=== PATIENT | female | born 1985 | race African-American/Black ===

== ENCOUNTER 2016-09-26 10:37 | Emergency (ER) | payer MEDICAID ==
--- NOTE | 2016-09-26 10:47 | ER Document Report ---
ED Medical Screen (RME) - General Stated Complaint: FLU LIKE SYMPTOMS Mode of Arrival: Ambulatory Information source: Patient Notes: Patient presents with congested cough for a day and a half. Reports nausea denies fever vomiting diarrhea. Reports body aches TRAVEL OUTSIDE OF THE [place] IN LAST 30 DAYS: No - Related Data Allergies/Adverse Reactions: NSAIDS (Non-Steroidal Anti-Inflamma [Nsaids] Allergy (Mild, Verified 01/09/16 16 :29) prednisone [Prednisone] Allergy (Mild, Verified 01/09/16 16:29) Past Medical History - Past Medical History Cardiac Medical History: Denies: Hx Atrial Fibrillation, Hx Congestive Heart Failure, Hx Heart Attack , Hx Hypercholesterolemia, Hx Hypertension Pulmonary Medical History: Reports: Hx Bronchitis, Hx Pneumonia Denies: Hx Asthma, Hx COPD Neurological Medical History: Reports: Hx Migraine, Hx Seizures - Increased frequency with stress Endocrine Medical History: Denies: Hx Diabetes Mellitus Type 1. Comment Only: Hx Diabetes Mellitus Type 2 - Gestational Diabetes GI Medical History: Reports: Hx Gastroesophageal Reflux Disease Psychiatric Medical History: Reports: Hx Anxiety, Hx Depression, Hx Personality Disorder Past Surgical History: Reports: Hx Abdominal Surgery, Hx Cholecystectomy, Hx Gastric Bypass Surgery, Hx Oral Surgery, Hx Tonsillectomy - Immunizations Hx Diphtheria, Pertussis, Tetanus Vaccination: Yes - 2011
[2016-09-26] MEDS ORDERED: ALBUTEROL SULFATE HFA (90 MCG/PUFF) 8 GM MDI (1 MDI/ER DISP) IH PRN (11:40)
--- NOTE | 2016-09-26 11:43 | ER Document Report ---
ED General - General Chief Complaint: Congestion Stated Complaint: FLU LIKE SYMPTOMS Mode of Arrival: Ambulatory Information source: Patient Notes: 31 yr old female who is breast feeding presents with ough of 2 day duration intermittently productive white. pt denies any fevers or chills., admits to sob. TRAVEL OUTSIDE OF THE [place] IN LAST 30 DAYS: No - HPI Onset: Other - 2 day duration Onset/Duration: Persistent Quality of pain: Achy Severity: Mild Pain Level: 1 Associated symptoms: Productive cough, Shortness of breath Exacerbated by: Denies Relieved by: Denies Similar symptoms previously: No Recently seen / treated by doctor: No - Related Data Allergies/Adverse Reactions: NSAIDS (Non-Steroidal Anti-Inflamma [Nsaids] Allergy (Mild, Verified 01/09/16 16 :29) prednisone [Prednisone] Allergy (Mild, Verified 01/09/16 16:29) Past Medical History - General Information source: Patient - Social History Smoking Status: Never Smoker Cigarette use (# per day): No Chew tobacco use (# tins/day): No Smoking Education Provided: No Frequency of alcohol use: None Family History: Reviewed & Not Pertinent Patient has suicidal ideation: No Patient has homicidal ideation: No - Past Medical History Cardiac Medical History: Denies: Hx Atrial Fibrillation, Hx Congestive Heart Failure, Hx Heart Attack , Hx Hypercholesterolemia, Hx Hypertension Pulmonary Medical History: Reports: Hx Bronchitis, Hx Pneumonia Denies: Hx Asthma, Hx COPD Neurological Medical History: Reports: Hx Migraine, Hx Seizures - Increased frequency with stress Endocrine Medical History: Denies: Hx Diabetes Mellitus Type 1. Comment Only: Hx Diabetes Mellitus Type 2 - Gestational Diabetes Renal/ Medical History: Denies: Hx Peritoneal Dialysis GI Medical History: Reports: Hx Gastroesophageal Reflux Disease Psychiatric Medical History: Reports: Hx Anxiety, Hx Depression, Hx Personality Disorder Past Surgical History: Reports: Hx Abdominal Surgery, Hx Cholecystectomy, Hx Gastric Bypass Surgery, Hx Oral Surgery, Hx Tonsillectomy - Immunizations Hx Diphtheria, Pertussis, Tetanus Vaccination: Yes - 2011 Review of Systems - Review of Systems Notes: REVIEW OF SYSTEMS: CONSTITUTIONAL : Denies fever, chills, or sweats. Denies recent illness. EENT: Denies eye, ear, throat, or mouth pain or symptoms. Denies nasal or sinus congestion or discharge. Denies throat, tongue, or mouth swelling or difficulty swallowing. CARDIOVASCULAR: Denies chest pain. Denies palpitations or racing or irregular heart beat. Denies ankle edema. RESPIRATORY: admits to sob, productive cough GASTROINTESTINAL: Denies abdominal pain or distention. Denies nausea, vomiting , or diarrhea. Denies blood in vomitus, stools, or per rectum. Denies black, tarry stools. Denies constipation. GENITOURINARY: Denies difficulty urinating, painful urination, burning, frequency, blood in urine, or discharge. FEMALE GENITOURINARY: Denies vaginal bleeding, heavy or abnormal periods, irregular periods. Denies vaginal discharge or odor. MUSCULOSKELETAL: Denies back or neck pain or stiffness. Denies joint pain or swelling. SKIN: Denies rash, lesions or sores. HEMATOLOGIC : Denies easy bruising or bleeding. LYMPHATIC: Denies swollen, enlarged glands. NEUROLOGICAL: Denies confusion or altered mental status. Denies passing out or loss of consciousness. Denies dizziness or lightheadedness. Denies headache. Denies weakness or paralysis or loss of use of either side. Denies problems with gait or speech. Denies sensory loss, numbness, or tingling. Denies seizures. PSYCHIATRIC: Denies anxiety or stress. Denies depression, suicidal ideation, or homicidal ideation. ALL OTHER SYSTEMS REVIEWED AND NEGATIVE. Dictation was performed using [employer] voice recognition software PHYSICAL EXAMINATION: GENERAL: Well-appearing, well-nourished and in no acute distress. HEAD: Atraumatic, normocephalic. EYES: Pupils equal round and reactive to light, extraocular movements intact, conjunctiva are normal. ENT: Nares patent, oropharynx clear without exudates. Moist mucous membranes. NECK: Normal range of motion, supple without lymphadenopathy LUNGS: coarse rhonchi in the left upper lobe HEART: Regular rate and rhythm without murmurs ABDOMEN: Soft, nontender, nondistended abdomen. No guarding, no rebound. No masses appreciated. Female : deferred Musculoskeletal: Normal range of motion, no pitting or edema. No cyanosis. NEUROLOGICAL: Cranial nerves grossly intact. Normal speech, normal gait. Normal sensory, motor exams PSYCH: Normal mood, normal affect. SKIN: Warm, Dry, normal turgor, no rashes or lesions noted. Physical Exam - Vital signs Vitals: Temp Pulse Resp BP Pulse Ox 98.0 F 82 16 128/90 H 100 09/26/16 10:42 09/26/16 10:42 09/26/16 10:42 09/26/16 10:42 09/26/16 10:42 Course - Re-evaluation Re-evalutation: 09/26/16 11:42 pt to be given albuterol inhaler, xray is pending 09/26/16 12:03 Chest x-ray was negative, patient will be treated as uri bronchitis After performing a Medical Screening Examination, I estimate there is LOW risk for ACUTE CORONARY SYNDROME, RESPIRATORY FAILURE, SEPSIS OR MENINGITIS, thus I consider the discharge disposition reasonable. The patient and I have discussed the diagnosis and risks, and we agree with discharging home with close follow- up. We also discussed returning to the Emergency Department immediately if new or worsening symptoms occur. We have discussed the symptoms which are most concerning (e.g., changing or worsening pain, trouble swallowing or breathing, neck stiffness, fever) that necessitate immediate return. - Vital Signs Vital signs: Temp Pulse Resp BP Pulse Ox 98.0 F 82 16 128/90 H 100 09/26/16 10:42 09/26/16 10:42 09/26/16 10:42 09/26/16 10:42 09/26/16 10:42 - Diagnostic Test Radiology reviewed: Image reviewed, Reports reviewed Discharge - Discharge Clinical Impression: Cough URI (upper respiratory infection) Qualifiers: URI type: unspecified viral URI Qualified Code(s): J06.9 - Acute upper respiratory infection, unspecified; B97.89 - Other viral agents as the cause of diseases classified elsewhere Condition: Stable Disposition: HOME, SELF-CARE Instructions: Upper Respiratory Illness ([facility]) Referrals: FRANK BROWER MD [Primary Care Provider] - Follow up in 3-5 days
[2016-09-26 12:47] VITALS: BP 128/81
== END 2016-09-26 12:47 | disposition home or self-care (01) ==
LOC: ER 10:37
DX: J06.9 Acute upper respiratory infection, unspecified (principal); B97.89 Other viral agents as the cause of diseases classified elsewhere; R06.02 Shortness of breath; Z90.49 Acquired absence of other specified parts of digestive tract; Z98.84 Bariatric surgery status
CPT/HCPCS: 99283; 87804; 71020; J3490

== ENCOUNTER 2017-03-16 13:53 | Emergency (ER) | payer MEDICAID ==
[2017-03-16] MEDS ORDERED: LORAZEPAM 0.5 MG TABLET PO ONE (14:08)
--- NOTE | 2017-03-16 14:14 | ER Document Report ---
ED Medical Screen (RME) - General Chief Complaint: Seizure Stated Complaint: FALL/WEAK, BACK PAIN Time Seen by Provider: 03/16/17 14:05 Mode of Arrival: Wheelchair Information source: Patient, Relative TRAVEL OUTSIDE OF THE [place] IN LAST 30 DAYS: No - HPI Onset: This morning Onset/Duration: Sudden Quality of pain: Dull - LOW BACK Severity: Mild Associated Symptoms: Dizzy/lightheaded, Leg swelling, Nausea, Weakness. denies : Abdominal pain, Fever Exacerbated by: Movement Relieved by: Remaining still Similar symptoms previously: Yes - SZS. THOUGHT TO BE STRESS-RELATED Recently seen / treated by doctor: No - Related Data Smoking: Non-smoker Frequency of alcohol use: None Drug Abuse: None Allergies/Adverse Reactions: NSAIDS (Non-Steroidal Anti-Inflamma [Nsaids] Allergy (Mild, Verified 03/16/17 14 :01) prednisone [Prednisone] Allergy (Mild, Verified 03/16/17 14:01) Past Medical History - General Information source: Patient - Social History Cigarette use (# per day): No Chew tobacco use (# tins/day): No Frequency of alcohol use: None Drug Abuse: None Lives with: Spouse/Significant other - Past Medical History Cardiac Medical History: Denies: Hx Atrial Fibrillation, Hx Congestive Heart Failure, Hx Heart Attack , Hx Hypercholesterolemia, Hx Hypertension Pulmonary Medical History: Reports: Hx Bronchitis, Hx Pneumonia Denies: Hx Asthma, Hx COPD Neurological Medical History: Reports: Hx Migraine, Hx Seizures - Increased frequency with stress Endocrine Medical History: Denies: Hx Diabetes Mellitus Type 1. Comment Only: Hx Diabetes Mellitus Type 2 - Gestational Diabetes Renal/ Medical History: Denies: Hx Peritoneal Dialysis GI Medical History: Reports: Hx Gastroesophageal Reflux Disease Psychiatric Medical History: Reports: Hx Anxiety, Hx Attention Deficit Hyperactivity Disorder, Hx Depression, Hx Personality Disorder Past Surgical History: Reports: Hx Abdominal Surgery, Hx Cholecystectomy, Hx Gastric Bypass Surgery, Hx Oral Surgery, Hx Tonsillectomy - Immunizations Hx Diphtheria, Pertussis, Tetanus Vaccination: Yes - 2011 Review of Systems - Review of Systems Constitutional: See HPI EENT: No symptoms reported Cardiovascular: See HPI, Edema Respiratory: No symptoms reported Gastrointestinal: See HPI Female Genitourinary: No symptoms reported Musculoskeletal: No symptoms reported Neurological/Psychological: See HPI Physical Exam - Vital signs Vitals: Temp Pulse Resp BP Pulse Ox 98.5 F 96 18 105/61 100 07/16/17 14:00 03/16/17 14:00 03/16/17 14:00 03/16/17 14:00 03/16/17 14:00 Interpretation: Normal. No: Tachycardic, Tachypneic, Febrile - General General appearance: Appears well, Alert In distress: None Course - Vital Signs Vital signs: Temp Pulse Resp BP Pulse Ox 98.5 F 96 18 105/61 100 03/16/17 14:00 03/16/17 14:00 03/16/17 14:00 03/16/17 14:00 03/16/17 14:00
[2017-03-16 14:33] LABS: ABSOLUTE BASOPHILS # (AUTO) 0.1 10^3/uL (0.0-0.2); ABSOLUTE EOSINOPHILS # (AUTO) 0.2 10^3/uL (0.0-0.6); ABSOLUTE LYMPHOCYTES (AUTO) 2.3 10^3/uL (0.5-4.7); ABSOLUTE MONOCYTES (AUTO) 0.4 10^3/uL (0.1-1.4); ABSOLUTE NEUT (AUTO) 3.3 10^3/uL (1.7-8.2); BASOPHILS % (AUTO) 0.8 % (0-2); EOSINOPHILS % (AUTO) 2.5 % (0-6); HEMATOCRIT 26.9 % (36.0-47.0); HGB HCT DIFFERENCE -2.9; LYMPHOCYTES % (AUTO) 37.2 % (13-45); MEAN CORPUSCULAR HEMOGLOBIN 18.6 pg (27.0-33.4); MEAN CORPUSCULAR HGB CONC 29.8 g/dL (32.0-36.0); MONOCYTES % (AUTO) 6.4 % (3-13); RED CELL DISTRIBUTION WIDTH 18.1 % (11.5-14.0); SEGMENTED NEUTROPHILS % (AUTO) 53.1 % (42-78); WHITE BLOOD COUNT 6.3 10^3/uL (4.0-10.5)
--- NOTE | 2017-03-16 14:33 | ER Document Report ---
ED General - General Chief Complaint: Seizure Stated Complaint: FALL/WEAK, BACK PAIN Time Seen by Provider: 03/16/17 14:05 Mode of Arrival: Wheelchair Information source: Patient Notes: 32 yo female with hx fibromyalgia, anemic, seizures (anxiety or stress), depression, ADD, borderine personality disorder,chronic low back pain with sciatica, migraines, gastric bypass, gestational DM, jas, tonsillectomy, wisdom teeth out, c/o lightheaded while in shower 10 am, after sitting down, had a seizure (witnessed by spouse eyes rolled back in head, body and arms shaking while in chair) unresponsive, tried to get up and go to [employer], remembers falling but caught my head at 10:15am. Normally after a seizure can go back to normal after 30 minutes but not today. Still feels shakey , migraine posterior occiput and forhead, tongue feels deena, inside of body shakey, very weak. c/o lega,feet, ankle swelling for a few days. Neurologist Dr. Sagastume-[place] 1000mg bid, Vimpat 200mg bid, Lyrica, fioricet, oxycodone, viibryd, adderall, xanax. No change in doses.. Last seizure few months ago. No recent illness. Her concern is that she feels so drained and has increased ( more than usual) low back pain with radiation into right buttocks. [facility] pain management. Pt denies oxycodone today. TRAVEL OUTSIDE OF THE [place] IN LAST 30 DAYS: No - Related Data Allergies/Adverse Reactions: NSAIDS (Non-Steroidal Anti-Inflamma [Nsaids] Allergy (Mild, Verified 03/16/17 14 :01) prednisone [Prednisone] Allergy (Mild, Verified 03/16/17 14:01) Past Medical History - General Information source: Patient - Social History Smoking Status: Never Smoker Cigarette use (# per day): No Chew tobacco use (# tins/day): No Frequency of alcohol use: None Drug Abuse: None Lives with: Spouse/Significant other Family History: Reviewed & Not Pertinent Patient has suicidal ideation: No Patient has homicidal ideation: No Pulmonary Medical History: Reports: Hx Bronchitis, Hx Pneumonia Neurological Medical History: Reports: Hx Migraine, Hx Seizures - Increased frequency with stress Endocrine Medical History: Comment Only: Hx Diabetes Mellitus Type 2 - Gestational Diabetes Renal/ Medical History: Denies: Hx Peritoneal Dialysis GI Medical History: Reports: Hx Gastroesophageal Reflux Disease Musculoskeltal Medical History: Reports Hx Fibromyalgia Psychiatric Medical History: Reports: Hx Anxiety, Hx Attention Deficit Hyperactivity Disorder, Hx Depression, Hx Personality Disorder Past Surgical History: Reports: Hx Cholecystectomy, Hx Gastric Bypass Surgery, Hx Oral Surgery, Hx Tonsillectomy - Immunizations Hx Diphtheria, Pertussis, Tetanus Vaccination: Yes - 2011 Review of Systems - Review of Systems Constitutional: See HPI EENT: No symptoms reported Cardiovascular: No symptoms reported Respiratory: No symptoms reported Gastrointestinal: No symptoms reported Genitourinary: No symptoms reported Female Genitourinary: No symptoms reported Musculoskeletal: See HPI Skin: No symptoms reported Hematologic/Lymphatic: No symptoms reported Neurological/Psychological: See HPI Physical Exam - Vital signs Vitals: Temp Pulse Resp BP Pulse Ox 98.5 F 96 18 105/61 100 03/16/17 14:00 03/16/17 14:00 03/16/17 14:00 03/16/17 14:00 03/16/17 14:00 Interpretation: Normal - Notes Notes: sleepy - General General appearance: Appears well, Alert In distress: None - HEENT Head: Normocephalic, Atraumatic Eyes: Normal Conjunctiva: Normal Pupils: PERRL Mucous membranes: Normal Pharynx: Normal Neck: Supple. No: Lymphadenopathy - Respiratory Respiratory status: No respiratory distress Chest status: Nontender Breath sounds: Normal Chest palpation: Normal - Cardiovascular Rhythm: Regular Heart sounds: Normal auscultation Murmur: No - Abdominal Inspection: Normal Distension: No distension Bowel sounds: Normal Tenderness: Nontender. No: Tender Organomegaly: No organomegaly - Back Back: Normal, Tender - lumbar paraspinal muscles. No: Vertebra tenderness - Extremities General upper extremity: Normal inspection, Nontender, Normal color, Normal ROM , Normal temperature General lower extremity: Normal inspection, Nontender, Normal color, Normal ROM , Normal temperature, Normal weight bearing. No: Zahida's sign Ankle: Edema - mild bilateral - Neurological Neuro grossly intact: Yes Cognition: Normal Orientation: AAOx4 Sarah Coma Scale Eye Opening: Spontaneous Sarah Coma Scale Verbal: Oriented Sarah Coma Scale Motor: Obeys Commands Sarah Coma Scale Total: 15 Speech: Normal Motor strength normal: LUE, RUE, LLE, RLE Sensory: Normal Knee - Reflex grade: 1 = Hypoactive - pooja Ankle - Reflex grade: 1 = Hypoactive - pooja - Psychological Associated symptoms: Excessive sleeping, Flat affect - Skin Skin Temperature: Warm Skin Moisture: Dry Skin Color: Normal Skin irregularity: negative: Rash Course - Re-evaluation Re-evalutation: 03/16/17 15:34 falls asleep while taliking with her. HBG 8, lowest recorded at [facility] (8.6). supposed to take iron, not taking it. 03/16/17 15:[address] quintero, give 500ml NS fluid, no blood needed to be transfused. 03/16/17 16:13 neg hem stool. 03/16/17 17:42 dr quintero states OK to go home with iron po. pt feels better, walked to the bathroom. tongue tingling is gone. vitals stable - Vital Signs Vital signs: Temp Pulse Resp BP Pulse Ox 98.5 F 96 18 105/61 100 03/16/17 14:00 03/16/17 14:00 03/16/17 14:00 03/16/17 14:00 03/16/17 14:00 - Laboratory Result Diagrams: 03/16/17 14:10 03/16/17 14:10 Laboratory results interpreted by me: 03/16/17 03/16/17 14:10 14:10 Hgb 8.0 L Hct 26.9 L MCV 63 L MCH 18.6 L MCHC 29.8 L RDW 18.1 H Chloride 109 H Glucose 126 H AST 43 H ALT 80 H Total Protein 6.1 L Albumin 3.2 L Discharge - Discharge Clinical Impression: Elevated liver enzymes, Somnolence, Seizure Anemia Qualifiers: Anemia type: iron deficiency Iron deficiency anemia type: unspecified iron deficiency Qualified Code(s): D50.9 - Iron deficiency anemia, unspecified Chronic back pain Qualifiers: Back pain location: low back pain Back pain laterality: right Sciatica presence : without sciatica Qualified Code(s): M54.5 - Low back pain; G89.29 - Other chronic pain Condition: Good Disposition: HOME, SELF-CARE Instructions: Anemia, Iron Deficiency ([facility]), Seizure, Known Epileptic ([facility]), Fatigue ([facility]) Additional Instructions: take the iron to restore your iron levels and increase your circulating hemaglobin copy of labs given to you for dr. oscar to er if worse see your neurologist dr. sagastume. Please complete the patient satisfaction survey if you get one, and return it.. If you do not receive a survey, then you can go to the [facility] website, [email or web address] and place your comments about your very good care. Thank you very much. It was a pleasure being your medical provider today. Prescriptions: Ferrous Sulfate [Iron] 325 mg PO BID #60 tablet Referrals: PERLA OSCAR MD [Primary Care Provider] - Follow up tomorrow
[2017-03-16 14:37] LABS: APPEARANCE,URINE SLIGHTLY-CLOUDY; BILIRUBIN,URINE NEGATIVE (NEGATIVE); GLUCOSE, URINE NEGATIVE (NEGATIVE); KETONES,URINE NEGATIVE (NEGATIVE); LEUKOCYTE ESTERASE,URINE NEGATIVE (NEGATIVE); NITRITE,URINE NEGATIVE (NEGATIVE); PROTEIN,URINE NEGATIVE (NEGATIVE); URINE SPECIFIC GRAVITY 1.029; UROBILINOGEN,URINE NEGATIVE mg/dL (<2.0)
[2017-03-16 14:50] LABS: ALANINE AMINOTRANSFERASE 80 U/L (9-52); ALBUMIN 3.2 g/dL (3.5-5.0); ALKALINE PHOSPHATASE 92 U/L (38-126); ANION GAP 8 (5-19); ASPARTATE AMINO TRANSFERASE 43 U/L (14-36); BILIRUBIN,DIRECT 0.2 mg/dL (0.0-0.4); BILIRUBIN,TOTAL 0.3 mg/dL (0.2-1.3); BLOOD UREA NITROGEN 9 mg/dL (7-20); CALCIUM 8.9 mg/dL (8.4-10.2); CARBON DIOXIDE 26 mmol/L (22-30); CHLORIDE 109 mmol/L (98-107); CREATININE RESULT 0.81 mg/dL (0.52-1.25); GLUCOSE 126 mg/dL (75-110); MAGNESIUM 1.8 mg/dL (1.6-2.3); POTASSIUM 4.2 mmol/L (3.6-5.0); SODIUM 142.5 mmol/L (137-145); TOTAL PROTEIN 6.1 g/dL (6.3-8.2)
[2017-03-16 14:57] LABS: ANISOCYTOSIS 2+; HELMET CELLS SLIGHT; HYPOCHROMASIA 3+; MICROCYTOSIS 3+; POIKILOCYTOSIS 2+; POLYCHROMASIA SLIGHT
[2017-03-16 14:58] LABS: MEAN CORPUSCULAR VOLUME 63 fl (80-97); OVALOCYTES SLIGHT; TARGET CELLS SLIGHT; TEAR DROP CELLS SLIGHT
[2017-03-16 15:26] LABS: URINE BARBITURATES SCREEN UNCONFIRMED POSITIVE; URINE METHADONE SCREEN NEGATIVE; URINE OPIATES LOW NEGATIVE; URINE PHENCYCLIDINE SCREEN NEGATIVE
[2017-03-16] MEDS ORDERED: NORMAL SALINE 1000 ML 500 ML IV ONE (15:53)
[2017-03-16] MEDS ORDERED: FERROUS SULFATE LIQUID 300 MG/5 ML UDC PO ONE (17:55)
[2017-03-16] MEDS ORDERED: FERROUS SULFATE 325 MG TABLET PO ONE (18:29)
[2017-03-16 20:03] VITALS: BP 123/87
[2017-03-17 15:36] LABS: PATH REVIEW PATHOLOGIST REVIEWED
== END 2017-03-16 20:03 | disposition home or self-care (01) ==
LOC: ER 13:53
DX: D50.9 Iron deficiency anemia, unspecified (principal); M54.5 Low back pain; R74.8 Abnormal levels of other serum enzymes; R40.0 Somnolence; R56.9 Unspecified convulsions; R53.1 Weakness; G89.29 Other chronic pain
CPT/HCPCS: 99284; 36415; 83735; 84703; 85025; 82272; 80053; 81001; 80307; J3490; J7030

== ENCOUNTER 2017-05-25 17:33 | Emergency (ER) | payer MEDICAID ==
[2017-05-25 17:38] VITALS: BP 122/70
[2017-05-25] MEDS ORDERED: LORAZEPAM 1 MG TABLET PO ONE (17:58)
--- NOTE | 2017-05-25 18:01 | ER Document Report ---
ED General - General Chief Complaint: Chest Pain Stated Complaint: CHEST PAIN Time Seen by Provider: 05/25/17 17:52 Mode of Arrival: Ambulatory Information source: Patient Notes: 32-year-old female presents with complaints of left-sided chest pain sharp that comes on all of a sudden when she is stressed. Patient notes when she is relaxed there is no pain but when her kids are anxious that the pain worsens. Patient denies any fevers or chills denies any DVT or PE risk factors. Patient denies any cardiac family history TRAVEL OUTSIDE OF THE [place] IN LAST 30 DAYS: No - HPI Onset: Other - 3 day duration Onset/Duration: Intermittent Quality of pain: Sharp Severity: Mild Pain Level: 1 Associated symptoms: Chest pain Exacerbated by: Other - Anxiety stress Relieved by: Denies Similar symptoms previously: No Recently seen / treated by doctor: No - Related Data Allergies/Adverse Reactions: NSAIDS (Non-Steroidal Anti-Inflamma [Nsaids] Allergy (Mild, Verified 05/25/17 17 :36) prednisone [Prednisone] Allergy (Mild, Verified 05/25/17 17:36) Past Medical History - Social History Smoking Status: Never Smoker Cigarette use (# per day): No Chew tobacco use (# tins/day): No Smoking Education Provided: No Frequency of alcohol use: None Drug Abuse: None Family History: Reviewed & Not Pertinent - Past Medical History Cardiac Medical History: Denies: Hx Atrial Fibrillation, Hx Congestive Heart Failure, Hx Heart Attack , Hx Hypercholesterolemia, Hx Hypertension Pulmonary Medical History: Reports: Hx Bronchitis, Hx Pneumonia Denies: Hx Asthma, Hx COPD Neurological Medical History: Reports: Hx Migraine, Hx Seizures - Increased frequency with stress Endocrine Medical History: Denies: Hx Diabetes Mellitus Type 1. Comment Only: Hx Diabetes Mellitus Type 2 - Gestational Diabetes Renal/ Medical History: Denies: Hx Peritoneal Dialysis GI Medical History: Reports: Hx Gastroesophageal Reflux Disease Musculoskeltal Medical History: Reports Hx Fibromyalgia Psychiatric Medical History: Reports: Hx Anxiety, Hx Attention Deficit Hyperactivity Disorder, Hx Depression, Hx Personality Disorder Past Surgical History: Reports: Hx Abdominal Surgery, Hx Cholecystectomy, Hx Gastric Bypass Surgery, Hx Oral Surgery, Hx Tonsillectomy - Immunizations Hx Diphtheria, Pertussis, Tetanus Vaccination: Yes - 2011 Review of Systems - Review of Systems Notes: REVIEW OF SYSTEMS: CONSTITUTIONAL : Denies fever, chills, or sweats. Denies recent illness. EENT: Denies eye, ear, throat, or mouth pain or symptoms. Denies nasal or sinus congestion or discharge. Denies throat, tongue, or mouth swelling or difficulty swallowing. CARDIOVASCULAR: Admits to chest pain RESPIRATORY: Denies cough, cold, or chest congestion. Denies shortness of breath, difficulty breathing, or wheezing. GASTROINTESTINAL: Denies abdominal pain or distention. Denies nausea, vomiting , or diarrhea. Denies blood in vomitus, stools, or per rectum. Denies black, tarry stools. Denies constipation. GENITOURINARY: Denies difficulty urinating, painful urination, burning, frequency, blood in urine, or discharge. FEMALE GENITOURINARY: Denies vaginal bleeding, heavy or abnormal periods, irregular periods. Denies vaginal discharge or odor. MUSCULOSKELETAL: Denies back or neck pain or stiffness. Denies joint pain or swelling. SKIN: Denies rash, lesions or sores. HEMATOLOGIC : Denies easy bruising or bleeding. LYMPHATIC: Denies swollen, enlarged glands. NEUROLOGICAL: Denies confusion or altered mental status. Denies passing out or loss of consciousness. Denies dizziness or lightheadedness. Denies headache. Denies weakness or paralysis or loss of use of either side. Denies problems with gait or speech. Denies sensory loss, numbness, or tingling. Denies seizures. PSYCHIATRIC: Anxious ALL OTHER SYSTEMS REVIEWED AND NEGATIVE. PHYSICAL EXAMINATION: GENERAL: Well-appearing, well-nourished and in no acute distress. HEAD: Atraumatic, normocephalic. EYES: Pupils equal round and reactive to light, extraocular movements intact, conjunctiva are normal. ENT: Nares patent, oropharynx clear without exudates. Moist mucous membranes. NECK: Normal range of motion, supple without lymphadenopathy LUNGS: Breath sounds clear to auscultation bilaterally and equal. No wheezes rales or rhonchi. HEART: Tachycardic s reproducible chest pain on palpation of the left anterior chest wall ABDOMEN: Soft, nontender, nondistended abdomen. No guarding, no rebound. No masses appreciated. Female : deferred Musculoskeletal: Normal range of motion, no pitting or edema. No cyanosis. NEUROLOGICAL: Cranial nerves grossly intact. Normal speech, normal gait. Normal sensory, motor exams PSYCH: Anxious SKIN: Warm, Dry, normal turgor, no rashes or lesions noted. Dictation was performed using [employer] voice recognition software Physical Exam - Vital signs Vitals: Temp Pulse Resp BP Pulse Ox 99.0 F 112 H 18 122/70 98 05/25/17 17:37 05/25/17 17:37 05/25/17 17:37 05/25/17 17:37 05/25/17 17:37 Course - Re-evaluation Re-evalutation: 05/25/17 18:01 I have very low suspicion for a pulmonary emboli given the symptoms come and go 05/25/17 19:39 lab work imaging noted no significantly abnomality pt notes it is probably anxiety related and i agree álvaro ltreat with decadron (pt ntoes allergy to prednisone is disposition to ulcers, agrees with trying decadron) After performing a Medical Screening Examination, I estimate there is LOW risk for RUPTURED ESOPHAGUS, PNEUMOTHORAX, PULMONARY EMBOLISM, ACUTE CORONARY SYNDROME, OR THORACIC AORTIC DISSECTION, thus I consider the discharge disposition reasonable. I have reevaluated this patient multiple times and no significant life threatening changes are noted. The patient and I have discussed the diagnosis and risks, and we agree with discharging home with close follow-up. We also discussed returning to the Emergency Department immediately if new or worsening symptoms occur. We have discussed the symptoms which are most concerning (e.g., bloody sputum, worsening pain or shortness of breath) that necessitate immediate return. - Vital Signs Vital signs: Temp Pulse Resp BP Pulse Ox 99.0 F 112 H 18 122/70 98 05/25/17 17:37 05/25/17 17:37 05/25/17 17:37 05/25/17 17:37 05/25/17 17:37 - Laboratory Result Diagrams: 05/25/17 18:48 05/25/17 18:48 Laboratory results interpreted by me: 05/25/17 05/25/17 18:48 18:48 WBC 11.3 H Hgb 10.0 L Hct 33.0 L MCV 67 L MCH 20.4 L MCHC 30.4 L RDW 23.9 H Chloride 108 H - Diagnostic Test Radiology reviewed: Image reviewed, Reports reviewed - EKG Interpretation by Al EKG shows normal: Sinus rhythm, Matthews, Intervals, QRS Complexes Rate: Tachycardia Discharge - Discharge Clinical Impression: Anxiety Chest pain Qualifiers: Chest pain type: unspecified Qualified Code(s): R07.9 - Chest pain, unspecified Condition: Stable Disposition: HOME, SELF-CARE Instructions: Chest Pain of Unclear Cause ([facility]) Additional Instructions: Follow up with your physician tomorrow for further care or return to the ED IMMEDIATELY if symptoms worsen or new concerns occur. If you cannot afford to follow up with your primary care physician a list of low cost clinics have been provided at the end of your discharge papers as well. Prescriptions: Lorazepam [Ativan 1 mg Tablet] 1 mg PO Q4 PRN #14 tab PRN Reason:
[2017-05-25] MEDS ORDERED: HYDROCODONE/ACETAMINOPHEN 5-325 MG TABLET PO ONE (18:32)
[2017-05-25 19:00] LABS: ABSOLUTE BASOPHILS # (AUTO) 0.1 10^3/uL (0.0-0.2); ABSOLUTE EOSINOPHILS # (AUTO) 0.1 10^3/uL (0.0-0.6); ABSOLUTE MONOCYTES (AUTO) 0.8 10^3/uL (0.1-1.4); ABSOLUTE NEUT (AUTO) 7.4 10^3/uL (1.7-8.2); BASOPHILS % (AUTO) 0.7 % (0-2); EOSINOPHILS % (AUTO) 0.5 % (0-6); LYMPHOCYTES % (AUTO) 26.4 % (13-45); MEAN CORPUSCULAR HEMOGLOBIN 20.4 pg (27.0-33.4); MEAN CORPUSCULAR HGB CONC 30.4 g/dL (32.0-36.0); MEAN CORPUSCULAR VOLUME 67 fl (80-97); MONOCYTES % (AUTO) 6.9 % (3-13); RED BLOOD COUNT 4.91 10^6/uL (3.72-5.28); RED CELL DISTRIBUTION WIDTH 23.9 % (11.5-14.0); SEGMENTED NEUTROPHILS % (AUTO) 65.5 % (42-78); WHITE BLOOD COUNT 11.3 10^3/uL (4.0-10.5)
--- NOTE | 2017-05-25 19:14 | RADIOLOGY REPORT (SQ) ---
EXAM DESCRIPTION: CHEST PA/LAT COMPLETED DATE/TIME: 05/25/2017 7:02 pm REASON FOR STUDY: chest pain COMPARISON: 09/26/2016 EXAM PARAMETERS: NUMBER OF VIEWS: two views TECHNIQUE: Digital Frontal and Lateral radiographic views of the chest acquired. RADIATION DOSE: NA LIMITATIONS: none FINDINGS: LUNGS AND PLEURA: No opacities, masses or pneumothorax. No pleural effusion. MEDIASTINUM AND HILAR STRUCTURES: No masses or contour abnormalities. HEART AND VASCULAR STRUCTURES: Heart normal size. No evidence for failure. BONES: No acute findings. HARDWARE: None in the chest. OTHER: No other significant finding. IMPRESSION: NO SIGNIFICANT RADIOGRAPHIC FINDING IN THE CHEST. TECHNICAL DOCUMENTATION: JOB ID: [id number] [employer]- All Rights Reserved
[2017-05-25 19:17] LABS: ALANINE AMINOTRANSFERASE 39 U/L (9-52); ALBUMIN 3.8 g/dL (3.5-5.0); ALKALINE PHOSPHATASE 76 U/L (38-126); ANION GAP 9 (5-19); ASPARTATE AMINO TRANSFERASE 23 U/L (14-36); BILIRUBIN,DIRECT 0.2 mg/dL (0.0-0.4); BILIRUBIN,TOTAL 0.2 mg/dL (0.2-1.3); BLOOD UREA NITROGEN 17 mg/dL (7-20); CALCIUM 9.4 mg/dL (8.4-10.2); CARBON DIOXIDE 26 mmol/L (22-30); CHLORIDE 108 mmol/L (98-107); CREATINE KINASE 60 U/L (30-135); CREATININE RESULT 0.77 mg/dL (0.52-1.25); GLUCOSE 84 mg/dL (75-110); POTASSIUM 4.8 mmol/L (3.6-5.0); SODIUM 143.4 mmol/L (137-145); TOTAL PROTEIN 6.8 g/dL (6.3-8.2)
[2017-05-25 19:30] LABS: CREATINE KINASE MB < 0.22 ng/mL (<4.55); TROPONIN I < 0.012 ng/mL
[2017-05-25] MEDS ORDERED: DEXAMETHASONE SOD PHOS INJ 10 MG/1 ML VIAL IM ONE (19:38)
--- NOTE | 2017-05-25 19:54 | EKG REPORT ---
SEVERITY:- OTHERWISE NORMAL ECG - SINUS TACHYCARDIA : Confirmed by: César Joseph MD 25-May-2017 19:53:42
== END 2017-05-25 19:47 | disposition home or self-care (01) ==
LOC: ER 17:33
DX: F41.9 Anxiety disorder, unspecified (principal); R07.9 Chest pain, unspecified; Z90.49 Acquired absence of other specified parts of digestive tract; Z98.84 Bariatric surgery status
CPT/HCPCS: 93005; 99285; 96372; 36415; 82553; 82550; 85025; 80053; 84484; 85379; 71020; 93010; J1100

== ENCOUNTER 2017-06-10 21:10 | Emergency (ER) | payer OTHER ==
[2017-06-10 21:45] VITALS: BP 136/72
--- NOTE | 2017-06-10 22:59 | ER Document Report ---
ED Extremity Problem, Lower - General Chief Complaint: Feet Swelling Stated Complaint: FEET SWOLLEN Time Seen by Provider: 06/10/17 22:50 Notes: The patient is a 32-year-old female, past medical history fibromyalgia, sciatica , presents with 2 days of bilateral ankle swelling that is worse at the end of the day and improves with elevation. She has compression stockings at home, but has not used them. She said that she does not eat a high salt diet. Patient also said that she noticed mild bleeding from the tongue, but this has stopped. Denies shortness of breath, chest pain, nausea, vomiting, fevers, difficulty walking, ankle injury, calf tenderness or back pain. TRAVEL OUTSIDE OF THE [place] IN LAST 30 DAYS: No - Related Data Allergies/Adverse Reactions: NSAIDS (Non-Steroidal Anti-Inflamma [Nsaids] Allergy (Mild, Verified 06/10/17 21 :42) prednisone [Prednisone] Allergy (Mild, Verified 06/10/17 21:42) Past Medical History - General Information source: Patient - Social History Smoking Status: Unknown if Ever Smoked Family History: Reviewed & Not Pertinent Patient has suicidal ideation: No Patient has homicidal ideation: No - Past Medical History Cardiac Medical History: Denies: Hx Atrial Fibrillation, Hx Congestive Heart Failure, Hx Heart Attack , Hx Hypercholesterolemia, Hx Hypertension Pulmonary Medical History: Reports: Hx Bronchitis, Hx Pneumonia Denies: Hx Asthma, Hx COPD Neurological Medical History: Reports: Hx Migraine, Hx Seizures - Increased frequency with stress Endocrine Medical History: Denies: Hx Diabetes Mellitus Type 1. Comment Only: Hx Diabetes Mellitus Type 2 - Gestational Diabetes Renal/ Medical History: Denies: Hx Peritoneal Dialysis GI Medical History: Reports: Hx Gastroesophageal Reflux Disease Musculoskeltal Medical History: Reports Hx Fibromyalgia Psychiatric Medical History: Reports: Hx Anxiety, Hx Attention Deficit Hyperactivity Disorder, Hx Depression, Hx Personality Disorder Past Surgical History: Reports: Hx Abdominal Surgery, Hx Cholecystectomy, Hx Gastric Bypass Surgery, Hx Oral Surgery, Hx Tonsillectomy - Immunizations Hx Diphtheria, Pertussis, Tetanus Vaccination: Yes - 2011 Review of Systems - Review of Systems Notes: REVIEW OF SYSTEMS: CONSTITUTIONAL: -fevers, -chills EENT: -eye pain, -difficulty swallowing, -nasal congestion CARDIOVASCULAR: -chest pain, -syncope. RESPIRATORY: -cough, -SOB GASTROINTESTINAL: -abdominal pain, -nausea, -vomiting, -diarrhea GENITOURINARY: -dysuria, -hematuria MUSCULOSKELETAL: +B/L ankle swelling, -back pain, -neck pain SKIN: -rash or skin lesions. HEMATOLOGIC: -easy bruising or bleeding. LYMPHATIC: -swollen, enlarged glands. NEUROLOGICAL: -altered mental status or loss of consciousness, -headache, - neurologic symptoms PSYCHIATRIC: -anxiety, -depression. ALL OTHER SYSTEMS REVIEWED AND NEGATIVE. Physical Exam - Vital signs Vitals: Temp Pulse Resp BP Pulse Ox 98.6 F 102 H 18 136/72 H 100 06/10/17 21:42 06/10/17 21:42 06/10/17 21:42 06/10/17 21:42 06/10/17 21:42 - Notes Notes: PHYSICAL EXAMINATION: GENERAL: Well-appearing, well-nourished and in no acute distress. HEAD: Atraumatic, normocephalic. EYES: Pupils equal round and reactive to light, extraocular movements intact, sclera anicteric, conjunctiva are normal. Tongue appears dry without active bleeding or thrush. ENT: nares patent, oropharynx clear without exudates. Moist mucous membranes. NECK: Normal range of motion, supple without lymphadenopathy LUNGS: Breath sounds clear to auscultation bilaterally and equal. No wheezes rales or rhonchi. HEART: Regular rate and rhythm without murmurs ABDOMEN: Soft, nontender, normoactive bowel sounds. No guarding, no rebound. No masses appreciated. EXTREMITIES: Normal range of motion. Non-tender ankle. 1+ pitting edema around B /L ankles. No cyanosis. NEUROLOGICAL: Cranial nerves grossly intact. Normal speech, normal gait. Normal sensory and motor exams. PSYCH: Angry affect. SKIN: Warm, Dry, normal turgor, no rashes or lesions noted. Course - Re-evaluation Re-evalutation: Patient appears very well and her vitals are stable. With the mild ankle edema worsening at the end of the day and improving with elevation, she was likely has dependent edema. Instructed her about treatment with low-salt diet, leg elevation and compression socks. She does not require blood work at this time because she is not having any shortness of breath or chest pain to suggest pulmonary edema. She has no bleeding or thrush from her tongue and it appears normal. Patient became angry when I instructed her about symptomatic treatment for the dependent edema. When I asked what her concerns were, she would not provide a straight answer and continued to repeat that her ankles were swollen. No emergent condition identified at this time and patient will follow-up with her primary care physician. Patient presents with multiple vague complaints that did not appear to be concerning for any acute life-threatening pathology. Vitals are within normal limits at triage and at time of discharge. Physical examination is unremarkable. Patient has tolerated oral intake without difficulty. Patient was not noted to be in distress at any point during their ER visit. At this time, based on the reassuring evaluation, I do not suspect an acute [place], pulmonary embolus, aortic dissection, acute intra-abdominal pathology, stroke, DVT or sepsis. Will discharge with return precautions and follow-up recommendations. Verbal discharge instructions given a the bedside and opportunity for questions given. Medication warnings reviewed. Patient is in agreement with this plan and has verbalized understanding of return precautions and the need for primary care follow-up in the next 24-72 hours. - Vital Signs Vital signs: Temp Pulse Resp BP Pulse Ox 98.6 F 102 H 18 136/72 H 100 06/10/17 21:42 06/10/17 21:42 06/10/17 21:42 06/10/17 21:42 06/10/17 21:42 Discharge - Discharge Clinical Impression: Mild peripheral edema Condition: Stable Disposition: HOME, SELF-CARE Additional Instructions: Edema, Peripheral You have swelling in your legs. This is called peripheral edema. It can be caused by "leaky capillaries," inflammation, disease of the leg veins, or excess salt and water in your body. Avoid prolonged standing. If you must sit for a long time, occasionally get up and walk around or elevate your legs. Support stockings can be helpful in limiting swelling. Often diuretic or water pills are used to remove excess salt and water from your body. Call the doctor or return if you develop increased swelling, pain, or redness, shortness of breath, chest pain, or any other significant change.
== END 2017-06-10 23:22 | disposition home or self-care (01) ==
LOC: ER 21:10
DX: R60.9 Edema, unspecified (principal); Z90.49 Acquired absence of other specified parts of digestive tract; Z98.84 Bariatric surgery status
CPT/HCPCS: 99283

== ENCOUNTER → 2017-06-12 | Outpatient (CLI) | payer MEDICAID, OTHER ==
[2017-06-12 21:24] LABS: ABSOLUTE BASOPHILS # (AUTO) 0.1 10^3/uL (0.0-0.2); ABSOLUTE LYMPHOCYTES (AUTO) 2.7 10^3/uL (0.5-4.7); ABSOLUTE MONOCYTES (AUTO) 0.7 10^3/uL (0.1-1.4); ABSOLUTE NEUT (AUTO) 13.2 10^3/uL (1.7-8.2); BASOPHILS % (AUTO) 0.4 % (0-2); EOSINOPHILS % (AUTO) 0.2 % (0-6); HEMATOCRIT 31.4 % (36.0-47.0); HEMOGLOBIN 9.6 g/dL (12.0-15.5); HGB HCT DIFFERENCE -2.6; MEAN CORPUSCULAR HEMOGLOBIN 20.5 pg (27.0-33.4); MEAN CORPUSCULAR HGB CONC 30.5 g/dL (32.0-36.0); MEAN CORPUSCULAR VOLUME 67 fl (80-97); MONOCYTES % (AUTO) 4.2 % (3-13); RED BLOOD COUNT 4.68 10^6/uL (3.72-5.28); RED CELL DISTRIBUTION WIDTH 24.2 % (11.5-14.0); SEGMENTED NEUTROPHILS % (AUTO) 79.2 % (42-78); WHITE BLOOD COUNT 16.7 10^3/uL (4.0-10.5)
[2017-06-12 21:36] LABS: BLOOD UREA NITROGEN 21 mg/dL (7-20); CALCIUM 9.1 mg/dL (8.4-10.2); CARBON DIOXIDE 28 mmol/L (22-30); CHLORIDE 107 mmol/L (98-107); CREATININE RESULT 1.17 mg/dL (0.52-1.25); GLUCOSE 118 mg/dL (75-110); POTASSIUM 4.4 mmol/L (3.6-5.0); SODIUM 144.6 mmol/L (137-145)
[2017-06-12 21:37] LABS: ALANINE AMINOTRANSFERASE 65 U/L (9-52); ALBUMIN 3.5 g/dL (3.5-5.0); ALKALINE PHOSPHATASE 68 U/L (38-126); ANION GAP 10 (5-19); ASPARTATE AMINO TRANSFERASE 46 U/L (14-36); BILIRUBIN,DIRECT 0.2 mg/dL (0.0-0.4); BILIRUBIN,TOTAL 0.2 mg/dL (0.2-1.3); TOTAL PROTEIN 6.1 g/dL (6.3-8.2)
[2017-06-12 21:54] LABS: FREE T3 2.08 pg/mL (2.77-5.27)
[2017-06-12 22:02] LABS: ERYTHROCYTE SEDIMENTATION RATE 10 mm/hr (0-20)
[2017-06-12 22:05] LABS: ANISOCYTOSIS 3+; MICROCYTOSIS 2+; POIKILOCYTOSIS 2+; SCHISTOCYTES SLIGHT; TARGET CELLS 1+; TEAR DROP CELLS 2+
[2017-06-12 22:07] LABS: SMUDGE CELLS PRESENT
[2017-06-12 22:08] LABS: THYROID STIMULATING HORMONE 1.02 uIU/mL (0.47-4.68)
== END ==
LOC: LAB 20:54
PROVIDERS: ATTEND Physician Assistant
DX: K91.2 Postsurgical malabsorption, not elsewhere classified (principal); R60.0 Localized edema; Z98.84 Bariatric surgery status
CPT/HCPCS: 36415; 80053; 82607; 82746; 83036; 83540; 83550; 83880; 84439; 84443; 84481; 85025; 85652

== ENCOUNTER → 2017-06-12 | Outpatient (CLI) | payer SELFPAY ==
--- NOTE | 2017-06-12 22:50 | RADIOLOGY REPORT (SQ) ---
EXAM DESCRIPTION: CHEST PA/LAT COMPLETED DATE/TIME: 06/12/2017 10:05 pm REASON FOR STUDY: CHEST PAIN ; PERIPHERAL EDEMA COMPARISON: 05/25/2017 EXAM PARAMETERS: NUMBER OF VIEWS: two views TECHNIQUE: Digital Frontal and Lateral radiographic views of the chest acquired. RADIATION DOSE: NA LIMITATIONS: none FINDINGS: LUNGS AND PLEURA: No acute opacities, masses or pneumothorax. No pleural effusion. MEDIASTINUM AND HILAR STRUCTURES: 5 cm hiatus hernia. HEART AND VASCULAR STRUCTURES: Heart normal size. No evidence for failure. BONES: No acute findings. HARDWARE: None in the chest. OTHER: No other significant finding. IMPRESSION: New 5 cm hiatus hernia. TECHNICAL DOCUMENTATION: JOB ID: [id number] [email or web address]- All Rights Reserved
--- NOTE | 2017-06-13 00:02 | RADIOLOGY REPORT (SQ) ---
EXAM DESCRIPTION: VENOUS BILATERAL LOWER COMPLETED DATE/TIME: 06/12/2017 11:50 pm REASON FOR STUDY: EDEMA COMPARISON: None. TECHNIQUE: Dynamic and static obrien scale and color images acquired of both lower extremity venous sy stems. Selected spectral images acquired with additional compression and augmentation maneuvers. Imag es stored on PACS. LIMITATIONS: None. FINDINGS: RIGHT LEG COMMON FEMORAL AND FEMORAL: Normal phasicity, compression and augmentation. No visualized echogenic m aterial on obrien scale. No defects on color images. POPLITEAL: Normal compression and augmentation. No visualized echogenic material on obrien scale. No de fects on color images. CALF VESSELS: Normal compression and augmentation. No visualized echogenic material on obrien scale. No defects on color image. GSV AND SSV: Normal compression. No visualized echogenic material on obrien scale. No defects on color images. ANY DEEP VENOUS INSUFFICIENCY: Not evaluated. ANY EVIDENCE OF POPLITEAL CYST: No. OTHER: No other significant finding. LEFT LEG COMMON FEMORAL AND FEMORAL: Normal phasicity, compression and augmentation. No visualized echogenic m aterial on obrien scale. No defects on color images. POPLITEAL: Normal compression and augmentation. No visualized echogenic material on obrien scale. No de fects on color images. CALF VESSELS: Normal compression and augmentation. No visualized echogenic material on obrien scale. No defects on color images. GSV AND SSV: Normal compression. No visualized echogenic material on obrien scale. No defects on color images. ANY DEEP VENOUS INSUFFICIENCY: Not evaluated. ANY EVIDENCE POPLITEAL CYST: No. OTHER: No other significant finding. IMPRESSION: NO EVIDENCE DVT OR SVT IN EITHER LEG. TECHNICAL DOCUMENTATION: JOB ID: [id number] [email or web address]- All Rights Reserved
== END ==
LOC: RAD 21:24
PROVIDERS: ATTEND Physician Assistant
DX: R60.0 Localized edema (principal); M79.604 Pain in right leg; M79.605 Pain in left leg
CPT/HCPCS: 71020; 93970

== ENCOUNTER 2017-06-26 23:26 | Emergency (ER) | payer MEDICAID ==
--- NOTE | 2017-06-27 01:16 | ER Document Report ---
ED General - General Chief Complaint: Cold Symptoms Stated Complaint: CONGESTION Time Seen by Provider: 06/27/17 00:38 Mode of Arrival: Ambulatory Information source: Patient Notes: 32-year-old female presents with complaints of one-week duration of a productive cough intermittent dark green. She denies any fevers or chills denies any nausea vomiting or diarrhea patient notes no shortness of breath Patient denies any DVT or PE risk factors TRAVEL OUTSIDE OF THE [place] IN LAST 30 DAYS: No - HPI Onset: Last week Onset/Duration: Persistent Quality of pain: Achy Severity: Mild Pain Level: 1 Associated symptoms: Body/muscle aches, Productive cough Exacerbated by: Coughing Relieved by: Denies Similar symptoms previously: No Recently seen / treated by doctor: No - Related Data Allergies/Adverse Reactions: NSAIDS (Non-Steroidal Anti-Inflamma [Nsaids] Allergy (Mild, Verified 06/10/17 21 :42) prednisone [Prednisone] Allergy (Mild, Verified 06/10/17 21:42) Past Medical History - Social History Smoking Status: Never Smoker Cigarette use (# per day): No Chew tobacco use (# tins/day): No Smoking Education Provided: No Family History: Reviewed & Not Pertinent Patient has suicidal ideation: No Patient has homicidal ideation: No - Past Medical History Cardiac Medical History: Denies: Hx Atrial Fibrillation, Hx Congestive Heart Failure, Hx Heart Attack , Hx Hypercholesterolemia, Hx Hypertension Pulmonary Medical History: Reports: Hx Bronchitis, Hx Pneumonia Denies: Hx Asthma, Hx COPD Neurological Medical History: Reports: Hx Migraine, Hx Seizures - Increased frequency with stress Endocrine Medical History: Denies: Hx Diabetes Mellitus Type 1. Comment Only: Hx Diabetes Mellitus Type 2 - Gestational Diabetes Renal/ Medical History: Denies: Hx Peritoneal Dialysis GI Medical History: Reports: Hx Gastroesophageal Reflux Disease Musculoskeltal Medical History: Reports Hx Fibromyalgia Psychiatric Medical History: Reports: Hx Anxiety, Hx Attention Deficit Hyperactivity Disorder, Hx Depression, Hx Personality Disorder Past Surgical History: Reports: Hx Abdominal Surgery, Hx Cholecystectomy, Hx Gastric Bypass Surgery, Hx Oral Surgery, Hx Tonsillectomy - Immunizations Hx Diphtheria, Pertussis, Tetanus Vaccination: Yes - 2011 Review of Systems - Review of Systems Notes: REVIEW OF SYSTEMS: CONSTITUTIONAL : Denies fever, chills, or sweats. Denies recent illness. EENT: Denies eye, ear, throat, or mouth pain or symptoms. Denies nasal or sinus congestion or discharge. Denies throat, tongue, or mouth swelling or difficulty swallowing. CARDIOVASCULAR: Denies chest pain. Denies palpitations or racing or irregular heart beat. Denies ankle edema. RESPIRATORY: Admits to productive cough GASTROINTESTINAL: Denies abdominal pain or distention. Denies nausea, vomiting , or diarrhea. Denies blood in vomitus, stools, or per rectum. Denies black, tarry stools. Denies constipation. GENITOURINARY: Denies difficulty urinating, painful urination, burning, frequency, blood in urine, or discharge. FEMALE GENITOURINARY: Denies vaginal bleeding, heavy or abnormal periods, irregular periods. Denies vaginal discharge or odor. MUSCULOSKELETAL: Denies back or neck pain or stiffness. Denies joint pain or swelling. SKIN: Denies rash, lesions or sores. HEMATOLOGIC : Denies easy bruising or bleeding. LYMPHATIC: Denies swollen, enlarged glands. NEUROLOGICAL: Denies confusion or altered mental status. Denies passing out or loss of consciousness. Denies dizziness or lightheadedness. Denies headache. Denies weakness or paralysis or loss of use of either side. Denies problems with gait or speech. Denies sensory loss, numbness, or tingling. Denies seizures. PSYCHIATRIC: Denies anxiety or stress. Denies depression, suicidal ideation, or homicidal ideation. ALL OTHER SYSTEMS REVIEWED AND NEGATIVE. PHYSICAL EXAMINATION: GENERAL: Well-appearing, well-nourished and in no acute distress. HEAD: Atraumatic, normocephalic. EYES: Pupils equal round and reactive to light, extraocular movements intact, conjunctiva are normal. ENT: Nares patent, oropharynx clear without exudates. Moist mucous membranes. NECK: Normal range of motion, supple without lymphadenopathy LUNGS: Intermittent rhonchi noted at the bases bilateral HEART: Regular rate and rhythm without murmurs ABDOMEN: Soft, nontender, nondistended abdomen. No guarding, no rebound. No masses appreciated. Female : deferred Musculoskeletal: Normal range of motion, no pitting or edema. No cyanosis. NEUROLOGICAL: Cranial nerves grossly intact. Normal speech, normal gait. Normal sensory, motor exams PSYCH: Normal mood, normal affect. SKIN: Warm, Dry, normal turgor, no rashes or lesions noted. Dictation was performed using [employer] recognition software Physical Exam - Vital signs Vitals: Temp Pulse Resp BP Pulse Ox 98.2 F 113 H 18 132/82 H 95 06/26/17 23:52 06/26/17 23:52 06/26/17 23:52 06/26/17 23:52 06/26/17 23:52 Course - Re-evaluation Re-evalutation: 06/27/17 01:15 Patient looks extremely well vital signs are stable she is in no distress at this time, chest x-ray is pending 06/27/17 02:31 Chest x-ray noted no significant abnormality however given patient's symptoms I will treat as an occult pneumonia. Patient upon discharge notes nausea and will be sent with a dispensed pack of Zofran at home Patient otherwise looks well is in no distress her daughter was taking care of as well After performing a Medical Screening Examination, I estimate there is LOW risk for ACUTE CORONARY SYNDROME, RESPIRATORY FAILURE, SEPSIS OR MENINGITIS, thus I consider the discharge disposition reasonable. I have reevaluated this patient multiple times and no significant life threatening changes are noted. The patient and I have discussed the diagnosis and risks, and we agree with discharging home with close follow-up. We also discussed returning to the Emergency Department immediately if new or worsening symptoms occur. We have discussed the symptoms which are most concerning (e.g., changing or worsening pain, trouble swallowing or breathing, neck stiffness, fever) that necessitate immediate return. - Vital Signs Vital signs: Temp Pulse Resp BP Pulse Ox 98.2 F 113 H 18 132/82 H 95 06/26/17 23:52 06/26/17 23:52 06/26/17 23:52 06/26/17 23:52 06/26/17 23:52 - Diagnostic Test Radiology reviewed: Image reviewed, Reports reviewed Discharge - Discharge Clinical Impression: Pneumonia Qualifiers: Pneumonia type: due to unspecified organism Laterality: unspecified laterality Lung location: unspecified part of lung Qualified Code(s): J18.9 - Pneumonia, unspecified organism Condition: Stable Disposition: HOME, SELF-CARE Instructions: Pneumonia ([facility]) Additional Instructions: Follow up with your physician tomorrow for further care or return to the ED IMMEDIATELY if symptoms worsen or new concerns occur. If you cannot afford to follow up with your primary care physician a list of low cost clinics have been provided at the end of your discharge papers as well. Prescriptions: Azithromycin 250 mg PO ASDIR PRN #6 tablet PRN Reason:
--- NOTE | 2017-06-27 01:52 | RADIOLOGY REPORT (SQ) ---
EXAM DESCRIPTION: CHEST PA/LAT COMPLETED DATE/TIME: 06/27/2017 1:08 am REASON FOR STUDY: cough productive COMPARISON: 06/12/2017. EXAM PARAMETERS: NUMBER OF VIEWS: two views TECHNIQUE: Digital Frontal and Lateral radiographic views of the chest acquired. RADIATION DOSE: NA LIMITATIONS: none FINDINGS: LUNGS AND PLEURA: No opacities, masses or pneumothorax. No pleural effusion. Mild hyperin flation. MEDIASTINUM AND HILAR STRUCTURES: No masses or contour abnormalities. HEART AND VASCULAR STRUCTURES: Heart normal size. No evidence for failure. BONES: No acute findings. Mild upper lumbar levo convexity. HARDWARE: None in the chest. OTHER: No other significant finding. IMPRESSION: NO SIGNIFICANT RADIOGRAPHIC FINDING IN THE CHEST. TECHNICAL DOCUMENTATION: JOB ID: [id number] [employer]- All Rights Reserved
[2017-06-27] MEDS ORDERED: ONDANSETRON ODT 4 MG TAB (6 TAB/DSPK) PO PRN (02:30)
[2017-06-27 02:56] VITALS: BP 130/80
== END 2017-06-27 02:25 | disposition home or self-care (01) ==
LOC: ER 23:26
DX: J18.9 Pneumonia, unspecified organism (principal); R05 Cough; M79.1 Myalgia; Z88.8 Allergy status to other drugs, medicaments and biological substances
CPT/HCPCS: 71020; 99283

== ENCOUNTER 2017-10-18 13:05 | Emergency (ER) | payer MEDICAID ==
[2017-10-18] MEDS ORDERED: ACETAMINOPHEN 325 MG TABLET PO ONE (14:03)
[2017-10-18] MEDS ORDERED: DIPH/PERTUSS(ACELL)/TETANUS VAC/PF 0.5 ML SYR (>=10YO) IM ONE (14:03)
[2017-10-18] MEDS ORDERED: LIDOCAINE 4%/TETRACAINE 0.5%/EPI 0.18% 5 ML TOPICAL SOLN TOP ONE (14:03)
--- NOTE | 2017-10-18 14:09 | ER Document Report ---
HPI - HPI Patient complains to provider of: Facial laceration Onset: This afternoon Onset/Duration: Sudden Quality of pain: Achy Pain Level: 4 Context: Patient states she was vacuuming and accidentally hit her head on a mantle. Patient denies any loss of consciousness, nausea or vomiting. Patient with laceration to left side of forehead. Associated Symptoms: Other - Facial laceration. denies: Nausea, Vomiting Exacerbated by: Denies Relieved by: Denies Similar symptoms previously: Yes Recently seen / treated by doctor: No - ROS ROS below otherwise negative: Yes Systems Reviewed and Negative: Yes All other systems reviewed and negative - NEURO Neurology: REPORTS: Headache - GASTROINTESTINAL Gastrointestinal: DENIES: Nausea, Patient vomiting - REPRODUCTIVE Reproductive: DENIES: : - MUSCULOSKELETAL Musculoskeletal: DENIES: Back Pain, Neck Pain - DERM Skin Color: Normal Skin Problems: Laceration Past Medical History - General Information source: Patient - Social History Smoking Status: Never Smoker Frequency of alcohol use: None Drug Abuse: None Occupation: None Family History: Reviewed & Not Pertinent - Past Medical History Cardiac Medical History: Denies: Hx Atrial Fibrillation, Hx Congestive Heart Failure, Hx Heart Attack , Hx Hypercholesterolemia, Hx Hypertension Pulmonary Medical History: Reports: Hx Bronchitis, Hx Pneumonia Denies: Hx Asthma, Hx COPD Neurological Medical History: Reports: Hx Migraine, Hx Seizures - Increased frequency with stress Endocrine Medical History: Denies: Hx Diabetes Mellitus Type 1. Comment Only: Hx Diabetes Mellitus Type 2 - Gestational Diabetes Renal/ Medical History: Denies: Hx Peritoneal Dialysis GI Medical History: Reports: Hx Gastroesophageal Reflux Disease Musculoskeltal Medical History: Reports Hx Fibromyalgia Psychiatric Medical History: Reports: Hx Anxiety, Hx Attention Deficit Hyperactivity Disorder, Hx Depression, Hx Personality Disorder Past Surgical History: Reports: Hx Abdominal Surgery, Hx Cholecystectomy, Hx Gastric Bypass Surgery, Hx Oral Surgery, Hx Tonsillectomy - Immunizations Hx Diphtheria, Pertussis, Tetanus Vaccination: Yes - 2011 Vertical Provider Document - CONSTITUTIONAL Agree With Documented VS: Yes Exam Limitations: No Limitations General Appearance: WD/WN, No Apparent Distress - INFECTION CONTROL TRAVEL OUTSIDE OF THE [place] IN LAST 30 DAYS: No - HEENT HEENT: Normocephalic - NECK Neck: Normal Inspection - RESPIRATORY Respiratory: No Respiratory Distress O2 Sat by Pulse Oximetry: 100 - MUSCULOSKELETAL/EXTREMETIES Musculoskeletal/Extremeties: MAEW - NEURO Level of Consciousness: Awake, Alert, Appropriate Motor/Sensory: No Motor Deficit Notes: No focal neurologic deficit - DERM Integumentary: Warm, Dry, Laceration - 1.5 cm lac to forehead Course - Vital Signs Vital signs: Temp Pulse Resp BP Pulse Ox 98.6 F 79 20 131/72 H 100 10/18/17 13:16 10/18/17 13:16 10/18/17 13:16 10/18/17 13:16 10/18/17 13:16 Procedures - Laceration/Wound Repair Face Wound length (cm): 1.5 Wound's Depth, Shape: Linear Laceration pre-procedure: Shur-Clens applied Wound explored: Clean Wound Repaired With: Dermabond Post-procedure NV exam normal: Yes Complications: No Adult Head Front/Back picture: 1 - lac Discharge - Discharge Clinical Impression: Head injury Qualifiers: Encounter type: initial encounter Qualified Code(s): S09.90XA - Unspecified injury of head, initial encounter Facial laceration Qualifiers: Encounter type: initial encounter Qualified Code(s): S01.81XA - Laceration without foreign body of other part of head, initial encounter Condition: Stable Disposition: HOME, SELF-CARE Instructions: Acetaminophen, Facial Laceration ([facility]), Skin Adhesive Closure ( [facility]), Tetanus Immunization Given ([facility]) Additional Instructions: Return immediately for any new or worsening symptoms Followup with your primary care provider, call tomorrow to make a followup appointment Referrals: VIRIDIANA READ MD [ACTIVE STAFF] - Follow up as needed
[2017-10-18 15:22] VITALS: BP 128/71
== END 2017-10-18 15:22 | disposition home or self-care (01) ==
LOC: ER 13:05
PROC: 0HQ1XZZ Repair Face Skin, External Approach (ICD-10-PCS; principal; 2017-10-18)
DX: S09.90XA Unspecified injury of head, initial encounter (principal); S01.81XA Laceration without foreign body of other part of head, initial encounter; W22.09XA Striking against other stationary object, initial encounter; Y93.E3 Activity, vacuuming; Y92.009 Unspecified place in unspecified non-institutional (private) residence as the place of occurrence of the external cause; Z90.49 Acquired absence of other specified parts of digestive tract; Z98.84 Bariatric surgery status; Z23 Encounter for immunization
CPT/HCPCS: 99282; 90715; 12011; J3490

== ENCOUNTER 2018-02-17 23:20 | Emergency (ER) | payer MEDICAID ==
[2018-02-18] MEDS ORDERED: DIPHENHYDRAMINE HCL 50 MG/ML VIAL IV ONE (02:01)
[2018-02-18] MEDS ORDERED: PROCHLORPERAZINE EDISYLATE INJ 10 MG/2 ML VIAL IV ONE (02:01)
[2018-02-18] MEDS ORDERED: KETOROLAC TROMETHAMINE INJ/PF 30 MG/1 ML SDV IV ONE (02:01)
[2018-02-18] MEDS ORDERED: NORMAL SALINE 1000 ML 1,000 ML IV ONE (02:01)
--- NOTE | 2018-02-18 02:08 | ER Document Report ---
ED General - General Mode of Arrival: Ambulatory Information source: Patient TRAVEL OUTSIDE OF THE [place] IN LAST 30 DAYS: No - General Chief Complaint: Headache Stated Complaint: HEADACHES Time Seen by Provider: 02/18/18 01:46 Notes: Patient is a 33 year old female with ADHD, depression, fibromyalgia and a history of migraines presents to the emergency department complaining of a headache for the last several days. Patient states the pain is located on her right worship and on the left side of her head. She states she has taken Tylenol in attempt to relieve her pain but states it has not helped. Patient's associated symptoms include photosensitivity, nausea and sensitivity to noise. Patient denies any vomiting. Patient mentions that she is also having some chest tightness that has been onset for approximately 1 week. She states her chest tightness is exacerbated with deep breathing. Patient is currently taking Adderall, trintellix and using hemp oil. (DARRIAN MORE) - Related Data Allergies/Adverse Reactions: NSAIDS (Non-Steroidal Anti-Inflamma [Nsaids] Allergy (Mild, Verified 10/18/17 13 :06) prednisone [Prednisone] Allergy (Mild, Verified 10/18/17 13:06) Past Medical History - General Information source: Patient - Social History Smoking Status: Never Smoker Cigarette use (# per day): No Chew tobacco use (# tins/day): No Smoking Education Provided: No Frequency of alcohol use: None Family History: Reviewed & Not Pertinent Pulmonary Medical History: Reports: Hx Bronchitis, Hx Pneumonia Neurological Medical History: Reports: Hx Migraine, Hx Seizures - Increased frequency with stress Endocrine Medical History: Comment Only: Hx Diabetes Mellitus Type 2 - Gestational Diabetes GI Medical History: Reports: Hx Gastroesophageal Reflux Disease Musculoskeltal Medical History: Reports Hx Fibromyalgia Psychiatric Medical History: Reports: Hx Anxiety, Hx Attention Deficit Hyperactivity Disorder, Hx Depression, Hx Personality Disorder Past Surgical History: Reports: Hx Abdominal Surgery, Hx Cholecystectomy, Hx Gastric Bypass Surgery, Hx Oral Surgery, Hx Tonsillectomy - Immunizations Hx Diphtheria, Pertussis, Tetanus Vaccination: Yes - 2011 Review of Systems - Review of Systems Constitutional: No symptoms reported EENT: See HPI Cardiovascular: See HPI, Chest pain Respiratory: No symptoms reported Gastrointestinal: No symptoms reported Genitourinary: No symptoms reported Female Genitourinary: No symptoms reported Musculoskeletal: No symptoms reported Skin: No symptoms reported Hematologic/Lymphatic: No symptoms reported Neurological/Psychological: See HPI, Headaches -: Yes All other systems reviewed and negative Physical Exam - General General appearance: Appears well, Alert In distress: None - HEENT Head: Normocephalic, Atraumatic, Tenderness - Right worship tender to palpation Eyes: Normal Conjunctiva: Normal Extraocular movements intact: Yes Pupils: PERRL Neck: Other - posterior cervical muscles tender to palpation - Respiratory Respiratory status: No respiratory distress Chest status: Nontender Breath sounds: Normal Chest palpation: Normal - Cardiovascular Rhythm: Regular Heart sounds: Normal auscultation Murmur: No Friction rub: No Gallop: None auscultated - Abdominal Inspection: Morbidly Obese Distension: No distension - Back Back: Normal - Extremities General upper extremity: Normal ROM General lower extremity: Normal ROM - Neurological Neuro grossly intact: Yes Cognition: Normal Orientation: AAOx4 Sarah Coma Scale Eye Opening: Spontaneous [place] Coma Scale Verbal: Oriented Sarah Coma Scale Motor: Obeys Commands [place] Coma Scale Total: 15 Speech: Normal - Psychological Associated symptoms: Normal affect, Normal mood - Vital signs Vitals: Temp Pulse Resp BP Pulse Ox 97.8 F 86 16 136/97 H 100 02/18/18 01:18 02/18/18 01:18 02/18/18 01:18 02/18/18 01:18 02/18/18 01:18 Course - Re-evaluation Re-evalutation: 02/18/18 03:26 Patient is resting comfortably, that the headache is much better and she feels comfortable going home to sleep. (CLAUDE RVIERA) - Vital Signs Vital signs: Temp Pulse Resp BP Pulse Ox 97.8 F 86 16 136/97 H 100 02/18/18 01:18 02/18/18 01:18 02/18/18 01:18 02/18/18 01:18 02/18/18 01:18 Discharge - Discharge Clinical Impression: Headache Qualifiers: Headache type: tension-type Headache chronicity pattern: episodic headache Intractability: not intractable Qualified Code(s): G44.219 - Episodic tension- type headache, not intractable Condition: Stable Disposition: HOME, SELF-CARE Additional Instructions: Tension Headache Your problem has been diagnosed as muscle tension headache. This very common type of headache occurs because of tightness in the muscles of the head and neck. The cause may be neck or jaw joint problems, but most commonly the cause is emotional stress. The headache may last hours or days. The treatment of uncomplicated tension headaches is rest and pain medication. Often, the newer antiinflammatory pain medications are prescribed, as these also decrease the irritability of the painful tissues. Muscle relaxers , cold packs, or warm packs are sometimes helpful. Anti-anxiety medication or narcotics are sometimes needed temporarily, but are best avoided in the long run. Your doctor has evaluated your headache problem, and finds no evidence of a serious health problem as a cause for the headache. If your headache becomes more severe, or if new symptoms develop (such as fever, stiff neck, vomiting, or decreasing alertness) you should be re-examined by the physician. Follow-up with your doctor this week if not improving. Discharge warning Scribe Attestation: 02/18/18 03:27 I personally performed the services described in the documentation, reviewed and edited the documentation which was dictated to the scribe in my presence, and it accurately records my words and actions. (CLAUDE RIVERA) Scribe Documentation - Scribe Written by Caryl:: Caryl Beltran, 02/18/2018 02:14 acting as scribe for :: Josi
[2018-02-18 03:36] VITALS: BP 110/66
== END 2018-02-18 03:41 | disposition home or self-care (01) ==
LOC: ER 23:20
DX: G44.219 Episodic tension-type headache, not intractable (principal); R07.9 Chest pain, unspecified; Z90.49 Acquired absence of other specified parts of digestive tract; Z98.84 Bariatric surgery status
CPT/HCPCS: 99283; 96361; 96374; 96375; J1200; J1885; J0780; J7030

== ENCOUNTER → 2018-04-17 | Outpatient (CLI) | payer MEDICAID ==
[2018-04-17 16:10] LABS: BACTERIA (WET MOUNT) 3+ BACTERIA SEEN; EPITHELIALS (WET MOUNT) 4+ EPITHELIALS SEEN; RBCS (WET MOUNT) RARE RBCS SEEN; T.VAGINALIS (WET MOUNT) NO TRICHOMONAS SEEN; WBCS (WET MOUNT) 2+ WBCS SEEN; YEAST (WET MOUNT) NO YEAST SEEN
[2018-04-17 17:30] LABS: CHLAM PCR NOT DETECTED (NOT DETECT); GON PCR NOT DETECTED (NOT DETECT)
== END ==
LOC: LAB 15:47
PROVIDERS: ATTEND Nurse Practitioner Family
DX: N89.8 Other specified noninflammatory disorders of vagina (principal); R30.0 Dysuria
CPT/HCPCS: 87086; 87210; 87491; 87591

== ENCOUNTER 2018-05-03 14:42 | Emergency (ER) | payer MEDICAID ==
--- NOTE | 2018-05-03 14:59 | EKG REPORT ---
SEVERITY:- NORMAL ECG - SINUS RHYTHM : Confirmed by: César Joseph MD 03-May-2018 14:58:32
[2018-05-03] MEDS ORDERED: LIDOCAINE 2% VISCOUS SOLN 20 ML UDCUP PO ONE (15:48)
[2018-05-03] MEDS ORDERED: MAG HYDROX/AL HYDROX/SIMETH SUSP 30 ML UDCUP PO ONE (15:48)
[2018-05-03] MEDS ORDERED: METOCLOPRAMIDE HCL ORAL SOLN 10 MG/10 ML UDCUP PO ONE (15:48)
--- NOTE | 2018-05-03 15:48 | ER Document Report ---
ED Medical Screen (RME) - General Chief Complaint: Epigastric Pain Stated Complaint: ABDOMEN PAIN Time Seen by Provider: 05/03/18 15:33 TRAVEL OUTSIDE OF THE [place] IN LAST 30 DAYS: No - HPI Notes: 05/03/18 15:48 History of GI bypass increasing epigastric pain/substernal chest pain for the last 2 3 days. History of stomach ulcers 05/03/18 15:48 - Related Data Allergies/Adverse Reactions: NSAIDS (Non-Steroidal Anti-Inflamma [Nsaids] Allergy (Mild, Verified 05/03/18 14 :44) prednisone [Prednisone] Allergy (Mild, Verified 05/03/18 14:44) Past Medical History - Past Medical History Cardiac Medical History: Denies: Hx Atrial Fibrillation, Hx Congestive Heart Failure, Hx Heart Attack , Hx Hypercholesterolemia, Hx Hypertension Pulmonary Medical History: Reports: Hx Bronchitis, Hx Pneumonia Denies: Hx Asthma, Hx COPD Neurological Medical History: Reports: Hx Migraine, Hx Seizures - Increased frequency with stress Endocrine Medical History: Denies: Hx Diabetes Mellitus Type 1. Comment Only: Hx Diabetes Mellitus Type 2 - Gestational Diabetes Renal/ Medical History: Denies: Hx Peritoneal Dialysis GI Medical History: Reports: Hx Gastroesophageal Reflux Disease Musculoskeltal Medical History: Reports Hx Fibromyalgia Psychiatric Medical History: Reports: Hx Anxiety, Hx Attention Deficit Hyperactivity Disorder, Hx Depression, Hx Personality Disorder Past Surgical History: Reports: Hx Abdominal Surgery, Hx Cholecystectomy, Hx Gastric Bypass Surgery, Hx Oral Surgery, Hx Tonsillectomy - Immunizations Hx Diphtheria, Pertussis, Tetanus Vaccination: Yes - 2011 Review of Systems - Review of Systems Gastrointestinal: Abdominal pain Physical Exam - Vital signs Vitals: Temp Pulse Resp BP Pulse Ox 97.9 F 100 17 126/80 H 100 05/03/18 14:47 05/03/18 14:47 05/03/18 14:47 05/03/18 14:47 05/03/18 14:47 - General General appearance: Appears well In distress: None - Respiratory Respiratory status: No respiratory distress Chest status: Nontender Breath sounds: Normal Chest palpation: Normal Course - Vital Signs Vital signs: Temp Pulse Resp BP Pulse Ox 97.9 F 100 17 126/80 H 100 05/03/18 14:47 05/03/18 14:47 05/03/18 14:47 05/03/18 14:47 09/02/18 14:47 Doctor's Discharge - Discharge Referrals: DERRICK PRECIADO, CAR JOCKEY-C [Primary Care Provider] - Follow up as needed
[2018-05-03] MEDS ORDERED: PROCHLORPERAZINE EDISYLATE INJ 10 MG/2 ML VIAL IV ONE (16:07)
[2018-05-03] MEDS ORDERED: ONDANSETRON HCL INJ/PF 4 MG/2 ML SDV IV ONE (16:07)
[2018-05-03 16:26] LABS: ABSOLUTE BASOPHILS # (AUTO) 0.1 10^3/uL (0.0-0.2); ABSOLUTE EOSINOPHILS # (AUTO) 0.3 10^3/uL (0.0-0.6); ABSOLUTE LYMPHOCYTES (AUTO) 3.5 10^3/uL (0.5-4.7); ABSOLUTE MONOCYTES (AUTO) 0.7 10^3/uL (0.1-1.4); ABSOLUTE NEUT (AUTO) 4.9 10^3/uL (1.7-8.2); BASOPHILS % (AUTO) 1.1 % (0-2); EOSINOPHILS % (AUTO) 3.5 % (0-6); HEMATOCRIT 37.3 % (36.0-47.0); HEMOGLOBIN 11.7 g/dL (12.0-15.5); LYMPHOCYTES % (AUTO) 36.5 % (13-45); MEAN CORPUSCULAR HEMOGLOBIN 22.6 pg (27.0-33.4); MEAN CORPUSCULAR HGB CONC 31.2 g/dL (32.0-36.0); MEAN CORPUSCULAR VOLUME 73 fl (80-97); MONOCYTES % (AUTO) 7.4 % (3-13); PLATELET COUNT 373 10^3/uL (150-450); RED BLOOD COUNT 5.15 10^6/uL (3.72-5.28); RED CELL DISTRIBUTION WIDTH 18.5 % (11.5-14.0); SEGMENTED NEUTROPHILS % (AUTO) 51.5 % (42-78); TOTAL CELLS COUNTED % (AUTO) 100 %; WHITE BLOOD COUNT 9.5 10^3/uL (4.0-10.5)
--- NOTE | 2018-05-03 17:11 | RADIOLOGY REPORT (SQ) ---
EXAM DESCRIPTION: CHEST 2 VIEWS COMPLETED DATE/TIME: 05/03/2018 4:54 pm REASON FOR STUDY: epigastric pain/cp hx gi bypas COMPARISON: Two-view chest 02/21/2018 EXAM PARAMETERS: NUMBER OF VIEWS: two views TECHNIQUE: Digital Frontal and Lateral radiographic views of the chest acquired. RADIATION DOSE: NA LIMITATIONS: none FINDINGS: LUNGS AND PLEURA: No opacities, masses or pneumothorax. No pleural effusion. MEDIASTINUM AND HILAR STRUCTURES: No masses or contour abnormalities. HEART AND VASCULAR STRUCTURES: Heart normal size. No evidence for failure. BONES: No acute findings. HARDWARE: None in the chest. OTHER: No other significant finding. IMPRESSION: NO ACUTE RADIOGRAPHIC FINDING IN THE CHEST. TECHNICAL DOCUMENTATION: JOB ID: [id number] [employer]- All Rights Reserved Reading location - IP/workstation name: [email or web address]
[2018-05-03 18:26] LABS: ALANINE AMINOTRANSFERASE 31 U/L (9-52); ALBUMIN 4.3 g/dL (3.5-5.0); ALKALINE PHOSPHATASE 62 U/L (38-126); ANION GAP 12 (5-19); ASPARTATE AMINO TRANSFERASE 23 U/L (14-36); BILIRUBIN,DIRECT 0.3 mg/dL (0.0-0.4); BILIRUBIN,TOTAL 0.3 mg/dL (0.2-1.3); BLOOD UREA NITROGEN 13 mg/dL (7-20); CALCIUM 9.6 mg/dL (8.4-10.2); CARBON DIOXIDE 25 mmol/L (22-30); CHLORIDE 108 mmol/L (98-107); GLUCOSE 87 mg/dL (75-110); LIPASE 129.4 U/L (23-300); POTASSIUM 4.4 mmol/L (3.6-5.0); SODIUM 145.1 mmol/L (137-145); TOTAL PROTEIN 7.5 g/dL (6.3-8.2)
[2018-05-03] MEDS ORDERED: SUCRALFATE 1 GM TABLET PO ONE (19:28)
[2018-05-03] MEDS ORDERED: FAMOTIDINE 20 MG TABLET PO ONE (19:28)
[2018-05-03] MEDS ORDERED: ONDANSETRON ODT 4 MG TAB (6 TAB/ER DISP) PO PRN (19:31)
--- NOTE | 2018-05-03 19:31 | ER Document Report ---
ED General - General Chief Complaint: Epigastric Pain Stated Complaint: ABDOMEN PAIN Time Seen by Provider: 05/03/18 15:33 Notes: Patient is a 33-year-old female without chronic medical problems who presents with 2 distinct complaints. Her first complaint is pain in her "gastric pouch" . The patient reports that for the past 1 week she has had a burning, aching, constant pain to her upper abdomen worsened by eating. She notes that acidic foods seem to cause worsening of the pain. She states that this feels very similar to when she has had gastric ulcers in the past since having gastric bypass. She used to be on omeprazole 40 mg twice daily but recently transitioned to 40 mg daily within the past 1 month. She is scheduled to see her GI doctor within the next 1 week regarding this issue. Her second complaint is of 2-3 days of a left-sided throbbing, pulsating headache. She states this feels similar to migraine headaches that she has had in the past. She is notes that the pain is gotten worse and since on facet. Worsened by lights and sounds. She has tried [id number] medications with no improvement. She denies any associated fever, weakness, numbness or confusion. She denies rapid onset of headache. TRAVEL OUTSIDE OF THE [place] IN LAST 30 DAYS: No - Related Data Allergies/Adverse Reactions: NSAIDS (Non-Steroidal Anti-Inflamma [Nsaids] Allergy (Mild, Verified 05/03/18 14 :44) prednisone [Prednisone] Allergy (Mild, Verified 05/03/18 14:44) Past Medical History - General Information source: Patient - Social History Smoking Status: Never Smoker Frequency of alcohol use: None Drug Abuse: None Lives with: Spouse/Significant other Family History: Reviewed & Not Pertinent Patient has suicidal ideation: No Patient has homicidal ideation: No - Past Medical History Cardiac Medical History: Denies: Hx Atrial Fibrillation, Hx Congestive Heart Failure, Hx Heart Attack , Hx Hypercholesterolemia, Hx Hypertension Pulmonary Medical History: Reports: Hx Bronchitis, Hx Pneumonia Denies: Hx Asthma, Hx COPD Neurological Medical History: Reports: Hx Migraine, Hx Seizures - Increased frequency with stress Endocrine Medical History: Denies: Hx Diabetes Mellitus Type 1. Comment Only: Hx Diabetes Mellitus Type 2 - Gestational Diabetes Renal/ Medical History: Denies: Hx Peritoneal Dialysis GI Medical History: Reports: Hx Gastroesophageal Reflux Disease Musculoskeletal Medical History: Reports Hx Fibromyalgia Psychiatric Medical History: Reports: Hx Anxiety, Hx Attention Deficit Hyperactivity Disorder, Hx Depression, Hx Personality Disorder Past Surgical History: Reports: Hx Abdominal Surgery, Hx Cholecystectomy, Hx Gastric Bypass Surgery, Hx Oral Surgery, Hx Tonsillectomy - Immunizations Hx Diphtheria, Pertussis, Tetanus Vaccination: Yes - 2011 Review of Systems - Review of Systems Notes: Constitutional: Negative for fever. HENT: Negative for sore throat. Eyes: Negative for visual changes. Cardiovascular: Negative for chest pain. Respiratory: Negative for shortness of breath. Gastrointestinal: Positive for upper abdominal pain and nausea Genitourinary: Negative for dysuria. Musculoskeletal: Negative for back pain. Skin: Negative for rash. Neurological: Positive for headache 10 point ROS negative except as marked above and in HPI. Physical Exam - Vital signs Vitals: Temp Pulse Resp BP Pulse Ox 97.9 F 100 17 126/80 H 100 05/03/18 14:47 05/03/18 14:47 05/03/18 14:47 05/03/18 14:47 05/03/18 14:47 Interpretation: Normal Notes: PHYSICAL EXAMINATION: GENERAL: Well-appearing, well-nourished and in no acute distress. HEAD: Atraumatic, normocephalic. EYES: Pupils equal round and reactive to light, extraocular movements intact, sclera anicteric, conjunctiva are normal. ENT: nares patent, oropharynx clear without exudates. Moist mucous membranes. NECK: Normal range of motion, supple without lymphadenopathy LUNGS: Breath sounds clear to auscultation bilaterally and equal. No wheezes rales or rhonchi. HEART: Regular rate and rhythm without murmurs ABDOMEN: Soft, mild epigastric abdominal pain but no other localized abdominal tenderness on palpation, normoactive bowel sounds. No guarding, no rebound. No masses appreciated. EXTREMITIES: Normal range of motion, no pitting or edema. No cyanosis. NEUROLOGICAL: Face symmetric. Tongue protrudes midline. Extraocular motions intact. Pupils are 2 mm and equally reactive. Normal speech, normal gait. 5 out of 5 strength in both the distal and proximal upper and lower extremities bilaterally. Sensation is grossly intact throughout. Finger to nose testing normal. Pronator drift normal. PSYCH: Normal mood, normal affect. SKIN: Warm, Dry, normal turgor, no rashes or lesions noted. Course - Re-evaluation Re-evalutation: 05/03/18 19:29 Patient presents with 2 distinct complaints. 1.) Upper abdominal pain: Patient presents with epigastric abdominal pain with associated reflux symptoms most consistent with likely gastritis in the setting of a gastric bypass. Patient has only minimal epigastric abdominal tenderness on palpation but no other localized areas of abdominal pain. Patient has a remote history of a cholecystectomy removing biliary pathology from the differential. Lipase is normal. No LFT changes. Based on history and exam, I do not suspect ACS, pulmonary embolus, SBO, mesenteric ischemia, acute pancreatitis, biliary pathology, or an abdominal aortic dissection. Patient has had improvement of symptoms here with a GI cocktail. She will be started on Carafate, famotidine, and dietary recommendations have been reviewed. She is scheduled to follow-up with her GI physician in the next 5 days. 2.) Headache: Presentation of a headache that appears to be most consistent with tension versus migrainous type headache. Headache was not maximal in onset , patient has no focal neurologic deficits, no nuchal rigidity, vital signs within normal limits, no papilledema, and patient is overall well in appearance. Based on clinical history and examination I do not suspect an acute subarachnoid hemorrhage, dural venous sinus thrombosis, acute meningitis, or intercranial mass. Given my low clinical suspicion for any acute life- threatening etiology, I do not feel advanced neuro imaging is indicated at this time. Patient had complete resolution of her headache after receiving a migraine cocktail. At this time will discharge with return precautions and follow-up recommendations. Verbal discharge instructions given a the bedside and opportunity for questions given. Medication warnings reviewed. Patient is in agreement with this plan and has verbalized understanding of return precautions and the need for primary care follow-up in the next 24-72 hours. - Vital Signs Vital signs: Temp Pulse Resp BP Pulse Ox 97.6 F 82 16 109/65 97 05/03/18 19:50 05/03/18 19:50 05/03/18 19:50 05/03/18 19:50 05/03/18 19:50 - Laboratory Result Diagrams: 05/03/18 16:10 05/03/18 17:55 Laboratory results interpreted by me: 05/03/18 05/03/18 16:10 17:55 Hgb 11.7 L MCV 73 L MCH 22.6 L MCHC 31.2 L RDW 18.5 H Sodium 145.1 H Chloride 108 H Discharge - Discharge Clinical Impression: Epigastric abdominal pain Headache Qualifiers: Headache type: unspecified Headache chronicity pattern: acute headache Intractability: not intractable Qualified Code(s): R51 - Headache Gastritis Qualifiers: Gastritis type: unspecified gastritis Chronicity: acute Gastritis bleeding: presence of bleeding unspecified Qualified Code(s): K29.00 - Acute gastritis without bleeding Condition: Good Disposition: HOME, SELF-CARE Additional Instructions: You have been seen in the Emergency Department (ED) for a headache. Please use Tylenol (acetaminophen) as needed for symptoms, but only as written on the box. As we have discussed, please follow up with your primary care doctor as soon as possible regarding today's ED visit and your headache symptoms. Call your doctor or return to the ED if you have a worsening headache, sudden and severe headache, confusion, slurred speech, facial droop, weakness or numbness in any arm or leg, extreme fatigue, or other symptoms that concern you. Your symptoms appear to be most consistent with stomach or upper intestinal irritation. Please begin taking famotidine 40 mg in the morning and 40 mg at night. Please also take Carafate as prescribed. You may also take medicine such as Pepto-Bismol or Tums to assist with your pain. Please return to emergency department immediately if you have worsening of your pain, shortness of breath, vomiting, become unable to exert yourself due to pain or difficulty breathing, you pass out, or have any pain that radiates into your arms, jaw, or back. Please also return if you have any additional symptoms that are concerning to you. As we have discussed, the most important thing is lifestyle changes. You need to avoid smoking, sodas, tea, coffee, alcohol, spicy foods, and acidic foods such as citrus fruits, tomato based products, berries, and most fruit juices. Prescriptions: Famotidine 40 mg PO BID #60 tablet Sucralfate [Carafate 1 gm Tablet] 1 gm PO ACHS #120 tablet Referrals: DERRICK PRECIADO FNP-C [NURSE PRACTITIONER] - Follow up as needed
[2018-05-03 19:51] VITALS: BP 109/65
== END 2018-05-03 19:54 | disposition home or self-care (01) ==
LOC: ER 14:42
DX: K29.00 Acute gastritis without bleeding (principal); K27.9 Peptic ulcer, site unspecified, unspecified as acute or chronic, without hemorrhage or perforation; K21.9 Gastro-esophageal reflux disease without esophagitis; Z79.899 Other long term (current) drug therapy; R51 Headache; R10.13 Epigastric pain; R11.0 Nausea; Z98.84 Bariatric surgery status; Z88.8 Allergy status to other drugs, medicaments and biological substances; Z90.49 Acquired absence of other specified parts of digestive tract
CPT/HCPCS: 93005; 99284; 96374; 96375; 36415; 84702; 83690; 85025; 80053; 84484; 71046; 93010; J3490 ×5; J0780; J2405

== ENCOUNTER 2018-09-28 23:17 | Emergency (ER) | payer MEDICAID, OTHER ==
--- NOTE | 2018-09-29 01:54 | ER Document Report ---
ED GI/ - General Chief Complaint: Abdominal Pain Stated Complaint: ABDOMINAL PAIN Time Seen by Provider: 09/29/18 01:53 Primary Care Provider: PERLA OSCAR MD [Primary Care Provider] - Follow up as needed Mode of Arrival: Ambulatory Information source: Patient Notes: HISTORY OF PRESENT ILLNESS: Patient is a 33-year-old female with a past medical history of gastric bypass, chronic abdominal pain, peptic ulcer disease,, fibromyalgia, and migraines who presents with 2-3 days of migraine headaches along with 1-2 days of abdominal pain. Patient reports mild nausea but no vomiting, headache is global that is throbbing in nature and exacerbated by both loud noises and bright lights. Patient denies fevers or chills, no confusion or disorientation, no vision changes, no ataxia, no head injuries. Onset: 2-3 days ago Provocation: Bright lights/loud noises for headache, movement for abdominal pain Quality: Head is a throbbing sensation whereas abdomen is an aching pain Radiation: None Severity: Moderate Timing: Constant REVIEW OF SYSTEMS: CONSTITUTIONAL : Denies fever or chills, no sweats. Denies recent illness. EENT: Denies eye, ear, throat, or mouth pain or symptoms. Denies nasal or sinus congestion. CARDIOVASCULAR: Denies chest pain. RESPIRATORY: Denies cough, cold, or chest congestion. Denies shortness of breath, difficulty breathing, or wheezing. GASTROINTESTINAL: Positive abdominal pain. Positive nausea but no vomiting or diarrhea. Denies constipation. GENITOURINARY: Denies difficulty urinating, painful urination, burning, frequency, or blood in urine. FEMALE GENITOURINARY: Denies vaginal bleeding, abnormal or irregular periods. Last menstrual period MUSCULOSKELETAL: Denies neck or back pain or joint pain or swelling. SKIN: Denies rash or skin lesions. HEMATOLOGIC : Denies easy bruising or bleeding. LYMPHATIC: Denies swollen, enlarged glands. NEUROLOGICAL: Denies altered mental status or loss of consciousness. Positive headache. Denies weakness or paralysis or loss of use of either side. Denies problems with gait or speech. Denies sensory or motor loss. PSYCHIATRIC: Denies anxiety or stress or depression. All other systems reviewed and negative. PHYSICAL EXAMINATION: GENERAL: Well-appearing, well-nourished and in no acute distress. HEAD: Atraumatic, normocephalic. No scalp deformity, depression, or crepitance. EYES: Pupils are 3 mm and equal/round/reactive to light, extraocular movements intact, sclera anicteric, conjunctiva are normal. ENT: Nares patent bilaterally, oropharynx clear without exudates or palatal petechia. Moist mucous membranes. No tonsil hypertrophy. NECK: Normal range of motion, supple without lymphadenopathy. LUNGS: Breath sounds present, equal, and clear to auscultation bilaterally. No wheezes, rales, or rhonchi. HEART: Regular rate and rhythm without murmurs, rubs, or gallops. 2+ peripheral pulses. Normal capillary refill. ABDOMEN: Mild epigastric abdominal pain without distention. Normoactive bowel sounds. No guarding, no rebound. No masses appreciated. BACK: Normal contour, no midline tenderness. Rectal exam deferred. PELVC: Deferred. EXTREMITIES: Normal range of motion, no pitting or edema. No cyanosis. NEUROLOGICAL: No focal neurological deficits. Moves all extremities spontaneously and on command. PSYCH: Normal mood, normal affect. No suicidal thoughts/ideations. No homocidal thoughts/ideations. No hallucinations. SKIN: Warm, dry, normal turgor, no rashes or lesions noted. ASSESSMENT AND PLAN: This patient is a 33-year-old female who presents with acute on chronic abdominal pain that could be related to history of peptic ulcer disease. Headache is likely tension headache versus migraine in etiology and consistent with her known history. 1. Will obtain labs and reassess after Fioricet, Reglan, and Benadryl. 2. Will plan to reassess and likely discharge patient if improved and labs are normal. TRAVEL OUTSIDE OF THE [place] IN LAST 30 DAYS: No - Related Data Allergies/Adverse Reactions: NSAIDS (Non-Steroidal Anti-Inflamma [Nsaids] Allergy (Mild, Verified 05/03/18 14:44) prednisone [Prednisone] Allergy (Mild, Verified 05/03/18 14:44) Past Medical History - General Information source: Patient - Social History Smoking Status: Never Smoker Chew tobacco use (# tins/day): No Frequency of alcohol use: None Drug Abuse: None Lives with: Alone Family History: Reviewed & Not Pertinent Patient has suicidal ideation: No Patient has homicidal ideation: No - Past Medical History Cardiac Medical History: Reports: None Denies: Hx Atrial Fibrillation, Hx Congestive Heart Failure, Hx Heart Attack, Hx Hypercholesterolemia, Hx Hypertension Pulmonary Medical History: Reports: Hx Bronchitis, Hx Pneumonia Denies: Hx Asthma, Hx COPD EENT Medical History: Reports: None Neurological Medical History: Reports: Hx Migraine, Hx Seizures - Increased frequency with stress Endocrine Medical History: Reports: None. Denies: Hx Diabetes Mellitus Type 1. Comment Only: Hx Diabetes Mellitus Type 2 - Gestational Diabetes Renal/ Medical History: Reports: None. Denies: Hx Peritoneal Dialysis Malignancy Medical History: Reports: None GI Medical History: Reports: Hx Gastroesophageal Reflux Disease Musculoskeletal Medical History: Reports Hx Fibromyalgia Skin Medical History: Reports None Psychiatric Medical History: Reports: Hx Anxiety, Hx Attention Deficit Hyperactivity Disorder, Hx Depression, Hx Personality Disorder Traumatic Medical History: Reports: None Infectious Medical History: Reports: None Past Surgical History: Reports: Hx Abdominal Surgery, Hx Cholecystectomy, Hx Gastric Bypass Surgery, Hx Oral Surgery, Hx Tonsillectomy - Immunizations Immunizations up to date: Yes Hx Diphtheria, Pertussis, Tetanus Vaccination: Yes - 2011 Physical Exam - Vital signs Vitals: Temp Pulse Resp BP Pulse Ox 98.3 F 99 16 115/70 100 09/28/18 23:33 09/28/18 23:33 09/28/18 23:33 09/28/18 23:33 09/28/18 23:33 Course - Re-evaluation Re-evalutation: 09/29/18 06:13 The patient's headache and abdominal pain have improved and patient has requested to be discharged. She will be discharged home with return precautions and follow-up. Patient voices understanding and agreeing with the plan. - Vital Signs Vital signs: Temp Pulse Resp BP Pulse Ox 98.3 F 99 16 115/70 100 09/28/18 23:33 09/28/18 23:33 09/28/18 23:33 09/28/18 23:33 09/28/18 23:33 Discharge - Discharge Clinical Impression: Migraine headache without aura Qualifiers: Status migrainosus presence: without status migrainosus Intractability: not intractable Qualified Code(s): G43.009 - Migraine without aura, not intractable, without status migrainosus Abdominal pain Qualifiers: Abdominal location: epigastric Qualified Code(s): R10.13 - Epigastric pain Condition: Good Disposition: HOME, SELF-CARE Instructions: Abdominal Pain ([facility]), Migraine Headache ([facility]) Additional Instructions: You have been evaluated in the Emergency Department for migraine headache and abdominal pain. Please follow-up with your [primary physician] as instructed in 1-2 weeks as needed. Return to the Emergency Department if you experience worsening headaches, vision changes, difficulty walking, confusion, or any other concerning symptoms. Prescriptions: Butalbital/Aspirin/Caffeine [Nuyasd-Nytnwpj-Zujpc 50-325-40] 1 each PO Q6H PRN #30 tablet PRN Reason: For headache Omeprazole 20 mg PO DAILY #30 tablet. Ondansetron [Zofran Odt 4 mg Tablet] 4 mg PO Q8H PRN #30 tab.rapdis PRN Reason: For Nausea/Vomiting Sucralfate [Carafate 1 gm Tablet] 1 gm PO ACHS #120 tablet Referrals: PERLA OSCAR MD [Primary Care Provider] - Follow up as needed Print Language: Bahraini
[2018-09-29] MEDS ORDERED: DIPHENHYDRAMINE HCL 50 MG/ML VIAL IV ONE (02:46)
[2018-09-29] MEDS ORDERED: METOCLOPRAMIDE HCL INJ/PF 10 MG/2 ML SDV IV ONE (02:46)
[2018-09-29] MEDS ORDERED: BUTALB/ACETAMINOPHEN/CAFFEINE 1 TAB EACH PO ONE (02:46)
[2018-09-29] MEDS ORDERED: DIPHENHYDRAMINE HCL 25 MG CAPSULE PO ONE (03:13)
[2018-09-29] MEDS ORDERED: METOCLOPRAMIDE HCL 10 MG TABLET PO ONE (03:15)
[2018-09-29 06:42] VITALS: BP 100/58
== END 2018-09-29 06:49 | disposition home or self-care (01) ==
LOC: ER 23:17
DX: G43.009 Migraine without aura, not intractable, without status migrainosus (principal); R10.13 Epigastric pain; G89.29 Other chronic pain; R10.9 Unspecified abdominal pain; Z98.84 Bariatric surgery status; Z90.49 Acquired absence of other specified parts of digestive tract
CPT/HCPCS: 99283; J3490

== ENCOUNTER 2018-11-19 20:13 | Emergency (ER) | payer MEDICAID, OTHER ==
[2018-11-19] MEDS ORDERED: DIPHENHYDRAMINE HCL 50 MG/ML VIAL IV ONE (23:03)
[2018-11-19] MEDS ORDERED: NORMAL SALINE 1000 ML 1,000 ML IV ONE (23:03)
[2018-11-19] MEDS ORDERED: METOCLOPRAMIDE HCL INJ/PF 10 MG/2 ML SDV IV ONE (23:03)
[2018-11-19] MEDS ORDERED: IPRATROPIUM/ALBUTEROL 0.5-2.5 MG/3 ML AMPUL NEB ONE (23:04)
[2018-11-19] MEDS ORDERED: BUTALB/ACETAMINOPHEN/CAFFEINE 1 TAB EACH PO ONE (23:04)
--- NOTE | 2018-11-19 23:14 | ER Document Report ---
ED General - General Chief Complaint: Headache Stated Complaint: POSS BRONCHITIS Time Seen by Provider: 11/19/18 22:53 Primary Care Provider: PERLA OSCAR MD [Primary Care Provider] - Follow up as needed Mode of Arrival: Ambulatory Information source: Parent TRAVEL OUTSIDE OF THE [place] IN LAST 30 DAYS: No - HPI Patient complains to provider of: Migraine, bronchitis, low back pain Onset: Other - Past couple of days Onset/Duration: Gradual Quality of pain: Sharp, Stabbing Severity: Severe Pain Level: 4 Associated symptoms: denies: Chills, Fever Exacerbated by: Denies Relieved by: Denies Similar symptoms previously: No Recently seen / treated by doctor: No Notes: 33-year-old -[place] female migraineur here with severe migraine that started this morning. Typical left right alternating headache with sound and light exacerbating features. Some nausea without vomiting. Also during the past 24 hours is developed a cough with tightness in her chest. Also with back pain. History of fibromyalgia. No fevers or shaking chills. - Related Data Allergies/Adverse Reactions: NSAIDS (Non-Steroidal Anti-Inflamma [Nsaids] Allergy (Mild, Verified 05/03/18 14:44) prednisone [Prednisone] Allergy (Mild, Verified 05/03/18 14:44) Past Medical History - General Information source: Patient - Social History Smoking Status: Never Smoker Chew tobacco use (# tins/day): No Frequency of alcohol use: None Drug Abuse: None Family History: Reviewed & Not Pertinent Patient has suicidal ideation: No Patient has homicidal ideation: No - Past Medical History Cardiac Medical History: Denies: Hx Atrial Fibrillation, Hx Congestive Heart Failure, Hx Heart Attack, Hx Hypercholesterolemia, Hx Hypertension Pulmonary Medical History: Reports: Hx Bronchitis, Hx Pneumonia Denies: Hx Asthma, Hx COPD Neurological Medical History: Reports: Hx Migraine, Hx Seizures - Increased frequency with stress Endocrine Medical History: Reports: Hx Diabetes Mellitus Type 2 - Gestational Diabetes. Denies: Hx Diabetes Mellitus Type 1 Renal/ Medical History: Denies: Hx Peritoneal Dialysis GI Medical History: Reports: Hx Gastroesophageal Reflux Disease Musculoskeletal Medical History: Reports Hx Fibromyalgia Psychiatric Medical History: Reports: Hx Anxiety, Hx Attention Deficit Hyperactivity Disorder, Hx Depression, Hx Personality Disorder Past Surgical History: Reports: Hx Abdominal Surgery, Hx Cholecystectomy, Hx Gastric Bypass Surgery, Hx Oral Surgery, Hx Tonsillectomy - Immunizations Immunizations up to date: Yes Hx Diphtheria, Pertussis, Tetanus Vaccination: Yes - 2011 Review of Systems - Review of Systems Notes: Constitutional: No fevers. No chills. EENT: No eye redness. No eye pain. No ear pain. No sore throat. Cardiovascular: No chest pain. No palpitations. Respiratory: Positive for cough. Positive for shortness of breath. No respiratory distress. Gastrointestinal: No abdominal pain. No nausea, vomiting, or diarrhea. Genitourinary: Atraumatic. No lesions. No pain. No discharge. Musculoskeletal: Atraumatic. No swelling. No deformities. Positive for low back pain Skin: No rash or lesions. Lymphatic: No swollen lymph nodes. Neurologic: Positive for headache. No syncope. Psychiatric: No suicidal or homicidal ideation. Physical Exam - Vital signs Vitals: Temp Pulse Resp BP Pulse Ox 98.5 F 85 20 149/95 H 100 11/19/18 20:40 11/19/18 20:40 11/19/18 20:40 11/19/18 20:40 11/19/18 20:40 - Notes Notes: General: Well-developed, well-nourished. In no acute distress. Non-toxic appearing. Cardiac: Well-perfused. Regular rate and rhythm. No murmurs, rubs, or gallops. Pulmonary: No respiratory distress. No cyanosis. Bilateral lung fiels are clear to auscultation. Abdominal: Non-distended. Non-rigid. Bowels sounds are present in all four quadrants. No guarding or rebound. HEENT: Head is atraumatic. Conjunctivae not reddened. No tearing. PERRL. EOMI. Orbits atraumatic. No periorbital swelling or erythema. Oropharynx is without erythema, swelling, or exudates. Neck: Supple. No adenopathy. No meningismus. Dermatologic: Warm with good turgor. No rash. Atraumatic. Chest: Atraumatic. No chest wall tenderness to palpation. Musculoskeletal: Moves all extremities well. No range of motion deficits. no muscular or joint tenderness. No paraspinal muscle tenderness. no midline spinal tenderness or step-off. Genitourinary: Examination deferred Neurologic: No gross neurologic deficits. Psychiatric: Normal mood. Course - Re-evaluation Re-evalutation: 11/19/18 23:14 We will go ahead and try to treat the migraine with some IV fluids some right on some Benadryl and some Fioricet. Patient says that she is allergic to prednisone and NSAIDs. She does have a little bit of diminished breath sounds. Suspect a little bit of bronchospasm with a typical URI. Will order some breathing treatments for that. 11/19/18 23:58 Patient evidently refused Reglan, and Fioricet which typically work really well and migraine with IV fluid. She is requesting aN "IV version of Percocet" 11/20/18 01:14 Patient says that her breathing is better. She states she is got some dyspepsia since she got the Dilaudid shot. She is requesting a dose of Carafate here an additional pain medication by mouth. She requests prescription for Carafate to go home with. That is fine with me we will write her for the next 3 days. We will also write her a metered-dose inhaler for her bronchitis. We will send her home with a 3 Four 5 Group sixpack to go - Vital Signs Vital signs: Temp Pulse Resp BP Pulse Ox 98.5 F 85 20 149/95 H 100 11/19/18 20:40 11/19/18 20:40 11/19/18 20:40 11/19/18 20:40 11/19/18 20:40 Discharge - Discharge Clinical Impression: Dyspepsia, Bronchitis Headache Qualifiers: Headache type: unspecified Headache chronicity pattern: unspecified pattern Intractability: not intractable Qualified Code(s): R51 - Headache Condition: Good Disposition: HOME, SELF-CARE Instructions: Oral Narcotic Medication ([facility]), Headache ([facility]), Dyspepsia ([facility]) Additional Instructions: Please use the albuterol inhaler 2 puffs every 4 hours as needed for cough and shortness of breath. You have been given a pack of pain medication to use as needed for your headache. Carafate can be taken as needed. Please follow-up with your primary care doctor tomorrow Prescriptions: Sucralfate [Carafate 1 gm Tablet] 1 gm PO Q6HP PRN #12 tablet PRN Reason: Referrals: PERLA OSCAR MD [Primary Care Provider] - Follow up tomorrow
[2018-11-19] MEDS ORDERED: HYDROMORPHONE HCL INJ/PF 2 MG/ML AMPULE SUBCUT ONE (23:58)
[2018-11-19] MEDS ORDERED: ONDANSETRON 4 MG TAB.RAPDIS PO ONE (23:58)
[2018-11-20] MEDS ORDERED: SUCRALFATE 1 GM TABLET PO ONE (01:17)
[2018-11-20] MEDS ORDERED: HYDROCODONE/ACETAMINOPHEN 5-325 MG (6 TAB/ER DISP) PO PRN (01:17)
[2018-11-20] MEDS ORDERED: HYDROCODONE/ACETAMINOPHEN 5-325 MG TABLET PO ONE (01:17)
[2018-11-20 01:43] VITALS: BP 148/89
== END 2018-11-20 02:05 | disposition home or self-care (01) ==
LOC: ER 20:13
DX: R10.13 Epigastric pain (principal); J40 Bronchitis, not specified as acute or chronic; R51 Headache; M54.5 Low back pain; R11.0 Nausea; E11.9 Type 2 diabetes mellitus without complications
CPT/HCPCS: 94640; 99283; 96372; 96360; S0119; J1170; J7030; J7620

== ENCOUNTER 2019-03-31 10:06 | Emergency (ER) | payer SELFPAY ==
[2019-03-31 10:15] VITALS: BP 112/62
--- NOTE | 2019-03-31 10:26 | ER Document Report ---
ED Skin Rash/Insect Bite/Abscs - General Chief Complaint: Abscess Stated Complaint: POSSIBLE ABSCESS Time Seen by Provider: 03/31/19 10:15 Primary Care Provider: PERLA OSCAR MD [Primary Care Provider] - Follow up as needed Mode of Arrival: Ambulatory Information source: Patient TRAVEL OUTSIDE OF THE [place] IN LAST 30 DAYS: No - HPI Notes: 40-year-old female presents the ED with complaints of having small boils into her lower abdomen for the last 2 weeks has tried heat and squeezing it out for relief, states pain is 6 out of 10, take Tylenol for complete relief. Has not seen her primary care provider for this issue. Denies history of MRSA as far she knows. States only clear fluid comes out when she squeezes, patient is not using a clean razor when she shaves that area. Denies fevers, chills, chest pain,palpitations, shortness of breath, dyspnea, nausea, vomiting, diarrhea, abdominal pain, hematuria, LH, dizziness, syncope, headaches, vaginal or pelvic pain, vaginal discharge, weakness, bowel or bladder dysfunction, saddle anesthesia, numbness or tingling in bilateral upper or lower extremities equally, muscle paralysis, weakness in bilateral upper or lower extremities equally or rash. - Related Data Allergies/Adverse Reactions: NSAIDS (Non-Steroidal Anti-Inflamma [Nsaids] Allergy (Mild, Verified 03/31/19 10:07) prednisone [Prednisone] Allergy (Mild, Verified 03/31/19 10:07) Past Medical History - General Information source: Patient - Social History Smoking Status: Unknown if Ever Smoked Family History: Reviewed & Not Pertinent - Past Medical History Cardiac Medical History: Denies: Hx Atrial Fibrillation, Hx Congestive Heart Failure, Hx Heart Attack, Hx Hypercholesterolemia, Hx Hypertension Pulmonary Medical History: Reports: Hx Bronchitis, Hx Pneumonia Denies: Hx Asthma, Hx COPD Neurological Medical History: Reports: Hx Migraine, Hx Seizures - Increased frequency with stress Endocrine Medical History: Reports: Hx Diabetes Mellitus Type 2 - Gestational Diabetes. Denies: Hx Diabetes Mellitus Type 1 Renal/ Medical History: Denies: Hx Peritoneal Dialysis GI Medical History: Reports: Hx Gastroesophageal Reflux Disease Musculoskeletal Medical History: Reports Hx Fibromyalgia Psychiatric Medical History: Reports: Hx Anxiety, Hx Attention Deficit Hyperactivity Disorder, Hx Depression, Hx Personality Disorder Past Surgical History: Reports: Hx Abdominal Surgery, Hx Cholecystectomy, Hx Gastric Bypass Surgery, Hx Oral Surgery, Hx Tonsillectomy - Immunizations Immunizations up to date: Yes Hx Diphtheria, Pertussis, Tetanus Vaccination: Yes - 2011 Review of Systems - Review of Systems Constitutional: No symptoms reported EENT: No symptoms reported Cardiovascular: No symptoms reported Respiratory: No symptoms reported Gastrointestinal: No symptoms reported Genitourinary: No symptoms reported Female Genitourinary: No symptoms reported Musculoskeletal: No symptoms reported Skin: See HPI Hematologic/Lymphatic: No symptoms reported Neurological/Psychological: No symptoms reported Physical Exam - Vital signs Vitals: Temp Pulse Resp BP Pulse Ox 97.8 F 78 16 112/62 97 03/31/19 10:14 03/31/19 10:14 03/31/19 10:14 03/31/19 10:14 03/31/19 10:14 - Notes Notes: PHYSICAL EXAMINATION: GENERAL: Well-appearing, well-nourished and in no acute distress. HEAD: Atraumatic, normocephalic. EYES: Pupils equal round and reactive to light, extraocular movements intact, conjunctiva are normal. ENT: Nares patent, oropharynx clear without exudates. Moist mucous membranes. NECK: Normal range of motion, supple without lymphadenopathy LUNGS: Breath sounds clear to auscultation bilaterally and equal. No wheezes rales or rhonchi. HEART: Regular rate and rhythm without murmurs ABDOMEN: Soft, nontender, nondistended abdomen. No guarding, no rebound. No masses appreciated. Female : deferred Musculoskeletal: Normal range of motion, no pitting or edema. No cyanosis. NEUROLOGICAL: Cranial nerves grossly intact. Normal speech, normal gait. Normal sensory, motor exams PSYCH: Normal mood, normal affect. SKIN: Warm, Dry, normal turgor, no rashes or lesions noted. noted along waist line, 3 non-fluctuate area of erythema approx [id number], no surrounding erythema, induration or warmth to touch. no surrounding lymphadenopathy. Course - Re-evaluation Re-evalutation: 03/31/19 10:32 34-year-old female afebrile, vitals stable. Nurse's notes reviewed. Area appears to be folliculitis/cellulitis, will start her on oral antibiotics, she requested Diflucan for antibiotic induced yeast infection that she gets every time she takes antibiotics, advised to apply heat 20 minutes on 20 minutes off several times a day, return to the ED for reevaluation or her primary care provider within the next 48 hours for reevaluation, sooner if her symptoms become worse. Patient presents with symptoms most consistent with an acute cellulitis. Vitals within normal limits. Patient does not meet sepsis criteria is overall very well in appearance.. Patient will be started on coverage for both staph and strep. At this time will discharge with return precautions and follow-up recommendations. Verbal discharge instructions given a the bedside and opportunity for questions given. Medication warnings reviewed. Patient is in agreement with this plan and has verbalized understanding of return precautions and the need for primary care follow-up in the next 24-72 hours. - Vital Signs Vital signs: Temp Pulse Resp BP Pulse Ox 97.8 F 78 16 112/62 97 03/31/19 10:14 03/31/19 10:14 03/31/19 10:14 03/31/19 10:14 03/31/19 10:14 Discharge - Discharge Clinical Impression: Cellulitis, Folliculitis Condition: Stable Disposition: HOME, SELF-CARE Instructions: Cellulitis ([facility]), Clindamycin ([facility]) Additional Instructions: The rash is likely due to infection of your skin. You need to take the antibiotics as prescribed. Do not stop even if the rash goes away until you have completed all the antibiotics. The area of redness was traced out here in the emergency department with a marking pen. You need to return to emergency department if the redness spreads outside of this area by more than 2 cm in any direction. You should also return if you develop fevers with temperature greater than 101, persistent vomiting, worsening pain, or have any other symptoms that are concerning to you. Return immediately for any new or worsening symptoms. Follow up with primary care provider, call tomorrow to make followup appointment. Prescriptions: Clindamycin HCl 300 mg PO Q6H #28 capsule Fluconazole [Diflucan] 150 mg PO ONCE PRN #2 tablet PRN Reason: Lidocaine/Menthol [Lidall 4%-1% Patch] 1 each TP TIDP PRN #20 adh..patch PRN Reason: Forms: Return to Work Referrals: PERLA OSCAR MD [Primary Care Provider] - Follow up as needed
== END 2019-03-31 10:30 | disposition home or self-care (01) ==
LOC: ER 10:06
DX: L73.9 Follicular disorder, unspecified (principal); L03.90 Cellulitis, unspecified; Z88.8 Allergy status to other drugs, medicaments and biological substances
CPT/HCPCS: 99283

== ENCOUNTER 2019-05-12 13:01 | Emergency (ER) | payer SELFPAY ==
[2019-05-12] MEDS ORDERED: NORMAL SALINE 1000 ML 1,000 ML IV ONE (15:11)
--- NOTE | 2019-05-12 15:13 | ER Document Report ---
ED Medical Screen (RME) - General Chief Complaint: Syncope Stated Complaint: POSSIBLE RASH Time Seen by Provider: 05/12/19 14:51 Mode of Arrival: Ambulatory Information source: Patient Notes: Patient presents complaining of feeling lightheaded and dizzy today followed by a syncopal episode thereafter. Patient states that she did have chest pain yesterday although denies any chest pain today. Patient denies any shortness of breath. Patient does complain of headache pain as well. Patient also reports a facial rash for the past month. I have greeted and performed a rapid initial assessment of this patient. A comprehensive ED assessment and evaluation of the patient, analysis of test results and completion of the medical decision making process will be conducted by additional ED providers. TRAVEL OUTSIDE OF THE [place] IN LAST 30 DAYS: No - Related Data Allergies/Adverse Reactions: NSAIDS (Non-Steroidal Anti-Inflamma [Nsaids] Allergy (Mild, Verified 05/12/19 13:02) prednisone [Prednisone] Allergy (Mild, Verified 05/12/19 13:02) Past Medical History - Past Medical History Cardiac Medical History: Denies: Hx Atrial Fibrillation, Hx Congestive Heart Failure, Hx Heart Attack, Hx Hypercholesterolemia, Hx Hypertension Pulmonary Medical History: Reports: Hx Bronchitis, Hx Pneumonia Denies: Hx Asthma, Hx COPD Neurological Medical History: Reports: Hx Migraine, Hx Seizures - Increased nisha quency with stress Endocrine Medical History: Reports: Hx Diabetes Mellitus Type 2 - Gestational Diabetes. Denies: Hx Diabetes Mellitus Type 1 Renal/ Medical History: Denies: Hx Peritoneal Dialysis GI Medical History: Reports: Hx Gastroesophageal Reflux Disease Musculoskeltal Medical History: Reports Hx Fibromyalgia Psychiatric Medical History: Reports: Hx Anxiety, Hx Attention Deficit Hyperactivity Disorder, Hx Depression, Hx Personality Disorder Past Surgical History: Reports: Hx Abdominal Surgery, Hx Cholecystectomy, Hx Gastric Bypass Surgery, Hx Oral Surgery, Hx Tonsillectomy - Immunizations Immunizations up to date: Yes Hx Diphtheria, Pertussis, Tetanus Vaccination: Yes - 2011 Physical Exam - Vital signs Vitals: Temp Pulse Resp BP Pulse Ox 97.9 F 79 18 132/83 H 100 05/12/19 13:06 05/12/19 13:06 05/12/19 13:06 05/12/19 13:06 05/12/19 13:06 - Cardiovascular Rhythm: Regular Heart sounds: S1 appreciated, S2 appreciated - Neurological Neuro grossly intact: Yes Cognition: Normal [place] Coma Scale Eye Opening: Spontaneous [place] Coma Scale Verbal: Oriented Sarah Coma Scale Motor: Obeys Commands Sarah Coma Scale Total: 15 Course - Vital Signs Vital signs: Temp Pulse Resp BP Pulse Ox 97.9 F 79 18 132/83 H 100 05/12/19 13:06 05/12/19 13:06 05/12/19 13:06 05/12/19 13:06 05/12/19 13:06
--- NOTE | 2019-05-12 15:41 | RADIOLOGY REPORT (SQ) ---
EXAM DESCRIPTION: CHEST 2 VIEWS COMPLETED DATE/TIME: 05/12/2019 3:33 pm REASON FOR STUDY: syncope COMPARISON: PA and lateral views of the chest from 05/03/2018. EXAM PARAMETERS: NUMBER OF VIEWS: two views TECHNIQUE: Digital Frontal and Lateral radiographic views of the chest acquired. RADIATION DOSE: NA LIMITATIONS: none FINDINGS: LUNGS AND PLEURA: No consolidation, pleural effusion or pneumothorax. MEDIASTINUM AND HILAR STRUCTURES: No mediastinal or hilar contour abnormality. HEART AND VASCULAR STRUCTURES: The cardiac silhouette and pulmonary vasculature are within normal bravo its. BONES: No acute findings. HARDWARE: None in the chest. OTHER: No other finding. IMPRESSION: No acute cardiopulmonary process. TECHNICAL DOCUMENTATION: JOB ID: [id number] [employer]- All Rights Reserved Reading location - IP/workstation name: [email or web address]
[2019-05-12] MEDS: PROCHLORPERAZINE EDISYLATE INJ 10 MG/2 ML VIAL IV ONE ×2 (16:49→17:25)
[2019-05-12] MEDS: DIPHENHYDRAMINE HCL 50 MG/ML VIAL IV ONE ×2 (16:49→17:26)
[2019-05-12 17:13] LABS: ABSOLUTE BASOPHILS # (AUTO) 0.1 10^3/uL (0.0-0.2); ABSOLUTE EOSINOPHILS # (AUTO) 0.2 10^3/uL (0.0-0.6); ABSOLUTE MONOCYTES (AUTO) 0.5 10^3/uL (0.1-1.4); ABSOLUTE NEUT (AUTO) 4.9 10^3/uL (1.7-8.2); BASOPHILS % (AUTO) 0.7 % (0-2); EOSINOPHILS % (AUTO) 2.6 % (0-6); HEMATOCRIT 36.3 % (36.0-47.0); HEMOGLOBIN 11.3 g/dL (12.0-15.5); LYMPHOCYTES % (AUTO) 34.8 % (13-45); MEAN CORPUSCULAR HEMOGLOBIN 22.8 pg (27.0-33.4); MEAN CORPUSCULAR HGB CONC 31.2 g/dL (32.0-36.0); MEAN CORPUSCULAR VOLUME 73 fl (80-97); MONOCYTES % (AUTO) 5.5 % (3-13); PLATELET COUNT 316 10^3/uL (150-450); RED BLOOD COUNT 4.98 10^6/uL (3.72-5.28); RED CELL DISTRIBUTION WIDTH 17.2 % (11.5-14.0); SEGMENTED NEUTROPHILS % (AUTO) 56.4 % (42-78); TOTAL CELLS COUNTED % (AUTO) 100 %; WHITE BLOOD COUNT 8.7 10^3/uL (4.0-10.5)
[2019-05-12 17:39] LABS: ALBUMIN 4.2 g/dL (3.5-5.0); ALKALINE PHOSPHATASE 58 U/L (38-126); ANION GAP 7 (5-19); ASPARTATE AMINO TRANSFERASE 28 U/L (14-36); BILIRUBIN,DIRECT 0.1 mg/dL (0.0-0.4); BILIRUBIN,TOTAL 0.2 mg/dL (0.2-1.3); BLOOD UREA NITROGEN 14 mg/dL (7-20); CALCIUM 9.4 mg/dL (8.4-10.2); CARBON DIOXIDE 27 mmol/L (22-30); CHLORIDE 104 mmol/L (98-107); CREATINE KINASE 213 U/L (30-135); GLUCOSE 89 mg/dL (75-110); POTASSIUM 4.2 mmol/L (3.6-5.0); TOTAL PROTEIN 6.8 g/dL (6.3-8.2)
[2019-05-12 18:28] LABS: APPEARANCE,URINE CLEAR; BILIRUBIN,URINE NEGATIVE (NEGATIVE); COLOR,URINE YELLOW; GLUCOSE, URINE NEGATIVE (NEGATIVE); KETONES,URINE NEGATIVE (NEGATIVE); LEUKOCYTE ESTERASE,URINE NEGATIVE (NEGATIVE); NITRITE,URINE NEGATIVE (NEGATIVE); PROTEIN,URINE NEGATIVE (NEGATIVE); URINE SPECIFIC GRAVITY 1.016; UROBILINOGEN,URINE NEGATIVE mg/dL (<2.0)
[2019-05-12 19:23] LABS: ALCOHOL < 10 mg/dL (NONE DETECTED)
--- NOTE | 2019-05-12 20:34 | ER Document Report ---
HPI - HPI Patient complains to provider of: syncope, rash Time Seen by Provider: 05/12/19 14:51 Onset: This morning Onset/Duration: Sudden, Better, Gone Quality of pain: Achy Severity: Mild Pain Level: 2 Context: 34 yr old female pt, with the listed pmh, here for mult complaints to include: intermittent episodes of syncope for along time with one happening many hours ago this morning about 12 hrs ago, that was witnessed by pt's . pts states she bent down to get something off the floor after she had been sitting/lying down for a while and then got up rather quickly and then had a brief what appeared to be <5 seconds of a pass out spell upon which he was able to catch her and not let her fall or hit her head. he was able to sit her down and then lay her down. she had no one sided weakness, facial droop, or slurred speech. states felt usual of her prior chronic syncope spells when she gets up too quick. she isn't on blood thinners and only takes adderal and xanax prn. she has a hx of POTS earlier in life as well and isn't on any meds. no other changes in meds or diabetes. no recent illness, abx or steroids. no recent head trauma. no ams, intoxication, or . she hasn't taken anything for her sx. she states he then also several hours after she passed out while lying down she had one of her typical tonic clonic seizures that only lasted a minute or two or less and she was sleepy and post ictal afterwards-also witnessed by . all of this is typical of her usual seizures per pt and at bedside. she complains of a mild post ictal stratton that is just like her usual post ictal stratton's and nothing different. she was otherwise acting her baseline pre and post syncope and seizure and has done her usual adl's without complication otherwise today. some nausea. no vomiting. no other changes in neurologic, dizziness, photophobia, tinnitus, vision changes, numbness, tingling, weakness, saddle anesthesia, incontinence, tongue or lip biting, broken teeth, epistaxis, neck pain/stiffness, fevers, uti/uri sx, vag complaints, other rash, cp, sob, ripping or tearing sensation, palpitations, abd pain, back pain, pain anywhere else, or any other sx. states she usually gets a prodrome of feeling flushed than a little sweaty and nauseous and her vision gets black and grainy and she can usually hold onto something and has time to get her self down to the floor or a stable spot so she doesn't fall out. she has no other preceding syncope. no cp. no palpitations. she also complains of a rash mostly to her forehead for the last several weeks, was told it was fungal at an and to use otc antifungal creams. no rash anywhere else. states itchy, no drainage, no pain, utd on shots. hasn't put anything else on it or otherwise sought care until now. hasn't responded to otc antifungal cream per pt. hasn't f/u with pcp/derm/neuro. she also hasn't been taking anything for her seizures in about a year and usual has one every other week. states she was on keppra before and that was the only med her prior [place] of state neuro ever put her on but she still had the same frequency of seizures and characterizations of seizures while on it and has since moved and changed insurance and not f/u. she states the usual stratton cocktails do not work for her and the only thing that works for her stratton's is tylenol with codeine. states she was previous on pain management for chronic fibromyalgia and back pain however hasn't reestablished with them either and has been off narcs for many months. denies withdrawal sx. no other fall or trauma or associated sx. she has had no reoccurrence of sx and hasn't taken anything for her sx. she denies change in caffeine intake. tells me she has had head ct and head mri out of state that were neg in the last few months-year. however i do not have access to these records for review. no other complaints at this time. she is able to walk. Pt denies any prior personal cardiac history. denies any family history of sudden or cardiac dz at a young age. no hx of mi, cva, tia, or cad. No prior history of blood clots. No recent long distance travel/immobilization, recent surgery, exogenous estrogen use, hemoptysis, history of cancer, or calf pain/swelling. No prior history of arrhythmias. Relieved by: Remaining still Similar symptoms previously: Yes Recently seen / treated by doctor: No - ROS Systems Reviewed and Negative: Yes All other systems reviewed and negative - to include 10 systems unless mentioned in the hpi - REPRODUCTIVE Reproductive: DENIES: : - DERM Skin Color: Normal Past Medical History - General Information source: Patient, Relative - - Social History Smoking Status: Never Smoker Frequency of alcohol use: None Drug Abuse: None Lives with: Family Family History: Reviewed & Not Pertinent Patient has suicidal ideation: No Patient has homicidal ideation: No - Past Medical History Cardiac Medical History: Denies: Hx Atrial Fibrillation, Hx Congestive Heart Failure, Hx Coronary Artery Disease, Hx DVT, Hx Heart Attack, Hx Hypercholesterolemia, Hx Hypertension, Hx Pulmonary Embolism Pulmonary Medical History: Reports: Hx Bronchitis, Hx Pneumonia Denies: Hx Asthma, Hx COPD, Hx Sleep Apnea Neurological Medical History: Reports: Hx Migraine, Hx Seizures - Increased frequency with stress-tonic clonic-unchanged. noncompliant w/meds. Denies: Hx Cerebrovascular Accident Endocrine Medical History: Reports: Hx Diabetes Mellitus Type 2 - Gestational Diabetes. Denies: Hx Diabetes Mellitus Type 1, Hx Hyperthyroidism, Hx Hypothyroidism Renal/ Medical History: Denies: Hx Hemodialysis, Hx Kidney Stones, Hx Peritoneal Dialysis Malignancy Medical History: Reports: None GI Medical History: Reports: Hx Gastroesophageal Reflux Disease Musculoskeletal Medical History: Reports Hx Arthritis, Reports Hx Fibromyalgia, Reports Other - chronic pain-ddd, previously on pain managment Psychiatric Medical History: Reports: Hx Anxiety, Hx Attention Deficit Hyperactivity Disorder, Hx Depression, Hx Personality Disorder, Other - insomnia Traumatic Medical History: Denies: Hx Spleen Laceration/Rupture Infectious Medical History: Denies: Hx C-Diff, Hx Hepatitis, Hx HIV Past Surgical History: Reports: Hx Abdominal Surgery, Hx Cholecystectomy, Hx Gastric Bypass Surgery, Hx Oral Surgery, Hx Tonsillectomy - Immunizations Immunizations up to date: Yes Hx Diphtheria, Pertussis, Tetanus Vaccination: Yes - 2011 Vertical Provider Document - CONSTITUTIONAL Agree With Documented VS: Yes Exam Limitations: No Limitations General Appearance: No Apparent Distress Notes: GENERAL_APPEARANCE: well_nourished, alert, cooperative, no obvious discomfort. Pleasant, obese middle aged female, smiling, speaking in full sentences, in no sign of pain or resp distress, easily sitting up. asleep with covers over her and lights and tv off most of her stay but easily arousible and sits up and appropriate. and child at bedside VITALS: reviewed, see vital signs table. HEAD: otherwise normocephalic and atraumatic, no raccoon eyes, no mcadams signs. no swelling or ttp. EARS: canals_clear_bilat, TMs_clear, no_discharge_from_ears. no hemotympanum EYES: EOMI without pain, conjunctiva_clear. PERRL, eyelids wnl. no drainage. no ttp or crepitation of the orbits. no sign of orbital/periorbital cellulitis. no hyphema. no photophobia. no nystagmus. no subconjunctival hemorrhage MOUTH: no_lacerations inside_mouth. no broken teeth. no tmj clicking or ttp. pharynx wnl. tongue protrudes midline. no drooling, tripoding, voice change, or stridor, no thrush or oral lesions. no tongue or lip swelling. NOSE: no drainage or epistaxis NECK: no_swelling\tenderness on the neck. no midline bony tenderness. no step offs or deformities. full rom. full strength. no meningeal signs. no sign of central cord syndrome. HEART: normal_rate, normal_rhythm, LUNGS: ctab. no chest wall ttp. no overlying skin changes. no flail chest or crepitation. ABDOMEN: normal_BS, soft, no_abd_tenderness, no rebound, guarding, distension, or peritoneal signs. no cva ttp. no overlying skin changes. BACK: no midline bony tenderness. no step offs or deformities RECTAL: deferred, however, no sign of loss of bowel or bladder or soiling of clothing. EXTREMITIES: strength 5/5 in all_extremities, good pulses all_extremities, no_abrasions\lacerations in the extremities, no_swelling\tenderness in the extremities. full rom. normal gait. 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 brisk cap refill. no shorte yoli or rotation of the limbs or other signs of deformities unless otherwise noted. neg aidan sign. neg cason squeeze. no foot drop. SKIN: warm, dry, good_color. no other grossly visible overlying skin changes or signs of trauma unless otherwise noted. NEURO: reflexes symmetric throughout, cranial nerves 2 - 12 intact, motor_intact, sensory_intact. cerebellar function intact GLASCOW_COMA_SCORE: (adult) - eyes_open_spontaneously_4, verbal_converses_and_oriented_5, motor_obeys_commands_6, [place]_coma_total_15, MENTAL_STATUS: speech_clear, oriented_X_3, responds_appropriately to que stions. - INFECTION CONTROL TRAVEL OUTSIDE OF THE [place] IN LAST 30 DAYS: No Course - Re-evaluation Re-evalutation: 05/12/19 21:35 Pt here for mult complaints to include: intermittent episodes of syncope for along time with one happening today that was witnessed via pt's . pts states she bent down to get something off the floor after she had been sitting/lying down for a while and got up quickly and then had a brief what appeared to be <5 seconds of a pass out spell upon which he was able to catch her and not let her fall. he states she then also several hrs after she sync opized she had a seizure while lying down and it was one of her typical tonic clonic seizures that only lasted a minute or two or less and she was sleepy and post ictal afterwards. she had otherwise been acting her baseline since her syncope and prior to it and also before and after her seizure once her brief post ictal phase resolved. all of this is typical of her usual seizures per pt and at bedside. this started this am around 12 hrs ago. she complains of a mild post ictal stratton that is just like her usual post ictal stratton's and nothing different. some nausea. no vomiting. no other changes in neurologic. she also complains of a rash mostly to her forehead for the last several weeks, was told it was fungal. hasn't responded to otc antifungal cream per pt. hasn't f/u with pcp/derm/neuro. she also hasn't been taking anything for her seizures in about a year and usually has one of her typical ones every other week. states she was on keppra before and that was the only med they ever put her on but she still had the same frequency of seizures and characterizations of seizures while on it and has since moved and changed insurance and not f/u. labs unremarkable other than a chronic mild anemia. ekg unremarkable per dr hendrickson. she wasn't orthostatic here. cxr neg per rad and reviewed by myself. she refused the benadryl and compazine for her stratton and requests tylenol with codeine stating thats the only thing that helps her. states she was previous on pain management for chronic fibromyalgia and back pain however hasn't reestablished with them either and has been off narcs for many months. denies withdrawal sx. she was given tylenol and fluids here with improvement of her sx. she has been asleep but easily arousible and neurononfocal every time i walk by the room and after multiple reexams. she also didn't eat or drink much today. advised her to push fluids. eat and drink at regular intervals.. she isn't on any blood thinners. she is tolerating po and also eating a meal tray in the room. risk factors low for sah. she has no meningeal signs. no signs of cauda equina, spinal cord involvement, or central cord syndrome. advised she can cont to use the otc antifungal cream to her face. she has had no recurrence of seizures or sx otherwise and feels back to baseline for the rest of the day and since being here. she had no incontinence or tongue biting. she has no prior hx of cad or cardiac hx otherwise. denies intoxication. denies . risk factors low for this to be cardiogenic syncope and sounds like vasovagal syncope. pt has had a head ct and head mri she tells me in the last year and doesn't want another one. filipino head ct syncope risk score low also for this pt along with heart score which is 1. she never had any cp and denies any sx at dc and is requesting to go home. advised to f/u with pcp/derm/neuro in 1-2 days. return for any worsening symptoms. vss. well appearing. satting well on ra. neurononfocal. pt understands and agrees to plan. On reexam, pt improved with tx listed. remained stable. nontoxic. well appearing. pain controlled. tolerating po. requesting to go home. neurononfocal. case discussed with ER Attending, Dr. hendrickson, who directed and agrees with plan of care and advised no further workup indicated at this time and pt is stable for dc home with close f/u with pcp/specialist. 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 she advised she can cont her otc antifungal cream. she also advised against restarting anti-convulsants and against giving narcotic pain meds for a stratton in fear of causing worsening rebound narcotic stratton, and to have pt f/u closely with neuro for this which i informed pt of. Documentation achieved through voice recording which may lead to some occa sional accidental typographical errors. Extensive efforts have been made to proof read documentation to make sure these are the least as possible. Category Date Time Status EKG Documentation STAT Care 05/12/19 15:11 Completed Orthostatic Vital Sign (ED) NOW Care 05/12/19 21:11 Active Saline Lock (ED) NOW Care 05/12/19 15:09 Active CHEST 2 VIEWS [RAD] Stat Exams 05/12/19 15:10 Completed ADD ON [ADD ON TESTING BLD IN LAB] [CHEM] Stat Lab 05/12/19 16:59 Completed ALCOHOL [CHEM] Stat Lab 05/12/19 16:59 Completed CBC WITH DIFF [HEME] Stat Lab 05/12/19 16:59 Completed COMPREHENSIVE METABOLIC PANEL [CHEM] Stat Lab 05/12/19 16:59 Completed CREATINE KINASE [CHEM] Stat Lab 05/12/19 16:59 Completed HCG-QUAL, SERUM [CHEM] Stat Lab 05/12/19 16:59 Completed MAGNESIUM [CHEM] Stat Lab 05/12/19 16:59 Completed TROPONIN I [CHEM] Stat Lab 05/12/19 16:59 Completed URINALYSIS [URIN] Stat Lab 05/12/19 16:15 Completed Diphenhydramine HCl [Benadryl Inj 50 mg/1 ml Vial] Med 05/12/19 15:11 Discontinued 25 mg IV NOW ONE Normal Saline 1000 ml [NaCl 0.9% 1000 ml IV Soln] 1,000 Med 05/12/19 15:11 Discontinued ml IV BOLUS Prochlorperazine Edisylate [Compazine Inj 10 mg/2 ml Med 05/12/19 15:11 Discontinued Vial] 5 mg IV NOW ONE EKG ER ONLY [ER] Stat Oth 05/12/19 15:09 Active 05/15/19 23:50 - Vital Signs Vital signs: Temp Pulse Resp BP Pulse Ox 97.9 F 79 18 132/83 H 100 05/12/19 13:06 05/12/19 13:06 05/12/19 13:06 05/12/19 13:06 05/12/19 13:06 Temp Pulse Pulse Pulse Pulse Pulse Resp 05/12/19 21:32 73 72 82 73 15 05/12/19 20:46 97.4 F 77 15 05/12/19 13:06 97.9 F 79 18 BP BP BP BP BP Pulse Ox 05/12/19 21:32 113/72 112/75 113/72 118/82 05/12/19 20:46 121/74 100 05/12/19 13:06 132/83 H 100 - Laboratory Result Diagrams: 05/12/19 16:59 05/12/19 16:59 Laboratory results interpreted by me: 05/12/19 05/12/19 16:59 16:59 Hgb 11.3 L MCV 73 L MCH 22.8 L MCHC 31.2 L RDW 17.2 H Creatine Kinase 213 H 05/12/19 21:35 Labs- Entire Visit 05/12/19 05/12/19 05/12/19 16:15 16:59 16:59 WBC 8.7 RBC 4.98 Hgb 11.3 L Hct 36.3 MCV 73 L MCH 22.8 L MCHC 31.2 L RDW 17.2 H Plt Count 316 Lymph % (Auto) 34.8 [place] % (Auto) 5.5 Eos % (Auto) 2.6 Baso % (Auto) 0.7 Absolute Neuts (auto) 4.9 Absolute Lymphs (auto) 3.0 Absolute Monos (auto) 0.5 Absolute Eos (auto) 0.2 Absolute Basos (auto) 0.1 Seg Neutrophils % 56.4 Sodium 138.1 Potassium 4.2 Chloride 104 Carbon Dioxide 27 Anion Gap 7 BUN 14 Creatinine 1.00 Est GFR ( Amer) > 60 Est GFR (MDRD) Non-Af > 60 Glucose 89 Calcium 9.4 Magnesium Total Bilirubin 0.2 Direct Bilirubin 0.1 Neonat Total Bilirubin Not Reportable Neonat Direct Bilirubin Not Reportable Neonat Indirect Bili Not Reportable AST 28 ALT 23 Alkaline Phosphatase 58 Creatine Kinase 213 H Troponin I Total Protein 6.8 Albumin 4.2 Serum HCG, Qual Urine Color YELLOW Urine Appearance CLEAR Urine pH 7.0 Ur Specific [place] 1.016 Urine Protein NEGATIVE Urine Glucose (UA) NEGATIVE Urine Ketones NEGATIVE Urine Blood NEGATIVE Urine Nitrite NEGATIVE Urine Bilirubin NEGATIVE Urine Urobilinogen NEGATIVE Ur Leukocyte Esterase NEGATIVE Urine WBC (Auto) 0 Urine RBC (Auto) 1 Urine Bacteria (Auto) TRACE Squamous Epi Cells Auto 1 Urine Mucus (Auto) RARE Urine Ascorbic Acid NEGATIVE Serum Alcohol 05/12/19 05/12/19 05/12/19 16:59 16:59 16:59 WBC RBC Hgb Hct MCV MCH MCHC RDW Plt Count Lymph % (Auto) [place] % (Auto) Eos % (Auto) Baso % (Auto) Absolute Neuts (auto) Absolute Lymphs (auto) Absolute Monos (auto) Absolute Eos (auto) Absolute Basos (auto) Seg Neutrophils % Sodium Potassium Chloride Carbon Dioxide Anion Gap BUN Creatinine Est GFR ( Amer) Est GFR (MDRD) Non-Af Glucose Calcium Magnesium 2.1 Total Bilirubin Direct Bilirubin Neonat Total Bilirubin Neonat Direct Bilirubin Neonat Indirect Bili AST ALT Alkaline Phosphatase Creatine Kinase Troponin I < 0.012 Total Protein Albumin Serum HCG, Qual NEGATIVE Urine Color Urine Appearance Urine pH Ur Specific [place] Urine Protein Urine Glucose (UA) Urine Ketones Urine Blood Urine Nitrite Urine Bilirubin Urine Urobilinogen Ur Leukocyte Esterase Urine WBC (Auto) Urine RBC (Auto) Urine Bacteria (Auto) Squamous Epi Cells Auto Urine Mucus (Auto) Urine Ascorbic Acid Serum Alcohol < 10 - Diagnostic Test Radiology reviewed: Image reviewed, Reports reviewed Radiology results interpreted by me: 05/12/19 21:35 Chest X-Ray 05/12/19 15:10 IMPRESSION: No acute cardiopulmonary process. - EKG Interpretation by Nv EKG shows normal: Sinus rhythm Rate: Normal Rhythm: NSR - 78 bpm, no stemi, unchanged from prior, reviewed by dr hendrickson. When compared to previous EKG there are: No significant change Discharge - Discharge Clinical Impression: Pityriasis alba, Seizure, Noncompliance with medication regimen, Chronic anemia Syncope Qualifiers: Syncope type: unspecified Qualified Code(s): R55 - Syncope and collapse Condition: Good Disposition: HOME, SELF-CARE Instructions: Seizure, Known Epileptic ([facility]), Syncopal Episode ([facility]) Additional Instructions: Follow-up with PCP/derm/neuro in 1 to 2 days. Return for any worsening symptoms. tylenol as needed for any pain or fever if not allergic. no driving, operating machinery, swimming alone, etc with a history of seizures. Forms: Return to Work Referrals: TIMOTEO BREAUX DO [ACTIVE STAFF] - Follow up tomorrow RAGHU HERNANDEZ MD [NO LOCAL MD] - Follow up tomorrow
[2019-05-12] MEDS ORDERED: ACETAMINOPHEN 325 MG TABLET PO ONE (21:54)
[2019-05-12 22:07] VITALS: BP 118/82
--- NOTE | 2019-05-12 22:20 | EKG REPORT ---
SEVERITY:- NORMAL ECG - SINUS RHYTHM : Confirmed by: Antonette Arango MD 12-May-2019 22:18:58
== END 2019-05-12 22:07 | disposition home or self-care (01) ==
LOC: ER 13:01
DX: R55 Syncope and collapse (principal); L30.5 Pityriasis alba; R56.9 Unspecified convulsions; Z91.14 Patient's other noncompliance with medication regimen; D64.89 Other specified anemias; Z79.899 Other long term (current) drug therapy
CPT/HCPCS: 93005; 99284; 96360; 36415; 80307; 82550; 83735; 84703; 85025; 80053; 81001; 84484; 71046; 93010; J7030; J0780; J1200

== ENCOUNTER 2019-06-12 19:56 | Emergency (ER) | payer SELFPAY ==
--- NOTE | 2019-06-12 20:09 | ER Document Report ---
ED Medical Screen (RME) - General Chief Complaint: Rash Stated Complaint: RASH TRAVEL OUTSIDE OF THE [place] IN LAST 30 DAYS: No - HPI Notes: 06/12/19 20:07 Patient is a 34-year-old female with a history of fibromyalgia, diet-controlled diabetes, obesity who presents complaining of painful rash underneath her lowest abdominal fold in her pelvic area that is been present for 2 days. Patient states that she has noticed a little discharge from the area with a burning sensation and occasional itch. No fever. I have treated and performed a rapid initial assessment of this patient. A comprehensive ED assessment and evaluation of the patient, analysis of test results and completion of medical decision making process will be conducted by additional ED providers. PHYSICAL EXAMINATION: Patient will be placed in gown and on a bed to further evaluate. GENERAL: Well-appearing, well-nourished and in no acute distress. A&Ox4. Answers questions appropriately. - Related Data Allergies/Adverse Reactions: NSAIDS (Non-Steroidal Anti-Inflamma [Nsaids] Allergy (Mild, Verified 05/12/19 13:02) prednisone [Prednisone] Allergy (Mild, Verified 05/12/19 13:02) Past Medical History - Past Medical History Cardiac Medical History: Denies: Hx Atrial Fibrillation, Hx Congestive Heart Failure, Hx Coronary Artery Disease, Hx DVT, Hx Heart Attack, Hx Hypercholesterolemia, Hx Hypertension, Hx Pulmonary Embolism Pulmonary Medical History: Reports: Hx Bronchitis, Hx Pneumonia Denies: Hx Asthma, Hx COPD, Hx Sleep Apnea Neurological Medical History: Reports: Hx Migraine, Hx Seizures - Increased frequency with stress-tonic clonic-unchanged. noncompliant w/meds. Denies: Hx Cerebrovascular Accident Endocrine Medical History: Reports: Hx Diabetes Mellitus Type 2 - Gestational Diabetes. Denies: Hx Diabetes Mellitus Type 1, Hx Hyperthyroidism, Hx Hypothyroidism Renal/ Medical History: Denies: Hx Hemodialysis, Hx Kidney Stones, Hx Peritoneal Dialysis GI Medical History: Reports: Hx Gastroesophageal Reflux Disease. Denies: Hx Hepatitis Musculoskeltal Medical History: Reports Hx Arthritis, Reports Hx Fibromyalgia Psychiatric Medical History: Reports: Hx Anxiety, Hx Attention Deficit Hyperactivity Disorder, Hx Depression, Hx Personality Disorder Traumatic Medical History: Denies: Hx Spleen Laceration/Rupture Infectious Medical History: Denies: Hx C-Diff, Hx Hepatitis, Hx HIV Past Surgical History: Reports: Hx Abdominal Surgery, Hx Cholecystectomy, Hx Gastric Bypass Surgery, Hx Oral Surgery, Hx Tonsillectomy - Immunizations Immunizations up to date: Yes Hx Diphtheria, Pertussis, Tetanus Vaccination: Yes - 2011 Physical Exam - Vital signs Vitals: Temp Pulse Resp BP Pulse Ox 97 F L 88 16 128/86 H 99 06/12/19 20:05 06/12/19 20:05 06/12/19 20:05 06/12/19 20:05 06/12/19 20:05 Course - Vital Signs Vital signs: Temp Pulse Resp BP Pulse Ox 97 F L 88 16 128/86 H 99 06/12/19 20:05 06/12/19 20:05 06/12/19 20:05 06/12/19 20:05 06/12/19 20:05
--- NOTE | 2019-06-12 23:04 | ER Document Report ---
ED Skin Rash/Insect Bite/Abscs - General Chief Complaint: Rash Stated Complaint: RASH Time Seen by Provider: 06/12/19 20:52 Mode of Arrival: Ambulatory Information source: Patient TRAVEL OUTSIDE OF THE [place] IN LAST 30 DAYS: No - HPI Patient complains to provider of: Skin rash/lesion Onset: Other - Approximately 1 week Onset/Duration: Gradual Quality of pain: Burning Severity: Moderate Skin Character: Macules Skin Temperature: Warm Quality of rash: Itchy, Painful Identify cause: No Exacerbated by: Denies Relieved by: Denies Similar symptoms previously: No Recently seen / treated by doctor: No Notes: This is a 34-year-old female who presents complaining of a painful rash in the region of her mons pubis, right inguinal crease and her superior gluteal crease. Patient states that the rash is pruritic as well as being painful. Patient denies any vaginal or labial rash or pain. Patient denies fever, chills, other rash, neck pain, photophobia, new medications. Patient denies exposure to new detergents, perfumes, new clothing, or other items that may be responsible for contact dermatitis. - Related Data Allergies/Adverse Reactions: NSAIDS (Non-Steroidal Anti-Inflamma [Nsaids] Allergy (Mild, Verified 05/12/19 13:02) prednisone [Prednisone] Allergy (Mild, Verified 05/12/19 13:02) Past Medical History - General Information source: Patient - Social History Smoking Status: Never Smoker Family History: Reviewed & Not Pertinent Patient has suicidal ideation: No Patient has homicidal ideation: No - Past Medical History Cardiac Medical History: Denies: Hx Atrial Fibrillation, Hx Congestive Heart Failure, Hx Coronary Artery Disease, Hx DVT, Hx Heart Attack, Hx Hypercholesterolemia, Hx Hypertension, Hx Pulmonary Embolism Pulmonary Medical History: Reports: Hx Bronchitis, Hx Pneumonia Denies: Hx Asthma, Hx COPD, Hx Sleep Apnea Neurological Medical History: Reports: Hx Migraine, Hx Seizures - Increased frequency with stress-tonic clonic-unchanged. noncompliant w/meds. Denies: Hx Cerebrovascular Accident Endocrine Medical History: Reports: Hx Diabetes Mellitus Type 2 - Gestational Diabetes. Denies: Hx Diabetes Mellitus Type 1, Hx Hyperthyroidism, Hx Hypothyroidism Renal/ Medical History: Denies: Hx Hemodialysis, Hx Kidney Stones, Hx P eritoneal Dialysis GI Medical History: Reports: Hx Gastroesophageal Reflux Disease. Denies: Hx Hepatitis Musculoskeletal Medical History: Reports Hx Arthritis, Reports Hx Fibromyalgia Skin Medical History: Reports None Psychiatric Medical History: Reports: Hx Anxiety, Hx Attention Deficit Hyperacti vity Disorder, Hx Depression, Hx Personality Disorder Traumatic Medical History: Denies: Hx Spleen Laceration/Rupture Infectious Medical History: Denies: Hx C-Diff, Hx Hepatitis, Hx HIV Past Surgical History: Reports: Hx Abdominal Surgery, Hx Cholecystectomy, Hx Gastric Bypass Surgery, Hx Oral Surgery, Hx Tonsillectomy - Immunizations Immunizations up to date: Yes Hx Diphtheria, Pertussis, Tetanus Vaccination: Yes - 2011 Review of Systems - Review of Systems Constitutional: No symptoms reported EENT: No symptoms reported Cardiovascular: No symptoms reported Respiratory: No symptoms reported Gastrointestinal: No symptoms reported Genitourinary: No symptoms reported Female Genitourinary: No symptoms reported Musculoskeletal: No symptoms reported Skin: See HPI Hematologic/Lymphatic: No symptoms reported Neurological/Psychological: No symptoms reported Physical Exam - Vital signs Vitals: Temp Pulse Resp BP Pulse Ox 97 F L 88 16 128/86 H 99 06/12/19 20:05 06/12/19 20:05 06/12/19 20:05 06/12/19 20:05 06/12/19 20:05 - General General appearance: Appears well, Alert - HEENT Head: Normocephalic, Atraumatic Eyes: Normal Pupils: PERRL - Respiratory Respiratory status: No respiratory distress - Abdominal Inspection: Normal Distension: No distension Tenderness: Nontender - Extremities General upper extremity: Normal inspection General lower extremity: Normal inspection - Neurological Neuro grossly intact: Yes Cognition: Normal Orientation: AAOx4 Sarah Coma Scale Eye Opening: Spontaneous Sherrill Coma Scale Verbal: Oriented Sherrill Coma Scale Motor: Obeys Commands Sherrill Coma Scale Total: 15 - Psychological Associated symptoms: Normal affect, Normal mood - Skin Skin Temperature: Warm Skin Moisture: Dry Notes: Patient has a area of rash that begins underneath the crease of her pannus and involves basically all of her mons pubis up into the inguinal crease on both sides. The rash is macular in appearance with some areas of skin breakdown along the skin crease lines there are no vesicles. There are small satellite lesions. Patient has a similar area in the region of her superior gluteal crease when her gluteal folds are , the same type of rash is easily visualized. Both rashes have the location and appearance consistent with a candidal skin infection. Course - Re-evaluation Re-evalutation: 06/12/19 23:13 Physical exam findings and diagnosis was explained to patient and patient's significant other. Patient and patient's significant other expressed understanding of diagnosis, treatment plan, follow-up, emergency signs and symptoms as explained to them. Assessment: 34-year-old female presents with painful macular rash in the region of her mons pubis and superior gluteal crease. Rash appearance is consistent with a candidal skin rash/infection. Plan: Nystatin cream, apply twice daily to area of rash until rash resolves and then continue treatment 3 days beyond rash resolution. Dispense 100 g tube. No refills. Patient and patient's significant other were instructed to return to the emergency department anytime if symptoms worsen despite using treatment as prescribed. All the patient's que stions were answered prior to discharge. - Vital Signs Vital signs: Temp Pulse Resp BP Pulse Ox 97.9 F 90 18 129/73 H 100 06/12/19 21:55 06/12/19 21:55 06/12/19 21:55 06/12/19 21:55 06/12/19 21:55 Discharge - Discharge Clinical Impression: Kristie infection Clinical Impression: (Ruled Out): Kristie infection of mouth Condition: Good Disposition: HOME, SELF-CARE Additional Instructions: Skin Yeast Infection You have evidence of a skin infection -- called "kristie." A yeast infection often causes itching and discharge. While not dangerous, it can be very unpleasant. A yeast infection often follows the use of powerful antibiotics. It is more likely to occur in diabetics. The treatment now is an antifungal cream that may be used for a few days. You do not need to avoid sexual intercourse. Recurrences are common. You can make a recurrence less likely by wearing cotton underwear and avoiding tight clothing. For mild recurrences, you can try [id number] creams or suppositories that are made specifically for yeast. If the symptoms do not resolve, you should follow up for re-examination. Return to ER at any time if symptoms worsen despite using medication as prescribed. Prescriptions: Nystatin [Mycostatin Cream 15 gm] 1 applic TP BID #100 gm
[2019-06-12 23:12] VITALS: BP 126/70
== END 2019-06-12 23:13 | disposition home or self-care (01) ==
LOC: ER 19:56
DX: B37.9 Candidiasis, unspecified (principal); R21 Rash and other nonspecific skin eruption; E11.9 Type 2 diabetes mellitus without complications

== ENCOUNTER 2019-06-24 18:28 | Emergency (ER) | payer SELFPAY ==
--- NOTE | 2019-06-24 20:42 | ER Document Report ---
ED Medical Screen (RME) - General Chief Complaint: Eye Pain Stated Complaint: EYE PAIN Time Seen by Provider: 06/24/19 20:40 Mode of Arrival: Ambulatory Information source: Patient Notes: 34-year-old female presented to ED for complaint of left eye pain for 2 days. She states she possibly scratched her eye or got something in her eye. The pain does shoot up into her head. She states she wears contacts and took them out. She also has a perineal rash that she would like to be examined. Patient is alert oriented respirations regular and unlabored speaking in full sentences walks with even steady gait. Is here with her 3 children but she states that her is on the way. I have greeted and performed a rapid initial assessment of this patient. A comprehensive ED assessment and evaluation of the patient, analysis of test results and completion of medical decision making process will be conducted by an additional ED providers. TRAVEL OUTSIDE OF THE [place] IN LAST 30 DAYS: No - Related Data Allergies/Adverse Reactions: NSAIDS (Non-Steroidal Anti-Inflamma [Nsaids] Allergy (Mild, Verified 05/12/19 13:02) prednisone [Prednisone] Allergy (Mild, Verified 05/12/19 13:02) Past Medical History - Past Medical History Cardiac Medical History: Denies: Hx Atrial Fibrillation, Hx Congestive Heart Failure, Hx Coronary Artery Disease, Hx DVT, Hx Heart Attack, Hx Hypercholesterolemia, Hx Hypertension, Hx Pulmonary Embolism Pulmonary Medical History: Reports: Hx Bronchitis, Hx Pneumonia Denies: Hx Asthma, Hx COPD, Hx Sleep Apnea Neurological Medical History: Reports: Hx Migraine, Hx Seizures - Increased frequency with stress-tonic clonic-unchanged. noncompliant w/meds. Denies: Hx Cerebrovascular Accident Endocrine Medical History: Reports: Hx Diabetes Mellitus Type 2 - Gestational Diabetes. Denies: Hx Diabetes Mellitus Type 1, Hx Hyperthyroidism, Hx Hypothyroidism Renal/ Medical History: Denies: Hx Hemodialysis, Hx Kidney Stones, Hx Peritoneal Dialysis GI Medical History: Reports: Hx Gastroesophageal Reflux Disease. Denies: Hx Hepatitis Musculoskeltal Medical History: Reports Hx Arthritis, Reports Hx Fibromyalgia Psychiatric Medical History: Reports: Hx Anxiety, Hx Attention Deficit Hyperactivity Disorder, Hx Depression, Hx Personality Disorder Traumatic Medical History: Denies: Hx Spleen Laceration/Rupture Infectious Medical History: Denies: Hx C-Diff, Hx Hepatitis, Hx HIV Past Surgical History: Reports: Hx Abdominal Surgery, Hx Cholecystectomy, Hx Gastric Bypass Surgery, Hx Oral Surgery, Hx Tonsillectomy - Immunizations Immunizations up to date: Yes Hx Diphtheria, Pertussis, Tetanus Vaccination: Yes - 2011 Physical Exam - Vital signs Vitals: Temp Pulse Resp BP Pulse Ox 98.2 F 86 18 128/86 H 100 06/24/19 18:58 06/24/19 18:58 06/24/19 18:58 06/24/19 18:58 06/24/19 18:58 Course - Vital Signs Vital signs: Temp Pulse Resp BP Pulse Ox 98.2 F 86 18 128/86 H 100 06/24/19 18:58 06/24/19 18:58 06/24/19 18:58 06/24/19 18:58 06/24/19 18:58
[2019-06-25] MEDS ORDERED: TETRACAINE HCL 0.5% OPH SOLN 4 ML OU ONE (01:49)
--- NOTE | 2019-06-25 02:06 | ER Document Report ---
ED General - General Chief Complaint: Eye Pain Stated Complaint: EYE PAIN Time Seen by Provider: 06/24/19 20:40 Primary Care Provider: YONY WEBB JR, MD [Primary Care Provider] - Follow up as needed Mode of Arrival: Ambulatory TRAVEL OUTSIDE OF THE [place] IN LAST 30 DAYS: No - Related Data Allergies/Adverse Reactions: NSAIDS (Non-Steroidal Anti-Inflamma [Nsaids] Allergy (Mild, Verified 05/12/19 13:02) prednisone [Prednisone] Allergy (Mild, Verified 05/12/19 13:02) Past Medical History - General Information source: Patient - Social History Smoking Status: Never Smoker Chew tobacco use (# tins/day): No Frequency of alcohol use: None Drug Abuse: None Family History: Reviewed & Not Pertinent Patient has suicidal ideation: No Patient has homicidal ideation: No - Past Medical History Cardiac Medical History: Denies: Hx Atrial Fibrillation, Hx Congestive Heart Failure, Hx Coronary Artery Disease, Hx DVT, Hx Heart Attack, Hx Hypercholesterolemia, Hx Hypertension, Hx Pulmonary Embolism Pulmonary Medical History: Reports: Hx Bronchitis, Hx Pneumonia Denies: Hx Asthma, Hx COPD, Hx Sleep Apnea Neurological Medical History: Reports: Hx Migraine, Hx Seizures - Increased frequency with stress-tonic clonic-unchanged. noncompliant w/meds. Denies: Hx Cerebrovascular Accident Endocrine Medical History: Reports: Hx Diabetes Mellitus Type 2 - Gestational Diabetes. Denies: Hx Diabetes Mellitus Type 1, Hx Hyperthyroidism, Hx Hypothyroidism Renal/ Medical History: Denies: Hx Hemodialysis, Hx Kidney Stones, Hx Peritoneal Dialysis GI Medical History: Reports: Hx Gastroesophageal Reflux Disease. Denies: Hx Hepatitis Musculoskeletal Medical History: Reports Hx Arthritis, Reports Hx Fibromyalgia Psychiatric Medical History: Reports: Hx Anxiety, Hx Attention Deficit Hyperactivity Disorder, Hx Depression, Hx Personality Disorder Traumatic Medical History: Denies: Hx Spleen Laceration/Rupture Infectious Medical History: Denies: Hx C-Diff, Hx Hepatitis, Hx HIV Past Surgical History: Reports: Hx Abdominal Surgery - gastric bypass, Hx Cholecystectomy, Hx Gastric Bypass Surgery, Hx Oral Surgery - wisdom teeth, Hx Tonsillectomy - Immunizations Immunizations up to date: Yes Hx Diphtheria, Pertussis, Tetanus Vaccination: Yes - 2011 Physical Exam - Vital signs Vitals: Temp Pulse Resp BP Pulse Ox 98.2 F 86 18 128/86 H 100 06/24/19 18:58 06/24/19 18:58 06/24/19 18:58 06/24/19 18:58 06/24/19 18:58 - Notes Notes: Patient presents emergency department complaining of left eye pain is been gone for the past 3 days. She says she has daily wear contacts. Take it at night but had left them in for several days. She had no difficulty with movement and contacts. The pain started after she took the contact out. No pain in the right eye. Denies she is in no fevers or URI symptoms. Any redness or discharge. But says her vision has been a little blurry. Feels like there may be something in it. However she has not been working around metal or wood or outside on a windy day. Patient also indicates she is had some pain in the vaginal area for the past 3 days. She had a little bit of vaginal discharge and spotting associated with this. Last period was early June but she had some spotting earlier in the week. She says she has had this occasionally due to her control pills. She says some crampy lower abdominal pain with this but no nausea or vomiting chest pain or shortness of breath Past medical history is significant for seizures she has no diabetes or hypertension. She is on no meds for this Review of systems all systems reviewed with acutely negative except as in HPI PHYSICAL EXAMINATION: Vital signs noted note reviewed from triage visual acuity was noted with her glasses on GENERAL: Well-appearing, well-nourished and in no acute distress. HEAD: Atraumatic, normocephalic. EYES: Pupils equal round and reactive to light, extraocular movements intact, no nystagmus or photophobia obvious foreign body sclera anicteric, conjunctiva minimally irritated on the left ENT: nares patent, oropharynx clear without exudates. Moist mucous membranes. NECK: Normal range of motion, supple without lymphadenopathy LUNGS: Breath sounds clear to auscultation bilaterally and equal. No wheezes rales or rhonchi. HEART: Regular rate and rhythm without murmurs ABDOMEN: Soft, nontender, normoactive bowel sounds. No guarding, no rebound. No masses appreciated. EXTREMITIES: Nontender no edema NEUROLOGICAL: No focal neurological deficits. Moves all extremities spontaneously and on command. PSYCH: Normal mood, normal affect. SKIN: Warm, Dry, normal turgor, no rashes or lesions noted. Back reveals no bony tenderness Pelvic exam was performed with nursing staff present. Slightly excoriated area left inguinal area just below the opening to the vaginal vault is tender to touch there are no vesicles present external genitalia normal. She does have a brownish discharge in the vault and from the eyes. Slightly friable. Cultures were obtained. The uterus is normal size shape and consistency. There is some mild cervical motion tenderness no adnexal tenderness - HEENT Visual acuity- Right eye: 20/25 Visual acuity- Left eye: 20/30 Visual acuity- Both eyes: 20/25 Corrective lenses worn: Yes Course - Re-evaluation Re-evalutation: 06/25/19 05:15 ED patient is remained stable she was given Rocephin and doxycycline Medical decision making patient presents with eye pain after leaving contacts then. She has a more circular corneal abrasion she was given Rocephin here which is sort of treatment but she will be given a prescription for drops also. Advised not to wear contacts and to follow-up with eye doctor in 1 to 2 days or return here for recheck she probably has component of PID so she will be treated with doxycycline she was advised that we will expect them to 3 days and she should follow-up with her family doctor for the results of this. Also advised that the excoriated lesion could represent herpes is difficult to tell and with symptoms going on for several days at this point there is no indication for antiviral - Vital Signs Vital signs: Temp Pulse Resp BP Pulse Ox 98 F 78 16 116/61 100 06/25/19 03:51 06/25/19 03:51 06/25/19 03:51 06/25/19 03:51 06/25/19 03:51 - Laboratory Laboratory results interpreted by me: 06/25/19 02:22 Urine Urobilinogen 2.0 H Urine Ascorbic Acid 20 H With prep was back at 505 Discharge - Discharge Clinical Impression: PID (acute pelvic inflammatory disease), Possible herpes Corneal abrasion due to contact lens Qualifiers: Laterality: left Qualified Code(s): H18.822 - Corneal disorder due to contact lens, left eye Condition: Good Disposition: HOME, SELF-CARE Additional Instructions: Herpes Simplex You have been diagnosed as having a herpes virus infection. The herpes ("cold sore") virus usually infects the areas around the mouth. However, it can cause infection on any skin surface. It's particularly dangerous if infection occurs in the eye. On the initial infection, herpes blisters erupt over a large area. There is usually fever and aching. This infection takes about 14 days to resolve. After the initial infection, herpes sores can erupt on small areas (usually the lips), then heal in about a week. Sunburn, fever, local irritation, or even emotions can provoke a "fever blister" attack of herpes. Initial herpes infections can be treated with medication if severe. Subsequent attacks are usually given only local care to reduce symptoms; however, the physician may decide to prescribe anti-viral medication if your case warrants it. Call the doctor if you are worsening in any way.Pelvic Inflammatory Disease You have been diagnosed as having pelvic inflammatory disease (PID). This is an infection of the fallopian tubes and surrounding areas of the pelvis. Symptoms are usually pelvic pain and discharge. The infection can do permanent damage to the tubes and ovaries. It should be taken very seriously. Treatment is antibiotics, which may be given by vein or by injection if the infection seems serious. It's important that you receive all recommended medication. Condoms help prevent spread of this infection to others. Because this infection is spread sexually, it's important that your sexual partner be checked before resuming sexual relations. If a culture shows gonorrhea or chlamydia organisms, the law requires that this be reported to the health department. Call the doctor or return at once if you develop increasing fever, rash, severe pelvic pain, vaginal bleeding (other than your period), or problems with your bladder or bowels. Follow-up with your family doctor in 2 to 3 days if not better otherwise in 10 days to check your culture result Use protection for sex until you have finished antibiotics Do not wear your contacts until you follow-up with your eye doctor Please review the discharge instructions We need to have your eyes rechecked again in 1 to 2 days that with your eye doctor or here Please review the discharge instructions return to the ED if you get worse Prescriptions: Doxycycline Hyclate 100 mg PO BID #14 capsule Tobramycin Sulfate [Tobrex 0.3% Oph Soln 5 ml] 2 drop BTH_EYE 6XD 5 Days #1 bottle Forms: Elevated Blood Pressure Referrals: YONY WEBB JR, MD [Primary Care Provider] - Follow up as needed
[2019-06-25 02:20] LABS: BACTERIA (WET MOUNT) 4+ BACTERIA SEEN; EPITHELIALS (WET MOUNT) 3+ EPITHELIALS SEEN; RBCS (WET MOUNT) FEW RBCS SEEN; T.VAGINALIS (WET MOUNT) NO TRICHOMONAS SEEN; WBCS (WET MOUNT) 2+ WBCS SEEN; YEAST (WET MOUNT) NO YEAST SEEN
[2019-06-25 02:39] LABS: APPEARANCE,URINE CLEAR; BILIRUBIN,URINE NEGATIVE (NEGATIVE); COLOR,URINE YELLOW; GLUCOSE, URINE NEGATIVE (NEGATIVE); KETONES,URINE NEGATIVE (NEGATIVE); LEUKOCYTE ESTERASE,URINE NEGATIVE (NEGATIVE); NITRITE,URINE NEGATIVE (NEGATIVE); PROTEIN,URINE NEGATIVE (NEGATIVE); URINE SPECIFIC GRAVITY 1.026
[2019-06-25 04:49] LABS: CHLAM PCR NOT DETECTED (NOT DETECT)
[2019-06-25 05:51] VITALS: BP 119/67
== END 2019-06-25 05:51 | disposition home or self-care (01) ==
LOC: ER 18:28
DX: N73.0 Acute parametritis and pelvic cellulitis (principal); H18.822 Corneal disorder due to contact lens, left eye; H57.12 Ocular pain, left eye; Z90.49 Acquired absence of other specified parts of digestive tract; Z98.84 Bariatric surgery status
CPT/HCPCS: 81001; 81025; 87210; 87491; 87591; 99283

== ENCOUNTER 2019-11-08 11:05 | Emergency (ER) | payer SELFPAY ==
--- NOTE | 2019-11-08 11:23 | ER Document Report ---
ED Respiratory Problem - General Chief Complaint: Congestion Stated Complaint: CONGESTION Time Seen by Provider: 11/08/19 11:17 Primary Care Provider: YONY WEBB JR, MD [NO LOCAL MD] - Follow up in 3-5 days Mode of Arrival: Ambulatory Information source: Patient Notes: 34-year-old female presented to ED for complaint of cough cold congestion sore throat since . She is alert oriented respirations regular nonlabored speaking in full sentences. She is nontoxic in appearance. TRAVEL OUTSIDE OF THE [place] IN LAST 30 DAYS: No - HPI Patient complains to provider of: Cough Onset: Other - Duration: Continuous Initiating Event: URI Quality of pain: Achy Severity: Moderate Pain Level: 3 Associated symptoms: Congestion, Cough, PND, Runny nose, Sinus pain/pressure, Sore Throat Similar symptoms previously: Yes Recently seen / treated by doctor: No - Related Data Allergies/Adverse Reactions: NSAIDS (Non-Steroidal Anti-Inflamma [Nsaids] Allergy (Mild, Verified 11/08/19 11:23) prednisone [Prednisone] Allergy (Mild, Verified 11/08/19 11:23) Past Medical History - General Information source: Patient - Social History Smoking Status: Former Smoker Frequency of alcohol use: None Drug Abuse: None Occupation: [employer] Lives with: Family Family History: Reviewed & Not Pertinent Patient has suicidal ideation: No Patient has homicidal ideation: No - Past Medical History Cardiac Medical History: Reports: None Pulmonary Medical History: Reports: Hx Bronchitis, Hx Pneumonia Neurological Medical History: Reports: Hx Migraine, Hx Seizures - Increased frequency with stress-tonic clonic-unchanged. noncompliant w/meds Endocrine Medical History: Reports: Hx Diabetes Mellitus Type 2 - Gestational Diabetes, Hx Hypothyroidism Renal/ Medical History: Reports: Hx Ovarian Cysts. Denies: Hx Ectopic Pregn juan, Hx Kidney Stones Malignancy Medical History: Reports: None GI Medical History: Reports: Hx Gastroesophageal Reflux Disease, Hx Hiatal Hernia, Hx Irritable Bowel, Hx Endoscopy Musculoskeletal Medical History: Reports Hx Arthritis, Reports Hx Fibromyalgia Skin Medical History: Reports Hx Eczema Psychiatric Medical History: Reports: Hx Anxiety, Hx Attention Deficit Hyperactivity Disorder, Hx Depression, Hx Personality Disorder, Hx Post Traumatic Stress Disorder Traumatic Medical History: Reports: None Infectious Medical History: Reports: None Past Surgical History: Reports: Hx Cholecystectomy, Hx Gastric Bypass Surgery, Hx Oral Surgery - wisdom teeth, Hx Tonsillectomy - Immunizations Immunizations up to date: Yes Hx Diphtheria, Pertussis, Tetanus Vaccination: Yes - 2011 Review of Systems - Review of Systems Constitutional: Recent illness EENT: Nose congestion, Nose discharge, Sinus pressure, Sinus discharge, Throat pain Cardiovascular: Chest pain Respiratory: Cough, Sputum Gastrointestinal: No symptoms reported Genitourinary: No symptoms reported Female Genitourinary: No symptoms reported Musculoskeletal: No symptoms reported Skin: No symptoms reported Hematologic/Lymphatic: No symptoms reported Neurological/Psychological: No symptoms reported -: Yes All other systems reviewed and negative Physical Exam - Vital signs Vitals: Temp Pulse Resp BP Pulse Ox 98.3 F 99 16 144/67 H 99 11/08/19 11:12 11/08/19 11:12 11/08/19 11:12 11/08/19 11:12 11/08/19 11:12 Interpretation: Normal - General General appearance: Appears well, Alert - HEENT Head: Normocephalic, Atraumatic Eyes: Normal Pupils: PERRL Ears: Normal External canal: Normal Tympanic membrane: Normal Sinus: Normal Nasal: Purulent discharge, Swelling Mouth/Lips: Normal Mucous membranes: Normal Pharynx: Post nasal drainage Neck: Normal - Respiratory Respiratory status: No respiratory distress Chest status: Nontender Breath sounds: Productive cough. No: Rales, Rhonchi, Stridor, Wheezing Chest palpation: Normal - Cardiovascular Rhythm: Regular Heart sounds: Normal auscultation Murmur: No - Abdominal Inspection: Normal Distension: No distension Bowel sounds: Normal Tenderness: Nontender Organomegaly: No organomegaly - Back Back: Normal, Nontender - Extremities General upper extremity: Normal inspection, Nontender, Normal color, Normal ROM, Normal temperature General lower extremity: Normal inspection, Nontender, Normal color, Normal ROM, Normal temperature, Normal weight bearing. No: Zahida's sign - Neurological Neuro grossly intact: Yes Cognition: Normal Orientation: AAOx4 Byron Coma Scale Eye Opening: Spontaneous Sarah Coma Scale Verbal: Oriented Sarah Coma Scale Motor: Obeys Commands Byron Coma Scale Total: 15 Speech: Normal Motor strength normal: LUE, RUE, LLE, RLE Sensory: Normal - Psychological Associated symptoms: Normal affect, Normal mood - Skin Skin Temperature: Warm Skin Moisture: Dry Skin Color: Normal Course - Re-evaluation Re-evalutation: 11/08/19 21:58 After performing a Medical Screening Examination, I estimate there is LOW risk for ACUTE CORONARY SYNDROME, RESPIRATORY FAILURE, SEPSIS OR MENINGITIS, thus I consider the discharge disposition reasonable. I have reevaluated this patient multiple times and no significant life threatening changes are noted. The patient and I have discussed the diagnosis and risks, and we agree with discharging home with close follow-up. We also discussed returning to the Emergency Department immediately if new or worsening symptoms occur. We have discussed the symptoms which are most concerning (e.g., changing or worsening pain, trouble swallowing or breathing, neck stiffness, fever) that necessitate immediate return. - Vital Signs Vital signs: Temp Pulse Resp BP Pulse Ox 98.2 F 88 16 140/81 H 100 11/08/19 12:23 11/08/19 12:23 11/08/19 12:23 11/08/19 12:23 11/08/19 12:23 Discharge - Discharge Clinical Impression: Viral sore throat URI (upper respiratory infection) Qualifiers: URI type: unspecified viral URI Qualified Code(s): J06.9 - Acute upper respiratory infection, unspecified Condition: Stable Disposition: HOME, SELF-CARE Additional Instructions: SORE THROAT: Sore throats may be caused by viruses, bacteria, or fungi. Most are due to a virus, and must get better on their own. Bacterial sore throats, particularly those due to "strep," need treatment with antibiotics. If an antibiotic is prescribed, be sure to take the medication for a full 10 days. Failure to take the antibiotic can result in complications such as rheumatic fever. Sometimes, an injection of antibiotics is given instead of pills or liquid. This single "shot" is equal in effectiveness to the oral medication. To relieve symptoms, take acetaminophen for pain. Sip clear liquids frequently, or eat popsicles or ice chips. Anesthetic sprays or lozenges may help. Make sure the air in the room is not too dry. Avoid using decongestants or antihistamines. Call the doctor if there is no improvement in two days, or if you have difficulty breathing, increasing throat pain, high fever, rash, or frequent vomiting. UPPER RESPIRATORY ILLNESS: You have a viral infection of the respiratory passages -- a "cold." This common infection causes nasal congestion, drainage, and often sore throat and cough. It is highly contagious. The disease usually lasts about 10 to 14 days. There is no "cure" for the viral infection -- it must run its course. If there is a complication, such as bacterial infection in the nose, sinuses, middle ear, or bronchial tubes, antibiotics may be required. The antibiotics won't affect the virus. Drink plenty of fluids. A humidifier may help. An expectorant medication or decongestant may make you more comfortable. Use acetaminophen or ibuprofen for fever or aches. See the doctor if fever persists over two days, if there is any significant worsening of your symptoms, or if you simply fail to improve as expected. You have been recommended treatment with Claritin 10 mg Sudafed 30 mg and Mucinex 600 mg. These are all qxyi-iwv-hxhhydc medications for cough cold congestion. You do need to call the go to the pharmacist to get the Sudafed from behind the counter please get a little red pills they are more effective. You could also use Flonase which is isnl-[id number] 1 spray each nostril twice a day. You could also use salt soda solution gargles. These will help to remove the drainage from the back your throat. Chloraseptic spray was jrqi-vhy-xudivli that will also help with your sore throat. Salt and soda solution gargle 1 quart of water 1 tablespoon of salt 1 teaspoon of baking soda Mixed 3 ingredients together and boil for 1 minute Placed in a covered quart jar Use 1/2 ounce of cold solution to gargle 3 times a day COUGH-SUPPRESSANT & EXPECTORANT MEDICATION: You are to use a cough medication as needed for relief of symptoms. This medicine is a combination of an expectorant (to make the mucous thinner and more easily "coughed up") and a cough suppressant (to reduce the frequency of coughing). The cough-suppressant medicine is related to narcotics. You may experience mild nausea and sleepiness. Some patients who are very sensitive to narcotics may have stomach pain from this medicine. Taking the medicine with food reduces these side effects. Do not drive or work with machinery until you know how this medicine affects you. The expectorant should have no side effects. Iodine-containing expectorants (such as organidin) should not be taken by persons with active thyroid disease unless approved by your doctor. Call the doctor if you develop shortness of breath, hives, rash, itching, lightheadedness, or severe nausea and vomiting. USE OF ACETAMINOPHEN (Tylenol): Acetaminophen may be taken for pain relief or fever control. It's much safer than aspirin, offering a wider range of "safe" dosages. It is safe during . Some brand names are Tylenol, Panadol, Datril, Anacin 3, Tempra, and Liquiprin. Acetaminophen can be repeated every four hours. The following are maximum recommended dosages: >89 pounds or adults 650 mg to 900 mg Acetaminophen can be repeated every four hours. Maximum dose not to exceed 4000 mg a day. FOLLOW-UP CARE: If you have been referred to a physician for follow-up care, call the physicians office for an appointment as you were instructed or within the next two days. If you experience worsening or a significant change in your symptoms, notify the physician immediately or return to the Emergency Department at any time for re-evaluation. Forms: Return to Work Referrals: YONY WEBB JR, MD [NO LOCAL MD] - Follow up in 3-5 days
--- NOTE | 2019-11-08 11:47 | RADIOLOGY REPORT (SQ) ---
EXAM DESCRIPTION: CHEST 2 VIEWS COMPLETED DATE/TIME: 11/08/2019 11:35 am REASON FOR STUDY: Cough congestion COMPARISON: 05/12/2019 EXAM PARAMETERS: NUMBER OF VIEWS: two views TECHNIQUE: Digital Frontal and Lateral radiographic views of the chest acquired. RADIATION DOSE: NA LIMITATIONS: none FINDINGS: LUNGS AND PLEURA: No opacities, masses or pneumothorax. No pleural effusion. MEDIASTINUM AND HILAR STRUCTURES: No masses or contour abnormalities. HEART AND VASCULAR STRUCTURES: Heart normal size. No evidence for failure. BONES: No acute findings. HARDWARE: None in the chest. OTHER: No other significant finding. IMPRESSION: No focal airspace disease or other evidence of acute intrathoracic process. TECHNICAL DOCUMENTATION: JOB ID: [id number] 2010 [employer]- All Rights Reserved Reading location - IP/workstation name: [email or web address]
[2019-11-08 12:25] VITALS: BP 140/81
== END 2019-11-08 12:34 | disposition home or self-care (01) ==
LOC: ER 11:05
DX: J06.9 Acute upper respiratory infection, unspecified (principal); J02.9 Acute pharyngitis, unspecified; E11.9 Type 2 diabetes mellitus without complications; Z90.49 Acquired absence of other specified parts of digestive tract; Z98.84 Bariatric surgery status
CPT/HCPCS: 71046; 87070; 87880; 99283

== ENCOUNTER 2019-12-20 18:48 | Emergency (ER) | payer BC ==
--- NOTE | 2019-12-20 19:11 | ER Document Report ---
ED Medical Screen (RME) - General Chief Complaint: Knee Injury Stated Complaint: FALL/KNEE PAIN Time Seen by Provider: 12/20/19 19:05 Notes: HPI: 34-year-old female with history of unknown seizure type presenting to the emergency department complaining of a syncopal episode this morning. Patient was sitting on the toilet and had a bowel movement, became diaphoretic and somewhat lightheaded while on the toilet. Did get up to stand at the sink to wash her hands and passed out. She states that she did fall to the floor and believes she injured the knee when she fell to the floor. Unsure if she struck her head. She denies any headache or neck pain at this time. Patient states that she does not know if she had a seizure. States that she went to lay down in the bed later and then felt like she did have several small seizures. No i ncontinence of urine or bowel she has no chest pain shortness of breath abdominal pain back pain neck pain headache at this time I have greeted and performed a rapid initial assessment of this patient. A comprehensive ED assessment and evaluation of the patient, analysis of test results and completion of the medical decision making process will be conducted by additional ED providers PHYSICAL EXAMINATION: No visible effusion over the left knee she has moderate tenderness over the anterior and medial aspect of the right knee. Lung sounds are clear to auscultation regular rate and rhythm. Answering all questions appropriately I have greeted and performed a rapid initial assessment of this patient. A comprehensive ED assessment and evaluation of the patient, analysis of test results and completion of medical decision making process will be conducted by an additional ED providers. TRAVEL OUTSIDE OF THE [place] IN LAST 30 DAYS: No - Related Data Allergies/Adverse Reactions: NSAIDS (Non-Steroidal Anti-Inflamma [Nsaids] Allergy (Mild, Verified 11/08/19 11:23) prednisone [Prednisone] Allergy (Mild, Verified 11/08/19 11:23) Past Medical History - Past Medical History Cardiac Medical History: Denies: Hx Atrial Fibrillation, Hx Congestive Heart Failure, Hx Heart Attack, Hx Hypercholesterolemia, Hx Hypertension Pulmonary Medical History: Reports: Hx Bronchitis, Hx Pneumonia Denies: Hx Asthma, Hx COPD Neurological Medical History: Reports: Hx Migraine, Hx Seizures - Increased frequency with stress-tonic clonic-unchanged. noncompliant w/meds Endocrine Medical History: Reports: Hx Diabetes Mellitus Type 2 - Gestational Diabetes, Hx Hypothyroidism. Denies: Hx Diabetes Mellitus Type 1 Renal/ Medical History: Reports: Hx Ovarian Cysts. Denies: Hx Ectopic , Hx Kidney Stones GI Medical History: Reports: Hx Gastroesophageal Reflux Disease, Hx Hiatal Hernia, Hx Irritable Bowel, Hx Endoscopy Musculoskeltal Medical History: Reports Hx Arthritis, Reports Hx Fibromyalgia Skin Medical History: Reports Hx Eczema Psychiatric Medical History: Reports: Hx Anxiety, Hx Attention Deficit Hyperactivity Disorder, Hx Depression, Hx Personality Disorder, Hx Post Traumatic Stress Disorder Past Surgical History: Reports: Hx Abdominal Surgery - gastric bypass, Hx Cholecystectomy, Hx Gastric Bypass Surgery, Hx Oral Surgery - wisdom teeth, Hx Tonsillectomy - Immunizations Immunizations up to date: Yes Hx Diphtheria, Pertussis, Tetanus Vaccination: Yes - 2011 Physical Exam - Vital signs Vitals: Temp Pulse Resp BP Pulse Ox 98.9 F 104 H 16 130/75 H 100 12/20/19 18:55 12/20/19 18:55 12/20/19 18:55 12/20/19 18:55 12/20/19 18:55 Course - Vital Signs Vital signs: Temp Pulse Resp BP Pulse Ox 98.9 F 104 H 16 130/75 H 100 12/20/19 18:55 12/20/19 18:55 12/20/19 18:55 12/20/19 18:55 12/20/19 18:55
--- NOTE | 2019-12-20 19:51 | RADIOLOGY REPORT (SQ) ---
EXAM DESCRIPTION: KNEE LEFT 4 VIEW IMAGES COMPLETED DATE/TIME: 12/20/2019 7:32 pm REASON FOR STUDY: syncope COMPARISON: None. NUMBER OF VIEWS: Four views left knee. LIMITATIONS: None. FINDINGS: There is no acute or significant bone, joint or soft tissue abnormality. OTHER: No other significant finding. IMPRESSION: NORMAL STUDY. TECHNICAL DOCUMENTATION: JOB ID: [id number] Reading location - IP/workstation name: [email or web address]
[2019-12-20 20:33] LABS: APPEARANCE,URINE CLEAR; BILIRUBIN,URINE NEGATIVE (NEGATIVE); COLOR,URINE YELLOW; GLUCOSE, URINE NEGATIVE (NEGATIVE); KETONES,URINE NEGATIVE (NEGATIVE); LEUKOCYTE ESTERASE,URINE NEGATIVE (NEGATIVE); NITRITE,URINE NEGATIVE (NEGATIVE); PROTEIN,URINE NEGATIVE (NEGATIVE); URINE SPECIFIC GRAVITY 1.026; UROBILINOGEN,URINE NEGATIVE mg/dL (<2.0)
[2019-12-20 21:42] LABS: ABSOLUTE BASOPHILS # (AUTO) 0.1 10^3/uL (0.0-0.2); ABSOLUTE EOSINOPHILS # (AUTO) 0.2 10^3/uL (0.0-0.6); ABSOLUTE LYMPHOCYTES (AUTO) 3.5 10^3/uL (0.5-4.7); ABSOLUTE MONOCYTES (AUTO) 0.9 10^3/uL (0.1-1.4); ABSOLUTE NEUT (AUTO) 7.7 10^3/uL (1.7-8.2); BASOPHILS % (AUTO) 0.5 % (0-2); EOSINOPHILS % (AUTO) 1.6 % (0-6); HEMATOCRIT 37.2 % (36.0-47.0); HEMOGLOBIN 12.1 g/dL (12.0-15.5); LYMPHOCYTES % (AUTO) 28.3 % (13-45); MEAN CORPUSCULAR HEMOGLOBIN 24.3 pg (27.0-33.4); MEAN CORPUSCULAR HGB CONC 32.5 g/dL (32.0-36.0); MEAN CORPUSCULAR VOLUME 75 fl (80-97); MONOCYTES % (AUTO) 7.5 % (3-13); PLATELET COUNT 282 10^3/uL (150-450); RED BLOOD COUNT 4.96 10^6/uL (3.72-5.28); RED CELL DISTRIBUTION WIDTH 16.6 % (11.5-14.0); SEGMENTED NEUTROPHILS % (AUTO) 62.1 % (42-78); TOTAL CELLS COUNTED % (AUTO) 100 %; WHITE BLOOD COUNT 12.4 10^3/uL (4.0-10.5)
[2019-12-20] MEDS ORDERED: HYDROCODONE/ACETAMINOPHEN 5-325 MG TABLET PO ONE (21:47)
--- NOTE | 2019-12-20 21:48 | ER Document Report ---
ED Syncope and Near Syncope - General Chief Complaint: Syncope Stated Complaint: FALL/KNEE PAIN Time Seen by Provider: 12/20/19 19:05 Primary Care Provider: NURYS LAKHANI MD [ACTIVE STAFF] - Follow up as needed Mode of Arrival: Ambulatory Information source: Patient Notes: MEGHANE HPI: 34-year-old female with history of unknown seizure type presenting to the emergency department complaining of a syncopal episode this morning. Patient was sitting on the toilet and had a bowel movement, became diaphoretic and somewhat lightheaded while on the toilet. Did get up to stand at the sink to wash her hands and passed out. She states that she did fall to the floor and believes she injured the knee when she fell to the floor. Unsure if she struck her head. She denies any headache or neck pain at this time. Patient states that she does not know if she had a seizure. States that she went to lay down in the bed later and then felt like she did have several small seizures. No incontinence of urine or bowel she has no chest pain shortness of breath abdominal pain back pain neck pain headache at this time TRAVEL OUTSIDE OF THE [place] IN LAST 30 DAYS: No - Related Data Allergies/Adverse Reactions: NSAIDS (Non-Steroidal Anti-Inflamma [Nsaids] Allergy (Mild, Verified 11/08/19 11:23) prednisone [Prednisone] Allergy (Mild, Verified 11/08/19 11:23) Past Medical History - General Information source: Patient - Social History Smoking Status: Never Smoker Frequency of alcohol use: None Drug Abuse: None Family History: Reviewed & Not Pertinent Patient has suicidal ideation: No Patient has homicidal ideation: No - Past Medical History Cardiac Medical History: Denies: Hx Atrial Fibrillation, Hx Congestive Heart Failure, Hx Heart Attack, Hx Hypercholesterolemia, Hx Hypertension Pulmonary Medical History: Reports: Hx Bronchitis, Hx Pneumonia Denies: Hx Asthma, Hx COPD Neurological Medical History: Reports: Hx Migraine, Hx Seizures - Increased frequency with stress-tonic clonic-unchanged. noncompliant w/meds Endocrine Medical History: Reports: Hx Diabetes Mellitus Type 2 - Gestational Diabetes, Hx Hypothyroidism. Denies: Hx Diabetes Mellitus Type 1 Renal/ Medical History: Reports: Hx Ovarian Cysts. Denies: Hx Ectopic , Hx Kidney Stones GI Medical History: Reports: Hx Gastroesophageal Reflux Disease, Hx Hiatal Hernia, Hx Irritable Bowel, Hx Endoscopy Musculoskeletal Medical History: Reports Hx Arthritis, Reports Hx Fibromyalgia Skin Medical History: Reports Hx Eczema Psychiatric Medical History: Reports: Hx Anxiety, Hx Attention Deficit Hyperactivity Disorder, Hx Depression, Hx Personality Disorder, Hx Post Traumatic Stress Disorder Past Surgical History: Reports: Hx Abdominal Surgery - gastric bypass, Hx Cholecystectomy, Hx Gastric Bypass Surgery, Hx Oral Surgery - wisdom teeth, Hx Tonsillectomy - Immunizations Immunizations up to date: Yes Hx Diphtheria, Pertussis, Tetanus Vaccination: Yes - 2011 Review of Systems - Review of Systems Notes: See HPI -: Yes All other systems reviewed and negative Physical Exam - Vital signs Vitals: Temp Pulse Resp BP Pulse Ox 98.9 F 104 H 16 130/75 H 100 12/20/19 18:55 12/20/19 18:55 12/20/19 18:55 12/20/19 18:55 12/20/19 18:55 - Notes Notes: PHYSICAL EXAMINATION: GENERAL: Well-appearing, well-nourished and in no acute distress. HEAD: Atraumatic, normocephalic. EYES: Pupils equal round and reactive to light, extraocular movements intact, conjunctiva are normal. ENT: Nares patent, oropharynx clear without exudates. Moist mucous membranes. NECK: Normal range of motion, supple without lymphadenopathy LUNGS: Breath sounds clear to auscultation bilaterally and equal. No wheezes rales or rhonchi. HEART: Regular rate and rhythm without murmurs ABDOMEN: Soft, nontender, nondistended abdomen. No guarding, no rebound. No masses appreciated. Female : deferred Musculoskeletal: Normal range of motion, no pitting or edema. No cyanosis. Tenderness to anterior left knee, no crepitus or deformity. Mild swelling noted . NEUROLOGICAL: Cranial nerves grossly intact. Normal speech, normal gait. Normal sensory, motor exams PSYCH: Normal mood, normal affect. SKIN: Warm, Dry, normal turgor, no rashes or lesions noted. PHYSICAL EXAMINATION: Course - Re-evaluation Re-evalutation: Patient appears well, nontoxic, vital signs within normal limits. Her work-up today has been reassuring. Labs unremarkable. Left knee x-ray negative. Will place patient in an Arun wrap and on crutches. She will follow-up with Ortho if she continues to have knee pain. Recommended follow-up with PCP for syncopal episode. - Vital Signs Vital signs: Temp Pulse Resp BP Pulse Ox 97.9 F 86 18 107/64 100 12/20/19 23:10 12/20/19 23:10 12/20/19 23:10 12/20/19 23:10 12/20/19 23:10 - Laboratory Result Diagrams: 12/20/19 21:30 12/20/19 21:30 Laboratory results interpreted by me: 12/20/19 12/20/19 12/20/19 20:03 21:30 21:30 WBC 12.4 H MCV 75 L MCH 24.3 L RDW 16.6 H Sodium 136.5 L Urine Ascorbic Acid 40 H Procedures - Immobilization Left knee Pre-Proc Neuro Vasc Exam: Normal Immobilizer type: Arun wrap, Crutches Performed by: PCT Post-Proc Neuro Vasc Exam: Normal Discharge - Discharge Clinical Impression: Left knee sprain Qualifiers: Encounter type: initial encounter Involved ligament of knee: unspecified ligament Qualified Code(s): S83.92XA - Sprain of unspecified site of left knee, initial encounter Syncopal episodes Qualifiers: Syncope type: unspecified Qualified Code(s): R55 - Syncope and collapse Condition: Stable Disposition: HOME, SELF-CARE Additional Instructions: SPRAINED KNEE: Your sprained knee results from a stretching or tearing of the ligaments which support the joint. This often results from a bending stress -- such as a twisting fall while skiing or a "clip" while playing football. The ligaments will require time and protection to heal adequately. A knee sprain can be quite serious, and should be taken seriously. The usual treatment is splinting of the knee, ice packs, and elevation. You shouldn't walk on the leg if weightbearing is painful. Unless the sprain is obviously a minor one, follow-up exam is very important. The degree of ligament damage often cannot be fully assessed at first due to muscle spasm and pain. Your treatment plan may change based on the physician's findings during your follow-up examination. Call the doctor at once if there is severe swelling, increasing pain, numbness, or other alarming symptoms. SUSPECTED INTERNAL KNEE INJURY: The examiner of your injured knee suspects an internal injury to the cartilage or internal ligaments. This must be further investigated by an claim benefit specialist. The knee should be protected, ice packed, and elevated while awaiting your follow-up exam by the orthopedist. If there is severe swelling, severe pain, or any new symptoms while awaiting your exam, you should call the orthopedist. (If he/she is unavailable, call us or return for re-examination.) USE OF CRUTCHES: The doctor has recommended that you not bear weight at this time. You will need to use crutches. Adjust the crutches so the tops come to about two inches under the armpit while you are standing upright. Use your hands -- not your armpits -- to support your weight. To get into a chair, support yourself with one crutch on the injured side. Hold the chair with the other hand, then lower yourself while putting all your weight on the good leg. Going up stairs is `good leg up, step up, then bring up crutches and bad leg.' Down stairs is `bad leg and crutches down, then bring good leg down.' If you develop numbness or swelling in an arm or hand, you are using the crutches incorrectly. Return if you are having any problems with the crutches. ICE & ELEVATION: Apply ice packs frequently against the painful area. Many different schedules are recommended, such as "20 minutes on, 20 minutes off" or "one hour ice, two hours rest." If you need to work, you may need to go longer between ice treatments. You should plan to have the area ice packed AT LEAST one-fourth of the time. The ice should be applied over the wrap, tape, or splint, or over a layer of cloth -- not directly against the skin. Some ice bags have a built-in cloth and can be put directly on the skin. Your injured part should be elevated as much as possible over the next 48 hours. Try to keep the injury above the level of the heart. Avoid use of the injured area. Elevation and rest will decrease the swelling. ORAL NARCOTIC MEDICATION: You have been given a prescription for pain control. This medication is a narcotic. It's best taken with food, as nausea can result if taken on an empty stomach. Don't operate machinery or drive within six hours of taking this medication. Do not combine this medicine with alcohol, or with any medication which can cause sedation (such as cold tablets or sleeping pills) unless you get permission from the physician. Narcotics tend to cause constipation. If possible, drink plenty of fluids and eat a diet high in fiber and fruits. Please be aware that prescription narcotics also have the potential for abuse. People become addicted to these medications because of the general sense of wellbeing that they induce. This feeling along with a significant reduction in tension, anxiety, and aggression provides a stimulating seductive quality to these drugs. Once your pain is under control, we encourage you to discard your unused narcotics. FOLLOW-UP CARE: If you have been referred to a physician for follow-up care, call the physicians office for an appointment as you were instructed or within the next 3-5 days. Please continue to get an appointment with your neurologist for management of your seizures. If you experience worsening or a significant change in your symptoms, notify the physician immediately or return to the Emergency Department at any time for re-evaluation. Prescriptions: Hydrocodone/Acetaminophen [Hydrocodone-Acetamn 7.5-325/15] 15 ml PO Q6H PRN #240 ml PRN Reason: Forms: Treatment of Relative/Child Referrals: NURYS LAKHANI MD [ACTIVE STAFF] - Follow up as needed
[2019-12-20 22:03] LABS: ALBUMIN 4.4 g/dL (3.5-5.0); ALKALINE PHOSPHATASE 56 U/L (38-126); ANION GAP 6 (5-19); ASPARTATE AMINO TRANSFERASE 23 U/L (14-36); BILIRUBIN,TOTAL 0.3 mg/dL (0.2-1.3); BLOOD UREA NITROGEN 18 mg/dL (7-20); CALCIUM 9.9 mg/dL (8.4-10.2); CARBON DIOXIDE 27 mmol/L (22-30); CHLORIDE 104 mmol/L (98-107); GLUCOSE 95 mg/dL (75-110); POTASSIUM 4.3 mmol/L (3.6-5.0); TOTAL PROTEIN 7.5 g/dL (6.3-8.2)
[2019-12-20] MEDS ORDERED: HYDROCOD/ACETAMIN 7.5-325 MG/15 ML ORAL SOLN UDCUP PO ONE (22:06)
--- NOTE | 2019-12-20 22:47 | EKG REPORT ---
SEVERITY:- NORMAL ECG - SINUS RHYTHM : Confirmed by: Shira Mendoza 20-Dec-2019 22:46:10
[2019-12-20 23:14] VITALS: BP 107/64
== END 2019-12-20 23:10 | disposition home or self-care (01) ==
LOC: ER 18:48
DX: S83.92XA Sprain of unspecified site of left knee, initial encounter (principal); W18.39XA Other fall on same level, initial encounter; Y93.89 Activity, other specified; R55 Syncope and collapse; Z88.8 Allergy status to other drugs, medicaments and biological substances
CPT/HCPCS: 36415; 80053; 81001; 84703; 85025; 93005; 93010; 99284

== ENCOUNTER 2020-03-11 07:28 | Emergency (ER) | payer BC ==
[2020-03-11] MEDS ORDERED: ONDANSETRON HCL INJ/PF 4 MG/2 ML SDV IV ONE ×2 (08:18→11:16)
[2020-03-11] MEDS ORDERED: MORPHINE SULFATE 10 MG/ML INJ IV ONE ×3 (08:19→11:24)
[2020-03-11 08:28] LABS: ABSOLUTE BASOPHILS # (AUTO) 0.1 10^3/uL (0.0-0.2); ABSOLUTE LYMPHOCYTES (AUTO) 2.8 10^3/uL (0.5-4.7); ABSOLUTE MONOCYTES (AUTO) 0.6 10^3/uL (0.1-1.4); ABSOLUTE NEUT (AUTO) 5.1 10^3/uL (1.7-8.2); BASOPHILS % (AUTO) 0.9 % (0-2); EOSINOPHILS % (AUTO) 0.5 % (0-6); HEMATOCRIT 38.1 % (36.0-47.0); HEMOGLOBIN 12.1 g/dL (12.0-15.5); LYMPHOCYTES % (AUTO) 32.3 % (13-45); MEAN CORPUSCULAR HEMOGLOBIN 23.7 pg (27.0-33.4); MEAN CORPUSCULAR HGB CONC 31.8 g/dL (32.0-36.0); MEAN CORPUSCULAR VOLUME 75 fl (80-97); MONOCYTES % (AUTO) 6.7 % (3-13); PLATELET COUNT 272 10^3/uL (150-450); RED BLOOD COUNT 5.11 10^6/uL (3.72-5.28); RED CELL DISTRIBUTION WIDTH 15.8 % (11.5-14.0); SEGMENTED NEUTROPHILS % (AUTO) 59.6 % (42-78); TOTAL CELLS COUNTED % (AUTO) 100 %; WHITE BLOOD COUNT 8.6 10^3/uL (4.0-10.5)
--- NOTE | 2020-03-11 08:32 | ER Document Report ---
ED GI/ - General Chief Complaint: Abdominal Pain Stated Complaint: ABDOMINAL PAIN Time Seen by Provider: 03/11/20 08:08 Primary Care Provider: SAVANNA LATIF MD [Primary Care Provider] - Follow up as needed Notes: CHIEF COMPLAINT: Upper abdominal pain for 4 days HPI: 35-year-old female with history of cholecystectomy and gastric bypass Theresa-en-Y done in [place] in 2012 presenting for upper abdominal pain for 4 days. Has history of gastric ulcers feels this is similar. States she normally would get Carafate and Prilosec for this. No fever. Has had nausea no vomiting. Did not call her bariatric surgeon in [place] prior to coming to the emergency department today ROS: See HPI - all other systems were reviewed and are otherwise negative Constitutional: no fever Eyes: no drainage, no blurred vision ENT: no runny nose, no sore throat Cardiovascular: no chest pain Resp: no SOB, no cough GI: no vomiting, no diarrhea, + abdominal pain : no dysuria Integumentary: no rash Allergy: no hives Musculoskeletal: no extremity pain or swelling Neurological: no numbness/tingling, no weakness MEDICATIONS: I agree with the patient medications as charted by the RN. ALLERGIES: I agree with the allergies as charted by the RN. PAST MEDICAL HISTORY/PAST SURGICAL HISTORY: Reviewed and agree as charted by RN. SOCIAL HISTORY: Reviewed and agree as charted by RN. FAMILY HISTORY: No significant familial comorbid conditions directly related to patient complaint EXAM: Reviewed vital signs as charted by RN. CONSTITUTIONAL: Alert and oriented and responds appropriately to questions. Well-appearing; well-nourished HEAD: Normocephalic; atraumatic EYES: PERRL; Conjunctivae clear, sclerae non-icteric ENT: normal nose; no rhinorrhea; moist mucous membranes; pharynx without lesions noted, no uvula edema or deviation, no tonsillar hypertrophy, phonation normal NECK: Supple without meningismus; non-tender; no cervical lymphadenopathy, no masses CARD: RRR; no murmurs, no clicks, no rubs, no gallops; symmetric distal pulses RESP: Normal chest excursion without splinting or tachypnea; breath sounds clear and equal bilaterally; no wheezes, no rhonchi, no rales, pulse oximetry 100% on room air not hypoxic ABD/GI: Normal bowel sounds; non-distended; soft, moderate tenderness to the epigastric region on palpation, no rebound, no guarding; no palpable organomegaly or masses. BACK: The back appears normal and is non-tender to palpation, there is no CVA tenderness EXT: Normal ROM in all joints; non-tender to palpation; no cyanosis, no effusions, no edema SKIN: Normal color for age and race; warm; dry; good turgor; no acute lesions noted NEURO: Moves all extremities equally; Motor and sensory function intact PSYCH: The patient's mood and manner are appropriate. Grooming and personal hygiene are appropriate. MDM: 35-year-old female with gastric bypass history with upper abdominal pain. Patient has history of gastric ulcers this is likely the same as she feels it is very similar but given her history will obtain CT imaging to ensure there is no internal hernia or other complicating factor. TRAVEL OUTSIDE OF THE [place] IN LAST 30 DAYS: No - Related Data Allergies/Adverse Reactions: NSAIDS (Non-Steroidal Anti-Inflamma [Nsaids] Allergy (Mild, Verified 11/08/19 11:23) prednisone [Prednisone] Allergy (Mild, Verified 11/08/19 11:23) Home Medications: xanax, buspar, GERD meds Past Medical History - Social History Smoking Status: Never Smoker Family History: Reviewed & Not Pertinent Patient has homicidal ideation: No - Past Medical History Cardiac Medical History: Denies: Hx Atrial Fibrillation, Hx Congestive Heart Failure, Hx Heart Attack, Hx Hypercholesterolemia, Hx Hypertension Pulmonary Medical History: Reports: Hx Bronchitis, Hx Pneumonia Denies: Hx Asthma, Hx COPD Neurological Medical History: Reports: Hx Migraine, Hx Seizures - Increased frequency with stress-tonic clonic-unchanged. noncompliant w/meds Endocrine Medical History: Reports: Hx Diabetes Mellitus Type 2 - Gestational Diabetes, Hx Hypothyroidism. Denies: Hx Diabetes Mellitus Type 1 Renal/ Medical History: Reports: Hx Ovarian Cysts. Denies: Hx Ectopic , Hx Kidney Stones GI Medical History: Reports: Hx Gastroesophageal Reflux Disease, Hx Hiatal Hernia, Hx Irritable Bowel, Hx Endoscopy Musculoskeletal Medical History: Reports Hx Arthritis, Reports Hx Fibromyalgia Skin Medical History: Reports Hx Eczema Psychiatric Medical History: Reports: Hx Anxiety, Hx Attention Deficit Hyperactivity Disorder, Hx Depression, Hx Personality Disorder, Hx Post Traumatic Stress Disorder Past Surgical History: Reports: Hx Abdominal Surgery - gastric bypass, Hx Cholecystectomy, Hx Gastric Bypass Surgery, Hx Oral Surgery - wisdom teeth, Hx Tonsillectomy - Immunizations Immunizations up to date: Yes Hx Diphtheria, Pertussis, Tetanus Vaccination: Yes - 2011 Physical Exam - Vital signs Vitals: Temp Pulse Resp BP Pulse Ox 98.8 F 96 20 115/63 100 03/11/20 07:33 03/11/20 07:33 03/11/20 07:33 03/11/20 07:33 03/11/20 07:33 Course - Re-evaluation Re-evalutation: 03/11/20 12:00 Patient is feeling slightly better. CT imaging showed a hiatal hernia. She will follow-up with her bariatric surgeons on Friday. We will place her on a short course of pain medication, Carafate, Prilosec per her request - Vital Signs Vital signs: Temp Pulse Resp BP Pulse Ox 98.8 F 96 20 115/63 100 03/11/20 07:33 03/11/20 07:33 03/11/20 07:33 03/11/20 07:33 03/11/20 07:33 - Laboratory Result Diagrams: 03/11/20 08:10 03/11/20 08:10 Laboratory results interpreted by me: 03/11/20 03/11/20 03/11/20 08:10 08:10 08:20 MCV 75 L MCH 23.7 L MCHC 31.8 L RDW 15.8 H Chloride 108 H Urine Protein 30 H Urine Bilirubin SMALL H Urine Urobilinogen 4.0 H Ur Leukocyte Esterase MODERATE H Discharge - Discharge Clinical Impression: Epigastric abdominal pain Condition: Stable Disposition: HOME, SELF-CARE Additional Instructions: Medications as prescribed. Follow-up with your bariatric surgeon on Friday for reevaluation of symptoms return for any worsening condition Prescriptions: Sucralfate [Carafate Susp 1 Gm/10 Ml Udcup] 1 gm PO Q6H #280 udc Hydrocodone/Acetaminophen [Lortab 7.5-325 mg/15 ml Oral Soln] 5 ml PO Q6H PRN #60 ml PRN Reason: Omeprazole Magnesium [Prilosec Otc] 40 mg PO DAILY #20 tablet.dr Referrals: SAVANNA LATIF MD [Primary Care Provider] - Follow up as needed
[2020-03-11 08:45] LABS: ALBUMIN 4.2 g/dL (3.5-5.0); ALKALINE PHOSPHATASE 55 U/L (38-126); ANION GAP 5 (5-19); ASPARTATE AMINO TRANSFERASE 21 U/L (14-36); BILIRUBIN,TOTAL 0.5 mg/dL (0.2-1.3); BLOOD UREA NITROGEN 14 mg/dL (7-20); CALCIUM 9.4 mg/dL (8.4-10.2); CARBON DIOXIDE 25 mmol/L (22-30); CHLORIDE 108 mmol/L (98-107); GLUCOSE 97 mg/dL (75-110); POTASSIUM 4.2 mmol/L (3.6-5.0); TOTAL PROTEIN 7.3 g/dL (6.3-8.2)
[2020-03-11 08:54] LABS: APPEARANCE,URINE CLEAR; BILIRUBIN,URINE SMALL (NEGATIVE); COLOR,URINE AMBER; GLUCOSE, URINE NEGATIVE (NEGATIVE); KETONES,URINE NEGATIVE (NEGATIVE); LEUKOCYTE ESTERASE,URINE MODERATE (NEGATIVE); NITRITE,URINE NEGATIVE (NEGATIVE); PROTEIN,URINE 30 mg/dL (NEGATIVE); URINE SPECIFIC GRAVITY 1.038
--- NOTE | 2020-03-11 11:20 | RADIOLOGY REPORT (SQ) ---
EXAM DESCRIPTION: CT ABD/PELVIS WITH IV ORAL IMAGES COMPLETED DATE/TIME: 03/11/2020 10:38 am REASON FOR STUDY: upper abd pain hx owen-en-Y 2012 COMPARISON: 01/09/2015 TECHNIQUE: CT scan of the abdomen and pelvis performed using helical scanning technique with dynamic intravenous contrast injection. No oral contrast. Images reviewed with lung, soft tissue, and bone windows. Reconstructed coronal and sagittal MPR images reviewed. Delayed images were not acquired. Al l images stored on PACS. All CT scanners at this facility use dose modulation, iterative reconstruction, and/or weight based d osing when appropriate to reduce radiation dose to as low as reasonably achievable (ALARA). [facility]: Dose Right [facility]: CareDose [facility]: Dose Right [facility]: Teradose 4D [facility]: Kaleio CONTRAST TYPE AND DOSE: contrast/concentration: Isovue 350.00 mmol/ml; Total Contrast Delivered: 100 .0 ml; Total Saline Delivered: 72.0 ml RENAL FUNCTION: BUN 14; creatinine 1.03 RADIATION DOSE: CT Rad equipment meets quality standard of care and radiation dose reduction techniq ues were employed. CTDIvol: 14.0 mGy. DLP: 769 mGy-cm.. LIMITATIONS: None. FINDINGS: LOWER CHEST: No significant findings. No nodules or infiltrates. LIVER: Normal size. No masses. Trace central intrahepatic biliary prominence is not entirely unexpec florencia in the postcholecystectomy setting. SPLEEN: Normal size. No focal lesions. PANCREAS: No masses. No significant calcifications. No adjacent inflammation or peripancreatic fluid collections. Pancreatic duct not dilated. GALLBLADDER: Surgically absent. ADRENAL GLANDS: No significant masses or asymmetry. RIGHT KIDNEY AND URETER: No solid masses. No significant calcifications. No hydronephrosis or hyd roureter. LEFT KIDNEY AND URETER: No solid masses. No significant calcifications. No hydronephrosis or hydr oureter. AORTA AND VESSELS: No aneurysm. No dissection. Renal arteries, SMA, celiac without stenosis. RETROPERITONEUM: No retroperitoneal adenopathy, hemorrhage or masses. BOWEL AND PERITONEAL CAVITY: Status post bariatric surgery with moderate hiatal hernia. The remainin g bowel is unremarkable. APPENDIX: Normal. PELVIS: No mass. No free fluid. Normal bladder. Incidental note is made of an intrauterine device. ABDOMINAL WALL: No masses. No hernias. BONES: No significant or acute findings. OTHER: No other significant finding. IMPRESSION: Status post bariatric surgery with moderate hiatal hernia. Status post cholecystectomy. No evidence of acute intra-abdominal infectious/inflammatory process. TECHNICAL DOCUMENTATION: JOB ID: [id number] Quality ID # [id number]: Final reports with documentation of one or more dose reduction techniques (e.g., Au tomated exposure control, adjustment of the mA and/or kV according to patient size, use of iterative reconstruction technique) 2010 [employer]- All Rights Reserved Reading location - IP/workstation name: [email or web address]
[2020-03-11] MEDS ORDERED: MAG HYDROX/AL HYDROX/SIMETH SUSP 30 ML UDCUP PO ONE (11:24)
[2020-03-11] MEDS ORDERED: LIDOCAINE 2% VISCOUS SOLN 15 ML UDCUP PO ONE (11:24)
[2020-03-11 12:18] VITALS: BP 150/108
== END 2020-03-11 12:18 | disposition home or self-care (01) ==
LOC: ER 07:28
DX: R10.13 Epigastric pain (principal); K21.9 Gastro-esophageal reflux disease without esophagitis; K44.9 Diaphragmatic hernia without obstruction or gangrene; Z98.84 Bariatric surgery status; Z90.49 Acquired absence of other specified parts of digestive tract; Z87.11 Personal history of peptic ulcer disease; Z79.899 Other long term (current) drug therapy
CPT/HCPCS: 96376; 99284; 96374; 96375; 36415; 83690; 84703; 85025; 80053; 81001; 74177; J3490; J2270; J2405

== ENCOUNTER 2020-07-30 12:23 | Emergency (ER) | payer BC ==
[2020-07-30] MEDS ORDERED: NORMAL SALINE 1000 ML 1,000 ML IV ONE ×2 (13:24→16:45)
[2020-07-30] MEDS ORDERED: MAG HYDROX/AL HYDROX/SIMETH SUSP 30 ML UDCUP PO ONE ×2 (13:24→22:38)
[2020-07-30] MEDS ORDERED: LIDOCAINE 2% VISCOUS SOLN 15 ML UDCUP PO ONE ×2 (13:24→22:39)
[2020-07-30] MEDS ORDERED: ONDANSETRON HCL INJ/PF 4 MG/2 ML SDV IV ONE ×2 (13:25→17:19)
[2020-07-30 14:21] LABS: ABSOLUTE BASOPHILS # (AUTO) 0.1 10^3/uL (0.0-0.2); ABSOLUTE LYMPHOCYTES (AUTO) 2.3 10^3/uL (0.5-4.7); ABSOLUTE MONOCYTES (AUTO) 0.7 10^3/uL (0.1-1.4); ABSOLUTE NEUT (AUTO) 7.1 10^3/uL (1.7-8.2); BASOPHILS % (AUTO) 0.6 % (0-2); EOSINOPHILS % (AUTO) 0.1 % (0-6); HEMATOCRIT 35.3 % (36.0-47.0); HEMOGLOBIN 11.2 g/dL (12.0-15.5); MEAN CORPUSCULAR HEMOGLOBIN 23.6 pg (27.0-33.4); MEAN CORPUSCULAR HGB CONC 31.8 g/dL (32.0-36.0); MEAN CORPUSCULAR VOLUME 74 fl (80-97); MONOCYTES % (AUTO) 6.4 % (3-13); PLATELET COUNT 251 10^3/uL (150-450); RED BLOOD COUNT 4.76 10^6/uL (3.72-5.28); RED CELL DISTRIBUTION WIDTH 15.9 % (11.5-14.0); SEGMENTED NEUTROPHILS % (AUTO) 69.9 % (42-78); TOTAL CELLS COUNTED % (AUTO) 100 %; WHITE BLOOD COUNT 10.2 10^3/uL (4.0-10.5)
[2020-07-30 14:29] LABS: ALBUMIN 4.2 g/dL (3.5-5.0); ALKALINE PHOSPHATASE 73 U/L (38-126); ANION GAP 6 (5-19); ASPARTATE AMINO TRANSFERASE 23 U/L (14-36); BILIRUBIN,TOTAL 0.5 mg/dL (0.2-1.3); BLOOD UREA NITROGEN 12 mg/dL (7-20); CALCIUM 9.7 mg/dL (8.4-10.2); CARBON DIOXIDE 31 mmol/L (22-30); CHLORIDE 96 mmol/L (98-107); GLUCOSE 102 mg/dL (75-110); POTASSIUM 4.1 mmol/L (3.6-5.0); TOTAL PROTEIN 7.1 g/dL (6.3-8.2)
[2020-07-30] MEDS ORDERED: BUTALB/ACETAMINOPHEN/CAFFEINE 1 TAB EACH PO ONE (15:54)
--- NOTE | 2020-07-30 15:55 | ER Document Report ---
ED GI/ - General Information source: Patient TRAVEL OUTSIDE OF THE [place] IN LAST 30 DAYS: No - HPI Patient complains to provider of: Abdominal pain. No: Vomiting Onset: Last week Timing/Duration: Worse Quality of pain: Sharp Pain Level: 4 Location: LUQ Associated symptoms: Nausea, Vomiting - Earlier in the week. denies: Chest pain, Diarrhea, Dysuria, Fever Exacerbated by: Denies Relieved by: Denies Similar symptoms previously: Yes Recently seen / treated by doctor: No <YOUNG EMMANUEL - Last Filed: 07/30/20 18:29> <ZONIA L[address] - Last Filed: 07/30/20 22:08> - General Chief Complaint: Abdominal Pain Stated Complaint: ABDOMINAL PAIN Time Seen by Provider: 07/30/20 12:56 Primary Care Provider: SAVANNA LATIF MD [Primary Care Provider] - Follow up as needed Notes: Patient presents complaining of left upper quadrant abdominal pain for the past week with nausea. Patient states that she had vomited earlier in the week alth ough none today. Patient reports occasional low-grade fever at home. Patient denies any diarrhea. Patient denies any concerns about possible Covid. Patient states that she does have a headache and is having some photophobia. Patient has a history of previous gastric bypass and has had a history of ulcers in the past and is concerned about this today. (YOUNG EMMANUEL) - Related Data Allergies/Adverse Reactions: NSAIDS (Non-Steroidal Anti-Inflamma [Nsaids] Allergy (Mild, Verified 07/30/20 12:52) prednisone [Prednisone] Allergy (Mild, Verified 07/30/20 12:52) Past Medical History - General Information source: Patient - Social History Smoking Status: Current Some Day Smoker Drug Abuse: Marijuana Lives with: Spouse/Significant other Family History: Reviewed & Not Pertinent Patient has homicidal ideation: No - Past Medical History Cardiac Medical History: Denies: Hx Atrial Fibrillation, Hx Congestive Heart Failure, Hx Heart Attack, Hx Hypercholesterolemia, Hx Hypertension Pulmonary Medical History: Reports: Hx Bronchitis, Hx Pneumonia Denies: Hx Asthma, Hx COPD Neurological Medical History: Reports: Hx Migraine, Hx Seizures - Increased frequency with stress-tonic clonic-unchanged. noncompliant w/meds Endocrine Medical History: Reports: Hx Diabetes Mellitus Type 2 - Gestational Diabetes, Hx Hypothyroidism. Denies: Hx Diabetes Mellitus Type 1 Renal/ Medical History: Reports: Hx Ovarian Cysts. Denies: Hx Ectopic , Hx Kidney Stones GI Medical History: Reports: Hx Gastroesophageal Reflux Disease, Hx Hiatal Hernia, Hx Irritable Bowel, Hx Endoscopy Musculoskeletal Medical History: Reports Hx Arthritis, Reports Hx Fibromyalgia Skin Medical History: Reports Hx Eczema Psychiatric Medical History: Reports: Hx Anxiety, Hx Attention Deficit Hyperactivity Disorder, Hx Depression, Hx Personality Disorder, Hx Post Traumatic Stress Disorder Past Surgical History: Reports: Hx Abdominal Surgery - gastric bypass, Hx Cholecystectomy, Hx Gastric Bypass Surgery, Hx Oral Surgery - wisdom teeth, Hx Tonsillectomy - Immunizations Immunizations up to date: Yes Hx Diphtheria, Pertussis, Tetanus Vaccination: Yes - 2011 <YOUNG EMMANUEL - Last Filed: 07/30/20 18:29> Review of Systems - Review of Systems Constitutional: Fever - Low-grade fever EENT: No symptoms reported Cardiovascular: No symptoms reported. denies: Chest pain Respiratory: No symptoms reported. denies: Cough, Short of breath Gastrointestinal: Abdominal pain, Nausea, Vomiting Genitourinary: No symptoms reported. denies: Dysuria Female Genitourinary: No symptoms reported Musculoskeletal: No symptoms reported. denies: Back pain, Neck pain Skin: No symptoms reported Hematologic/Lymphatic: No symptoms reported Neurological/Psychological: Headaches. denies: Confusion, Weakness <YOUNG EMMANUEL - Last Filed: 07/30/20 18:29> Physical Exam <YOUNG EMMANUEL - Last Filed: 07/30/20 18:29> - Vital signs Vitals: Temp Pulse Resp BP Pulse Ox 98.9 F 86 16 138/93 H 100 07/30/20 12:35 07/30/20 12:35 07/30/20 12:35 07/30/20 12:35 07/30/20 12:35 - Notes Notes: PHYSICAL EXAMINATION: GENERAL: Well-appearing and in no acute distress. HEAD: Atraumatic, normocephalic. EYES: sclera anicteric, conjunctiva are normal. ENT: nares patent. Moist mucous membranes. NECK: Normal range of motion, supple without lymphadenopathy, no meningismus LUNGS: CTAB and equal. No wheezes rales or rhonchi. HEART: Regular rate and rhythm without murmurs ABDOMEN: Soft, obese, left upper quadrant tenderness, normal bowel sounds, no guarding. EXTREMITIES: Normal range of motion, no pitting edema. BACK: No midline tenderness, no step-off or deformity. No CVA tenderness NEUROLOGICAL: Cranial nerves grossly intact. Normal speech. PSYCH: Normal mood, normal affect. SKIN: Warm, Dry, normal turgor, no rashes or lesions noted (YOUNG EMMANUEL) Course - Laboratory Result Diagrams: 07/30/20 13:54 07/30/20 13:54 <YOUNG EMMANUEL - Last Filed: 07/30/20 18:29> - Laboratory Result Diagrams: 07/30/20 13:54 07/30/20 13:54 <[address] - Last Filed: 07/30/20 22:08> - Re-evaluation Re-evalutation: 07/30/20 15:40 Patient reports that abdominal pain is improved although not resolved after GI cocktail. Patient does have mild elevation of lipase at this time. Patient complains of continued headache pain. Additional medication ordered as well as CT imaging at this time. 07/30/20 18:32 Report and handoff given to Santos Lane NP (YOUNG EMMANUEL) 07/30/20 18:45 I have introduced myself to the patient and she is aware we are waiting on CT results for disposition. She is in no acute distress and has no questions at this time. 07/30/20 22:05 Rechecked patient who has responded well to treatment in the ER. Discussed with patient: results, diagnosis, treatment plan, and need for follow-up. Return to the emergency department warnings were given. All questions and concerns were addressed. The plan is agreed with and understood. Patient is stable and ready for discharge. (ZONIA LANE) - Vital Signs Vital signs: Temp Pulse Resp BP Pulse Ox 99.1 F 89 18 136/79 H 99 07/30/20 17:10 07/30/20 17:10 07/30/20 17:10 07/30/20 17:10 07/30/20 17:10 - Laboratory Laboratory results interpreted by me: 07/30/20 07/30/20 07/30/20 13:54 13:54 16:00 Hgb 11.2 L Hct 35.3 L MCV 74 L MCH 23.6 L MCHC 31.8 L RDW 15.9 H Sodium 132.5 L Chloride 96 L Carbon Dioxide 31 H Lipase 357.8 H Urine Ketones 20 H Ur Leukocyte Esterase TRACE H 07/30/20 18:32 Labs- All tests 24 hr 07/30/20 07/30/20 07/30/20 13:54 13:54 13:54 WBC 10.2 RBC 4.76 Hgb 11.2 L Hct 35.3 L MCV 74 L MCH 23.6 L MCHC 31.8 L RDW 15.9 H Plt Count 251 Lymph % (Auto) 23.0 Chambers % (Auto) 6.4 Eos % (Auto) 0.1 Baso % (Auto) 0.6 Absolute Neuts (auto) 7.1 Absolute Lymphs (auto) 2.3 Absolute Monos (auto) 0.7 Absolute Eos (auto) 0.0 Absolute Basos (auto) 0.1 Seg Neutrophils % 69.9 Sodium 132.5 L Potassium 4.1 Chloride 96 L Carbon Dioxide 31 H Anion Gap 6 BUN 12 Creatinine 0.83 Est GFR ( Amer) > 60 Est GFR (MDRD) Non-Af > 60 Glucose 102 Calcium 9.7 Total Bilirubin 0.5 Direct Bilirubin 0.0 Neonat Total Bilirubin Not Reportable Neonat Direct Bilirubin Not Reportable Neonat Indirect Bili Not Reportable AST 23 ALT 17 Alkaline Phosphatase 73 Total Protein 7.1 Albumin 4.2 Lipase 357.8 H Serum HCG, Qual NEGATIVE Urine Color Urine Appearance Urine pH Ur Specific [place] Urine Protein Urine Glucose (UA) Urine Ketones Urine Blood Urine Nitrite Urine Bilirubin Urine Urobilinogen Ur Leukocyte Esterase Urine Bacteria (Auto) Squamous Epi Cells Auto Amorphous Sediment Auto Urine Mucus (Auto) Urine Ascorbic Acid 07/30/20 16:00 WBC RBC Hgb Hct MCV MCH MCHC RDW Plt Count Lymph % (Auto) Chambers % (Auto) Eos % (Auto) Baso % (Auto) Absolute Neuts (auto) Absolute Lymphs (auto) Absolute Monos (auto) Absolute Eos (auto) Absolute Basos (auto) Seg Neutrophils % Sodium Potassium Chloride Carbon Dioxide Anion Gap BUN Creatinine Est GFR ( Amer) Est GFR (MDRD) Non-Af Glucose Calcium Total Bilirubin Direct Bilirubin Neonat Total Bilirubin Neonat Direct Bilirubin Neonat Indirect Bili AST ALT Alkaline Phosphatase Total Protein Albumin Lipase Serum HCG, Qual Urine Color YELLOW Urine Appearance TURBID Urine pH 7.0 Ur Specific [place] 1.011 Urine Protein NEGATIVE Urine Glucose (UA) NEGATIVE Urine Ketones 20 H Urine Blood NEGATIVE Urine Nitrite NEGATIVE Urine Bilirubin NEGATIVE Urine Urobilinogen NEGATIVE Ur Leukocyte Esterase TRACE H Urine Bacteria (Auto) TRACE Squamous Epi Cells Auto 2 Amorphous Sediment Auto 1+ Urine Mucus (Auto) FEW Urine Ascorbic Acid NEGATIVE (LIENYOUNG) Discharge <[email or web address] - Last Filed: 07/30/20 18:29> <ZON[address] L[address] - Last Filed: 07/30/20 22:08> - Discharge Clinical Impression: Upper abdominal pain Nausea and vomiting Qualifiers: Vomiting type: unspecified Vomiting Intractability: non-intractable Qualified Code(s): R11.2 - Nausea with vomiting, unspecified Condition: Stable Disposition: HOME, SELF-CARE Instructions: Abdominal Pain ([facility]) Prescriptions: Ondansetron [Zofran Odt 4 mg Tablet] 1 tab PO Q6HP PRN #12 tab.rapdis PRN Reason: For Nausea/Vomiting Sucralfate [Carafate Susp 1 Gm/10 Ml Udcup] 1 gm PO ACHS 10 Days #1 udc Omeprazole 20 mg PO DAILY #20 capsule.dr Referrals: SAVANNA LATIF MD [Primary Care Provider] - Follow up as needed
[2020-07-30 16:41] LABS: AMORPHOUS SEDIMENT,URINE 1+ /HPF; APPEARANCE,URINE TURBID; BILIRUBIN,URINE NEGATIVE (NEGATIVE); COLOR,URINE YELLOW; GLUCOSE, URINE NEGATIVE (NEGATIVE); KETONES,URINE 20 mg/dL (NEGATIVE); LEUKOCYTE ESTERASE,URINE TRACE (NEGATIVE); NITRITE,URINE NEGATIVE (NEGATIVE); PROTEIN,URINE NEGATIVE (NEGATIVE); URINE SPECIFIC GRAVITY 1.011; UROBILINOGEN,URINE NEGATIVE mg/dL (<2.0)
[2020-07-30] MEDS ORDERED: LORAZEPAM INJ 2 MG/1 ML VIAL IV ONE (17:19)
--- NOTE | 2020-07-30 21:20 | RADIOLOGY REPORT (SQ) ---
EXAM DESCRIPTION: CT ABD/PELVIS WITH IV ORAL CLINICAL HISTORY: 35 years Female; epig, LUQ pain TECHNIQUE: CT of the abdomen and pelvis with intravenous contrast.. Oral contrast was used. Delayed imaging of the abdomen and pelvis was also performed. All CT scans at this facility use dose modulation, iterative reconstruction, and/or weight based dosing when appropriate to reduce radiation dose to as low as reasonably achievable. This exam was performed according to our department optimization program which includes automated exposure control, adjustment of the mA and/or kv according to patient size and/or use of iterative reconstruction technique. COMPARISON: CT scan of the abdomen and pelvis March 11, 2020 FINDINGS: Lower chest: Lung bases are clear. Heart size is normal. There is a sliding hiatal hernia with the gastric pouch present in the chest. Abdomen: Liver and biliary tree: Homogeneous enhancement of the liver. The gallbladder is not seen. Portal vein is patent. Hepatic veins are not yet opacified. No biliary dilatation. Pancreas: Normal Spleen:Within normal limits Kidneys: Kidneys are normal in size, shape and position. No stones. No mass or hydronephrosis. Symmetric renal enhancement. Adrenal glands:Within normal limits Vascular structures:Within normal limits Retroperitoneum: No mass or lymphadenopathy Abdominal wall: normal GI: Postsurgical changes of gastric bypass is seen with surgical anastomotic line in the stomach and small bowel. Bowel is not dilated. There are scattered stool in the colon. Oral contrast is seen in the small bowel and the right colon. The left colon is decompressed. No focal bowel wall thickening. Appendix: The appendix appears normal. General: No free air. No free fluid Pelvis: Lymph nodes: No mass or lymphadenopathy Bladder: Unremarkable. Pelvis: An IUD device is present in the uterus and the appearance is stable. No adnexal mass. Bones: No acute bone findings. IMPRESSION: Postsurgical change of gastric bypass surgery. No acute process. No significant interval change.
[2020-07-30 22:25] VITALS: BP 138/84
== END 2020-07-30 23:09 | disposition home or self-care (01) ==
LOC: ER 12:23
DX: R10.12 Left upper quadrant pain (principal); R10.812 Left upper quadrant abdominal tenderness; R11.2 Nausea with vomiting, unspecified; R51.9 Headache, unspecified; H53.149 Visual discomfort, unspecified; R50.9 Fever, unspecified; R79.89 Other specified abnormal findings of blood chemistry; F17.200 Nicotine dependence, unspecified, uncomplicated; F12.10 Cannabis abuse, uncomplicated; Z98.84 Bariatric surgery status; Z88.8 Allergy status to other drugs, medicaments and biological substances
CPT/HCPCS: 99285; 96361; 96374; 36415; 83690; 84703; 85025; 80053; 81001; 74177; J3490 ×2; J2060; J2405; J7030

== ENCOUNTER 2020-08-23 22:47 | Emergency (ER) | payer BC ==
[2020-08-23 22:55] VITALS: BP 117/71
--- NOTE | 2020-08-23 23:19 | ER Document Report ---
ED Medical Screen (RME) - General Chief Complaint: Back Pain Stated Complaint: NECK AND ENTIRE BACK PAIN Time Seen by Provider: 08/23/20 22:55 Primary Care Provider: SAVANNA LATIF MD [Primary Care Provider] - Follow up as needed Mode of Arrival: Wheelchair Information source: Patient Notes: 35-year-old female presents to ED for complaint of a flareup of fibromyalgia. She states she thinks the stress is caused her fibromyalgia to flareup. She states she also has a headache for 2 days and is getting worse. She states she has knots throughout her back. She states she does not have any bony tenderness at all at this time. We have palpated her back and she states she has areas all over her back that sometimes when she goes to the doctor the acute injections right into the back and that helps. She states she does have a history of depression anxiety and hypothyroid. She also has a history of sciatica and diabetes that is diet-controlled. States she does have a history of a gastric bypass and cholecystectomy tonsillectomy and a wisdom tooth removed. She states she does not drink smoke or use any illicit drugs. I have gone over the multiple treatments that she has had in the past for this pain and she stated they did not help. I have offered her morphine I will fill her Percocet hydrocodone and she states none of them helped. She states she is allergic to ibuprofen. She states when she got Valium and Xanax they did not help her. I did discuss this with Dr. Gay who suggested Haldol 1 and offered her a dose of Haldol she stated she just wanted another doctor who could tell her what she needed for her fibromyalgia because she did not want to talk to me anymore that she was I was making her mad. I have greeted and performed a rapid initial assessment of this patient. A comprehensive ED assessment and evaluation of the patient, analysis of test results and completion of medical decision making process will be conducted by an additional ED providers. TRAVEL OUTSIDE OF THE [place] IN LAST 30 DAYS: No - Related Data Allergies/Adverse Reactions: NSAIDS (Non-Steroidal Anti-Inflamma [Nsaids] Allergy (Mild, Verified 08/23/20 22:55) prednisone [Prednisone] Allergy (Mild, Verified 08/23/20 22:55) Past Medical History - Social History Frequency of alcohol use: None Drug Abuse: Prescription drugs - Past Medical History Cardiac Medical History: Denies: Hx Atrial Fibrillation, Hx Congestive Heart Failure, Hx Heart Attack, Hx Hypercholesterolemia, Hx Hypertension Pulmonary Medical History: Reports: Hx Bronchitis, Hx Pneumonia Denies: Hx Asthma, Hx COPD Neurological Medical History: Reports: Hx Migraine, Hx Seizures - Increased frequency with stress-tonic clonic-unchanged. noncompliant w/meds Endocrine Medical History: Reports: Hx Diabetes Mellitus Type 2 - Gestational Diabetes, Hx Hypothyroidism. Denies: Hx Diabetes Mellitus Type 1 Renal/ Medical History: Reports: Hx Ovarian Cysts. Denies: Hx Ectopic , Hx Kidney Stones GI Medical History: Reports: Hx Gastroesophageal Reflux Disease, Hx Hiatal Hernia, Hx Irritable Bowel, Hx Endoscopy Musculoskeltal Medical History: Reports Hx Arthritis, Reports Hx Fibromyalgia Skin Medical History: Reports Hx Eczema Psychiatric Medical History: Reports: Hx Anxiety, Hx Attention Deficit Hyperactivity Disorder, Hx Depression, Hx Personality Disorder, Hx Post Traumatic Stress Disorder Past Surgical History: Reports: Hx Abdominal Surgery - gastric bypass, Hx Cholecystectomy, Hx Gastric Bypass Surgery, Hx Oral Surgery - wisdom teeth, Hx Tonsillectomy - Immunizations Immunizations up to date: Yes Hx Diphtheria, Pertussis, Tetanus Vaccination: Yes - 2011 Physical Exam - Vital signs Vitals: Temp Pulse Resp BP Pulse Ox 98.4 F 98 18 117/71 98 08/23/20 22:51 08/23/20 22:51 08/23/20 22:51 08/23/20 22:51 08/23/20 22:51 Course - Vital Signs Vital signs: Temp Pulse Resp BP Pulse Ox 98.4 F 98 18 117/71 98 08/23/20 22:51 08/23/20 22:51 08/23/20 22:51 08/23/20 22:51 08/23/20 22:51 Doctor's Discharge - Discharge Referrals: SAVANNA LATIF MD [Primary Care Provider] - Follow up as needed
== END 2020-08-23 23:48 | disposition left against medical advice (07) ==
LOC: ER 22:47
DX: M54.9 Dorsalgia, unspecified (principal); M54.2 Cervicalgia; M79.7 Fibromyalgia; R51.9 Headache, unspecified; F32.9 Major depressive disorder, single episode, unspecified; F41.9 Anxiety disorder, unspecified; E03.9 Hypothyroidism, unspecified; Z79.899 Other long term (current) drug therapy; Z88.8 Allergy status to other drugs, medicaments and biological substances; E11.9 Type 2 diabetes mellitus without complications; Z53.20 Procedure and treatment not carried out because of patient's decision for unspecified reasons
CPT/HCPCS: 99281